=== PATIENT | female | born 1965 | race Caucasian/White ===

== ENCOUNTER 2016-10-31 15:00 | Emergency (ER) | payer MEDICARE, MEDICAID ==
[2016-10-31] MEDS ORDERED: Ondansetron 4 MG/2 ML SDV IVPUSH ONE (16:22)
[2016-10-31] MEDS ORDERED: Ketorolac 30 MG/ML SDV IVPUSH STA (16:25)
--- NOTE | 2016-10-31 16:27 | EDM.PDOC ---
ED HPI GENERAL MEDICAL PROBLEM - General Chief Complaint: Abdominal Pain Stated Complaint: BACK PAIN Time Seen by Provider: 10/31/16 15:14 Source of Information: Reports: Patient, Family (Daughter), Old Records, RN Notes Reviewed History Limitations: Reports: Uncooperative (The patient is yelling and screaming, while rolling around on the gurney. She answers few questions - most were answered by her daughter.) - History of Present Illness INITIAL COMMENTS - FREE TEXT/NARRATIVE: The patient states that she has been experiencing bloody diarrhea and left- sided abdominal pain for the past 2-1/2 months. She underwent a CT of the abdomen and pelvis with oral and IV contrast on 10/22/2016, which demonstrated an 8.8 cm cystic mass within the pelvis, most likely adnexal, although the differential included both benign as well as malignant ovarian tumors. The remainder of the CT scan was unremarkable. She then underwent a transvaginal ultrasound the following day, 10/23/26, which demonstrated a complex cystic structure up to 9.0 cm which could represent a complicated adnexal cyst, with the differential including both benign and malignant etiologies, as well as an old hematoma. She is scheduled for an EGD and colonoscopy per Dr. Maxwell this coming 11/04/2016. The patient states that she was experiencing some left lower quadrant abdominal cramping this morning, then went to the bathroom (likely both urination and defecation), then "something exploded" causing severe pain primarily on the left side of the abdomen, but felt all over, including to the left flank. She has had nausea, but no emesis. No recent fever. No urinary symptoms. No prior similar symptoms. The patient's PCP is Cathy Cramer. Treatments CONDUCTOR YARD: Reports: Other (see below) Other Treatments CONDUCTOR YARD: tramadol 100 mg at 1300 Left Lower Abdominal Pain Score (Numeric/FACES): 10 - Related Data Allergies Allergy/AdvReac Type Severity Reaction Status Date / Time acetaminophen Allergy Other Verified 10/31/16 15:02 benzonatate Allergy Cannot Verified 10/31/16 15:02 Remember ceftriaxone Allergy Redness Verified 10/31/16 15:02 cetirizine Allergy Hives Verified 10/31/16 15:02 morphine Allergy Cannot Verified 10/31/16 15:02 Remember Home Meds: Home Meds Aspirin [Ecotrin] 162.5 mg PO DAILY 03/09/14 [History] Pantoprazole [ProTONIX] 40 mg PO DAILY #30 tab.cr 05/14/14 [Rx] SUMAtriptan [Imitrex] 50 mg PO Q2H PRN #10 tablet 05/14/14 [Rx] HYDROcodone/Ibuprofen [Vicoprofen 7.5-200 mg Tablet] 1 each PO Q6H PRN #15 tablet 12/26/14 [Rx] LORazepam 0.5 mg PO DAILY PRN 11/29/15 [History] Orphenadrine [Norflex] 1 tab PO Q12H #20 tab.er 11/29/15 [Rx] Sertraline [Zoloft] 50 mg PO DAILY 11/29/15 [History] metFORMIN [Glucophage] 500 mg PO DAILY 11/29/15 [History] Past Medical History HEENT History: Reports: Other (See Below) Respiratory History: Reports: COPD Gastrointestinal History: Reports: GERD, Irritable Bowel Syndrome Genitourinary History: Reports: Renal Calculus 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: Other (See Below) (Ovarian cysts) Neurological History: Reports: CVA (2011, with left hemiparesis) Psychiatric History: Reports: Anxiety, Depression Endocrine/Metabolic History: Reports: Diabetes, Type II, Obesity/BMI 30+ Hematologic History: Reports: Iron Deficiency Oncologic (Cancer) History: Reports: Uterine - Past Surgical History GI Surgical History: Reports: Cholecystectomy Female Surgical History: Reports: Section (x 2), Hysterectomy, Tubal Ligation Social & Family History - Tobacco Use Smoking Status *Q: Former Smoker Years of Tobacco use: 30 Packs/Tins Daily: 4 Month Tobacco Last Used: Dec 2014 - Caffeine Use Caffeine Use: Reports: Coffee - Alcohol Use Days Per Week of Alcohol Use: 0 - Recreational Drug Use Recreational Drug Use: No - Living Situation & Occupation Living situation: Reports: , with Spouse Occupation: Unemployed ED ROS GENERAL - Review of Systems Review Of Systems: Unable To Obtain GI/Abdominal: Reports: Abdominal Pain (as per the HPI), Bloody Stool (as per the HPI), Diarrhea (as per the HPI) ED EXAM, GI/ABD - Physical Exam Exam: See Below Exam Limited By: Other (Patient histrionics) General Appearance: Alert, WD/WN, No Apparent Distress Eyes: Bilateral: Normal Appearance, EOMI Ears: Normal External Exam, Hearing Grossly Normal Nose: Normal Inspection, No Blood Throat/Mouth: Normal Inspection, Normal Lips, Normal Voice, No Airway Compromise Head: Atraumatic, Normocephalic Neck: Normal Inspection, Full Range of Motion Respiratory/Chest: No Respiratory Distress, Lungs Clear, Normal Breath Sounds, No Accessory Muscle Use Cardiovascular: Normal Peripheral Pulses, Regular Rate, Rhythm, No Gallop, No JVD, No Murmur, No Rub GI/Abdominal Exam: Normal Bowel Sounds, Soft, No Organomegaly, No Distention, No Abnormal Bruit, No Mass, Pelvis Stable, Tender (Patient reports tenderness to her left lower quadrant primarily, also to her left upper quadrant. Essentially nontender to the right abdomen.), Other (Obese.) (Female) Exam: Deferred Back Exam: Normal Inspection, Full Range of Motion, CVA Tenderness (L). No: CVA Tenderness (R) Extremities: Normal Inspection, Normal Range of Motion, No Pedal Edema, Normal Capillary Refill Neurological: Alert, Oriented, Normal Cognition, No Motor/Sensory Deficits Psychiatric: Other (Unable to assess) Skin Exam: Warm, Intact, Normal Color, No Rash, Diaphoretic Lymphatic: No Adenopathy Course - Vital Signs Last Recorded V/S: Last Vital Signs Temp 36.8 C 10/31/16 15:02 Pulse 80 10/31/16 15:02 Resp 20 10/31/16 15:02 BP 133/107 H 10/31/16 15:02 Pulse Ox 100 10/31/16 15:02 - Orders/Labs/Meds Orders: Active Orders 24 hr Category Date Time Status Sodium Chloride 0.9% [Normal Saline] 1,000 ml Med 10/31/16 16:30 Active IV ASDIRECTED Sodium Chloride 0.9% [Saline Flush] Med 10/31/16 17:29 Active 10 ml FLUSH ONETIME PRN Medication Orders Sodium Chloride (Normal Saline) 1,000 mls @ 150 mls/hr IV ASDIRECTED SREEDHAR Last Admin: 10/31/16 16:30 Dose: 150 mls/hr Sodium Chloride (Saline Flush) 10 ml FLUSH ONETIME PRN PRN Reason: IV FLUSH Last Admin: 10/31/16 17:38 Dose: 10 ml Labs: Laboratory Tests 10/31/16 10/31/16 10/31/16 Range/Units 16:22 16:22 16:57 WBC 9.62 (3.98-10.04) K/mm3 RBC 4.87 (3.98-5.22) M/mm3 Hgb 14.0 (11.2-15.7) gm/L Hct 42.5 (34.1-44.9) % MCV 87.3 (79.4-94.8) fl MCH 28.7 (25.6-32.2) pg MCHC 32.9 (32.2-35.5) g/dl RDW Std Deviation 43.6 (36.4-46.3) fL Plt Count 318 (182-369) K/mm3 MPV 10.3 (9.4-12.3) fl Neutrophils % (Manual) 52 (40-60) % Band Neutrophils % 0 (0-10) % Lymphocytes % (Manual) 43 H (20-40) % Atypical Lymphs % 0 % Monocytes % (Manual) 3 (2-10) % Eosinophils % (Manual) 2 (0.7-5.8) % Basophils % (Manual) 0 L (0.1-1.2) Platelet Estimate Adequate RBC Morph Comment Normal Sodium 141 (136-145) mEq/L Potassium 3.7 (3.5-5.1) mEq/L Chloride 103 (98-107) mEq/L Carbon Dioxide 28 (21-32) mEq/L Anion Gap 13.7 (5-15) BUN 14 (7-18) mg/dL Creatinine 0.8 (0.55-1.02) mg/dL Est Cr Clr Drug Dosing 65.80 mL/min Estimated GFR (MDRD) > 60 (>60) mL/min BUN/Creatinine Ratio 17.5 (14-18) Glucose 106 (74-106) mg/dL Calcium 9.9 (8.5-10.1) mg/dL Total Bilirubin 0.5 (0.2-1.0) mg/dL AST 39 H (15-37) U/L ALT 71 H (14-59) U/L Alkaline Phosphatase 69 (46-116) U/L Total Protein 7.6 (6.4-8.2) g/dl Albumin 4.2 (3.4-5.0) g/dl Globulin 3.4 gm/dL Albumin/Globulin Ratio 1.2 (1-2) Lipase 182 (73-393) U/L Urine Color Yellow (Yellow) Urine Appearance Slt cloudy H (Clear) Urine pH 7.0 (5.0-8.0) Ur Specific [place] 1.020 (1.005-1.030) Urine Protein Negative (Negative) Urine Glucose (UA) Negative (Negative) Urine Ketones Negative (Negative) Urine Occult Blood Trace-lysed H (Negative) Urine Nitrite Negative (Negative) Urine Bilirubin Negative (Negative) Urine Urobilinogen 0.2 (0.2-1.0) Ur Leukocyte Esterase Negative (Negative) Urine RBC 5-10 H (0-5) /hpf Urine WBC 0-5 (0-5) /hpf Ur Epithelial Cells 0-5 (0-5) /hpf Urine Bacteria Rare (FEW) /hpf Urine Mucus Not seen (FEW) /hpf Meds: Medications Generic Name Dose Route Start Last Admin Trade Name Freq PRN Reason Stop Dose Admin Sodium Chloride 1,000 mls @ 150 mls/hr 10/31/16 16:30 10/31/16 16:30 Normal Saline IV 150 mls/hr ASDIRECTED SREEDHAR Administration Sodium Chloride 10 ml 10/31/16 17:29 10/31/16 17:38 Saline Flush FLUSH 10 ml ONETIME PRN Administration IV FLUSH Discontinued Medications Generic Name Dose Route Start Last Admin Trade Name Freq PRN Reason Stop Dose Admin Diatrizoate Meglum/Diatrizoate Sod 120 ml 10/31/16 17:29 10/31/16 17:37 Gastrografin 37% PO 10/31/16 17:30 90 ml ONETIME ONE Administration Iopamidol 150 ml 10/31/16 17:29 10/31/16 17:37 Isovue-300 (61%) IVPUSH 10/31/16 17:30 125 ml ONETIME ONE Administration Ketorolac Tromethamine 30 mg 10/31/16 16:25 10/31/16 16:33 Toradol IVPUSH 10/31/16 16:26 30 mg ONETIME STA Administration Ondansetron HCl 4 mg 10/31/16 16:22 10/31/16 16:31 Zofran IVPUSH 10/31/16 16:23 4 mg ONETIME ONE Administration - Re-Assessments/Exams Free Text/Narrative Re-Assessment/Exam: 10/31/16 16:26 The patient is rolling around on the gurney, yelling and screaming. Her behavior appears to be histrionic. When seen by me in this ED 11/29/2015 for lower back pain, she was found to be malingering and drug-seeking. She was discharged home. She subsequently had an opportunity to have a MRI of her lumbar spine performed, but did not, instead, she had a MRI of her left knee performed on 02/27/2016, buttressing my assertion that she was malingering and drug seeking. 10/31/16 18:0 CT of the abdomen and pelvis with oral and IV contrast is read by Dr. Reich as: 1. Cystic mass within the pelvis slightly changed in configuration from prior study but otherwise unchanged. 2. Fatty infiltration within the liver. 3. Nothing acute is appreciated on CT study of the abdomen and pelvis. 10/31/16 18:05 Test results discussed with the patient and her daughter. The patient is hostile and screaming for pain medication. She was given Toradol 30 mg IVP earlier. She states that she is allergic to both Tylenol and morphine. Her behavior is not consistent with legitimate pain, rather, it is mostly histrionic , and with today's essentially normal workup that does not demonstrate an apparent painful process, it appears that the patient is again drug seeking. Review of the [place] INSURANCE EXAMINING CLERK finds that the patient has 21 prescriptions for controlled substances, by 5 prescribers. She most recently filled a prescription for tramadol 30 tablets on 10/23/2016. She has numerous prior prescriptions for Ativan. It is unclear, but the patient may be seeking one or both of these. Departure - Departure Time of Disposition: 18:07 Disposition: Home, Self-Care 01 Condition: Good Clinical Impression: Abdominal pain of unknown etiology, Drug-seeking behavior, Malingering - Discharge Information Instructions: Abdominal Pain, Adult, [id number] Referrals: Cathy Cramer PA-C [Primary Care Provider] - Forms: ED Department Discharge Additional Instructions: You were seen in the emergency room for left-sided abdominal pain and left flank pain. Workup in the ER included blood work, a urinalysis, and a CT scan of your abdomen and pelvis. Your entire workup was unremarkable. The CT scan redemonstrated a cystic mass within your left pelvis, however, there was no suggestion of bleeding or other inflammatory process, and the mass would not be responsible for your presentation. The cause of your symptoms is not known. We recommend you follow-up with your PCP, Cathy Cramer, at the next available appointment. We recommend you proceed with your previously scheduled EGD/colonoscopy with Dr. Maxwell this coming 11/04/2016. If any other problems, please do not hesitate to return to the ER. - My Orders Last 24 Hours: My Active Orders 10/31/16 16:30 Sodium Chloride 0.9% [Normal Saline] 1,000 ml IV ASDIRECTED 10/31/16 17:29 Sodium Chloride 0.9% [Saline Flush] 10 ml FLUSH ONETIME PRN - Assessment/Plan Last 24 Hours: My Active Orders 10/31/16 16:30 Sodium Chloride 0.9% [Normal Saline] 1,000 ml IV ASDIRECTED 10/31/16 17:29 Sodium Chloride 0.9% [Saline Flush] 10 ml FLUSH ONETIME PRN
[2016-10-31] MEDS ORDERED: Sodium Chloride 0.9% 1,000 ML IV SCH (16:30)
[2016-10-31] MEDS ORDERED: Diatrizoate Meglumine/Diatrizoate Sodium 37% 120 ML Bottle PO ONE (17:29)
[2016-10-31] MEDS ORDERED: Iopamidol 612 MG/ML 150 ML Bottle IVPUSH ONE (17:29)
[2016-10-31] MEDS ORDERED: Sodium Chloride 0.9% 10 ML Syringe FLUSH PRN (17:29)
--- NOTE | 2016-10-31 17:59 | CT ---
CT abdomen and pelvis Technique: Multiple axial sections were obtained from above the dome of the diaphragm inferiorly through the pubic symphysis. Intravenous and oral contrast was utilized. Delayed images were obtained through the bladder. Comparison: Previous CT abdomen and pelvis exam of 10/22/16. Findings: Visualized lung bases are clear. Liver shows diffuse fatty infiltration without focal abnormality. Surgical clips are seen from previous cholecystectomy. Spleen appears within normal limits. Adrenal glands show no nodule. Kidneys show symmetric contrast enhancement without hydronephrosis or mass. Pancreas is within normal limits. Appendix is seen and appears normal. Aorta shows no aneurysmal dilatation. No retroperitoneal adenopathy or mesenteric abnormalities are seen. Cystic mass is seen within the pelvis measuring 8.6 x 7.3 cm. This is slightly changed in configuration from prior study but otherwise unchanged. No additional pelvic abnormality is seen. No inflammatory change is seen. No free fluid is seen. Delayed images shows contrast within the distal ureters and within the bladder. Bone window settings were reviewed which shows disc space narrowing at L5-S1 with vacuum phenomena. Impression: 1. Cystic mass within the pelvis slightly changed in configuration from prior study but otherwise unchanged. 2. Fatty infiltration within the liver. 3. Nothing acute is appreciated on CT study of the abdomen and pelvis. Diagnostic code #3
[2016-10-31 18:33] VITALS: BP 145/80
== END 2016-10-31 18:15 | disposition home or self-care (01) ==
LOC: JD.ED 15:00
DX: R10.32 Left lower quadrant pain (principal); J44.9 Chronic obstructive pulmonary disease, unspecified; K21.9 Gastro-esophageal reflux disease without esophagitis; F41.9 Anxiety disorder, unspecified; F32.9 Major depressive disorder, single episode, unspecified; E11.9 Type 2 diabetes mellitus without complications; I69.354 Hemiplegia and hemiparesis following cerebral infarction affecting left non-dominant side; E66.9 Obesity, unspecified; Z76.5 Malingerer [conscious simulation]; Z87.442 Personal history of urinary calculi; Z85.42 Personal history of malignant neoplasm of other parts of uterus; Z90.49 Acquired absence of other specified parts of digestive tract; Z90.710 Acquired absence of both cervix and uterus; Z98.51 Tubal ligation status; Z98.890 Other specified postprocedural states; Z88.5 Allergy status to narcotic agent; Z88.8 Allergy status to other drugs, medicaments and biological substances; Z79.82 Long term (current) use of aspirin; Z79.84 Long term (current) use of oral hypoglycemic drugs; Z79.899 Other long term (current) drug therapy
CPT/HCPCS: 36415; 74177; 80053; 81001; 83690; 85025; 96361; 96374; 96375; 99284; J1885; J2405; J7040; J7050; P9612; Q9963; Q9967

== ENCOUNTER 2016-11-04 07:53 | Day surgery (SDC) | payer MEDICARE, MEDICAID ==
[~2016-11-04 07:53] MED LIST: Lactated Ringers 1,000 ML IV SCH; Lidocaine 1% 4 ML ONE; Lidocaine 1%/Sod Bicarbonate in NS 8.4% 1 ML Syringe PRN; Propofol 200 MG/20 ML SDV ONE; Sodium Chloride 0.9% 10 ML Syringe FLUSH PRN
--- NOTE | 2016-11-04 08:46 | PCM.PREANE ---
Preanesthetic Assessment - Anesthesia/Transfusion/Family Hx Anesthesia History: Prior Anesthesia Without Reaction Family History of Anesthesia Reaction: No Transfusion History: No Prior Transfusion(s) - Review of Systems General: No Symptoms Pulmonary: No Symptoms Cardiovascular: No Symptoms Gastrointestinal: Abdominal Pain (for 3 months), Diarrhea, Nausea Neurological: No Symptoms, Other (stroke 5 years ago- lost left side and 86% recovery) Other: Reports: Easy Bruising, Diabetes, Depression, Anxiety - Physical Assessment NPO Status Date: 11/03/16 NPO Status Time: 23:00 O2 Sat by Pulse Oximetry: 95 Respiratory Rate: 16 Vital Signs: Last Vital Signs Temp 96.8 F 11/04/16 08:05 Pulse 67 11/04/16 08:05 Resp 16 11/04/16 08:05 BP 118/85 11/04/16 08:05 Pulse Ox 95 11/04/16 08:05 Height: 5 ft 1 in Weight: 94.801 kg ASA Class: 3 Mental Status: Alert & Oriented x3 Airway Class: Mallampati = 1 Dentition: Reports: Partial (top at home) Thyro-Mental Finger Breadths: 3 Mouth Opening Finger Breadths: 3 ROM/Head Extension: Full Lungs: Clear to Auscultation, Normal Respiratory Effort Cardiovascular: Regular Rate, Regular Rhythm - Lab Values: Laboratory Last Values POC Glucose 108 mg/dL (70-105) H 11/04/16 08:22 10/31/16 HGB 14.0 Plt 318 Lytes WNL BUN 14 Cr .8 - Allergies Allergies/Adverse Reactions: Allergies Allergy/AdvReac Type Severity Reaction Status Date / Time acetaminophen Allergy Other Verified 10/31/16 15:02 benzonatate Allergy Airway Verified 11/01/16 11:26 Tightness ceftriaxone Allergy Hives Verified 11/01/16 11:26 cetirizine Allergy Hives Verified 10/31/16 15:02 morphine Allergy Airway Verified 11/01/16 11:26 Tightness Dust Allergy Other Uncoded 11/01/16 11:26 Pollen Allergy Other Uncoded 11/01/16 11:26 - Blood Blood Available: No - Acknowledgements Anesthesia Type Planned: MAC Pt an Appropriate Candidate for the Planned Anesthesia: Yes Alternatives and Risks of Anesthesia Discussed w Pt/Guardian: Yes Pt/Guardian Understands and Agrees with Anesthesia Plan: Yes PreAnesthesia Questionnaire HEENT History: Reports: Allergic Rhinitis, Hard of Hearing, Other (See Below) Other HEENT History: Tinnitus, ear itching Cardiovascular History: Reports: High Cholesterol Other Cardiovascular History: CVA in 2011 Respiratory History: Reports: COPD Other Respiratory History: emphysema Gastrointestinal History: Reports: GERD, Inflammatory Bowel Disease, Other (See Below) Other Gastrointestinal History: Abdominal pain, diarrhea Genitourinary History: Reports: Other (See Below) Other Genitourinary History: Dysuria, hematuria 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 (See Below) Other OB/BYN History: Pelvic mass Musculoskeletal History: Reports: Arthritis, Other (See Below) Other Musculoskeletal History: Medial meniscus tear Neurological History: Reports: CVA, Migraines, TIA, Vertigo, Other (See Below) Other Neuro History: Radial sensory nerve injury, loss of coordination, poor short term memory Psychiatric History: Reports: Anxiety Endocrine/Metabolic History: Reports: Diabetes, Type II, Obesity/BMI 30+ Hematologic History: Reports: None Immunologic History: Reports: Other (See Below) Other Immunologic History: IgG deficiency Oncologic (Cancer) History: Reports: Uterine Dermatologic History: Reports: None - Past Surgical History Head Surgeries/Procedures: Reports: None HEENT Surgical History: Reports: Oral Surgery (cysts) Cardiovascular Surgical History: Reports: None Respiratory Surgical History: Reports: None GI Surgical History: Reports: Cholecystectomy Female Surgical History: Reports: Section, Hysterectomy, Other (See Below) (ovarian cysts removed) Endocrine Surgical History: Reports: None Neurological Surgical History: Reports: None Musculoskeletal Surgical History: Reports: Other (See Below) Other Musculoskeletal Surgeries/Procedures:: Hand surgery Oncologic Surgical History: Reports: None - SUBSTANCE USE Smoking Status *Q: Former Smoker (quit dec 2013- smoked 1 ppd for 30plus years) Tobacco Use Within Last Twelve Months: No Second Hand Smoke Exposure: No Days Per Week of Alcohol Use: 0 Recreational Drug Use History: No - HOME MEDS Home Medications: Home Meds Aspirin [Ecotrin] 325 mg PO DAILY 03/09/14 [History] Pantoprazole [ProTONIX] 40 mg PO DAILY #30 tab.cr 05/14/14 [Rx] Sertraline [Zoloft] 100 mg PO DAILY 11/29/15 [History] metFORMIN [Glucophage] 500 mg PO DAILY 11/29/15 [History] SUMAtriptan [Imitrex] 50 mg PO ASDIRECTED PRN 11/01/16 [History] - CURRENT (IN HOUSE) MEDS Current Meds: Current Medications Lactated Ringer's (Ringers, Lactated) 1,000 mls @ 125 mls/hr IV ASDIRECTED SREEDHAR Stop: 11/04/16 23:00 Last Admin: 11/04/16 08:20 Dose: 125 mls/hr Lidocaine/Sodium Bicarbonate (Buffered Lidocaine 1% In Ns 8.4%) 0.25 ml .XX ONETIME PRN PRN Reason: Prior to IV Start Stop: 11/04/16 18:00 Last Admin: 11/04/16 08:20 Dose: 0.25 ml Sodium Chloride (Saline Flush) 10 ml FLUSH ASDIRECTED PRN PRN Reason: Keep Vein Open Stop: 11/04/16 18:00 Discontinued Medications Lidocaine HCl (Xylocaine-Mpf 1%) Confirm Administered Dose 4 mls @ as directed .ROUTE .STK-MED ONE Stop: 11/04/16 07:15 Propofol (Diprivan 20 Ml) Confirm Administered Dose 200 mg .ROUTE .STK-MED ONE Stop: 11/04/16 07:15
[2016-11-04] MEDS ORDERED: fentaNYL 100 MCG/2 ML SDV ONE (10:38)
[2016-11-04] MEDS ORDERED: Propofol 200 MG/20 ML SDV ONE (10:48)
--- NOTE | 2016-11-04 10:50 | PCM48HPAN ---
Post Anesthesia Note - EVALUATION WITHIN 48HRS OF ANESTHETIC Vital Signs in Normal Range: Yes Patient Participated in Evaluation: Yes Respiratory Function Stable: Yes Airway Patent: Yes Cardiovascular Function Stable: Yes Hydration Status Stable: Yes Pain Control Satisfactory: Yes Nausea and Vomiting Control Satisfactory: Yes Mental Status Recovered: Yes
--- NOTE | 2016-11-04 10:52 | PCM.OPNOTE ---
- General Post-Op/Procedure Note Date of Surgery/Procedure: 11/04/16 Operative Procedure(s): 1. Esophagogastroduodenoscopy with antral polypectomy using hot snare. 2. Colonoscopy with random rectal biopsies 2 using cold forceps Findings: 1. 8 mm antral polyp otherwise normal upper endoscopy 2. Sigmoid diverticulosis, no mass lesions Pre Op Diagnosis: Chronic diarrhea with red rectal bleeding and history of melena Post-Op Diagnosis: 1. Antral polyp. 2. Sigmoid diverticulosis, uncomplicated Anesthesia Technique: MAC, Moderate Sedation Primary Surgeon: Naren Maxwell Pathology: 1. Antral polyp 2. Random rectal biopsies 2 EBL in mLs: 0 Complications: None Condition: Good Free Text/Narrative:: After adequate IV sedation and analgesia was obtained the patient was placed on her left side. Through a bite block a lubricated upper endoscope was passed into the esophagus and advanced under direct vision to the stomach. Additional air was given here. The scope was introduced into the duodenum. The second and first parts of the duodenum were endoscopically normal with no mass lesions or inflammatory changes seen. The pylorus was unremarkable as well. At the incisure angularis there was a antral polyp which was removed with hot snare. In the retroflexed view there was no hiatal hernia. The fundus and cardiac regions were normal. The body of the stomach was unremarkable as well. There were no mass lesions or inflammatory changes seen in any of these areas. The body of the esophagus was normal. The GE junction was sharp and had no evidence of esophagitis. The vocal cords were briefly visualized on extubation and were normal. Perianal inspection and digital rectal examination were performed next and were unremarkable. A lubricated colonoscope was inserted into the rectum and easily advanced to the cecum without difficulty. The bowel preparation was adequate. The cecum, right colon, transverse and descending colons were endoscopically normal with no mass lesions or inflammatory changes seen in these areas. There was no extrinsic compression that was obvious. The sigmoid had a few scattered moderate size diverticuli which were uncomplicated. There was slight muscular hypertrophy in the sigmoid. The rectum in both views was unremarkable. Given her history of diarrhea I took 2 random biopsies for histologic evaluation. Air was removed as I finished the procedure. Cloth Bleaching Range Back Tender photographs were taken for each procedure for the and patient for the record.
[2016-11-04 11:02] VITALS: BP 120/84
== END 2016-11-04 11:30 | disposition home or self-care (01) ==
LOC: JD.SDS 07:53
PROVIDERS: ATTEND Surgery
DX: K31.7 Polyp of stomach and duodenum (principal); K57.30 Diverticulosis of large intestine without perforation or abscess without bleeding; M19.90 Unspecified osteoarthritis, unspecified site; J44.9 Chronic obstructive pulmonary disease, unspecified; K21.9 Gastro-esophageal reflux disease without esophagitis; E78.00 Pure hypercholesterolemia, unspecified; K58.9 Irritable bowel syndrome, unspecified; G43.909 Migraine, unspecified, not intractable, without status migrainosus; F41.9 Anxiety disorder, unspecified; E66.09 Other obesity due to excess calories; E11.9 Type 2 diabetes mellitus without complications; I10 Essential (primary) hypertension; Z86.73 Personal history of transient ischemic attack (TIA), and cerebral infarction without residual deficits; Z85.42 Personal history of malignant neoplasm of other parts of uterus; Z87.442 Personal history of urinary calculi; Z87.01 Personal history of pneumonia (recurrent); Z87.891 Personal history of nicotine dependence; Z88.1 Allergy status to other antibiotic agents; Z88.5 Allergy status to narcotic agent; Z88.6 Allergy status to analgesic agent; Z88.8 Allergy status to other drugs, medicaments and biological substances; Z91.048 Other nonmedicinal substance allergy status; Z79.82 Long term (current) use of aspirin; Z79.84 Long term (current) use of oral hypoglycemic drugs; Z79.52 Long term (current) use of systemic steroids; Z79.899 Other long term (current) drug therapy; Z90.49 Acquired absence of other specified parts of digestive tract; Z90.710 Acquired absence of both cervix and uterus; Z98.890 Other specified postprocedural states; Z68.37 Body mass index [BMI] 37.0-37.9, adult
CPT/HCPCS: 43251; 45380; 82962; J3010; J7120; 00810; 88305; J2704

== ENCOUNTER 2017-09-09 21:06 | Emergency (ER) | payer MEDICARE, MEDICAID ==
[2017-09-09 21:19] VITALS: BP 150/91
[2017-09-09] MEDS ORDERED: Acetaminophen/oxyCODONE 325-5 MG Tab PO ONE (22:35)
--- NOTE | 2017-09-09 22:43 | EDM.PDOC ---
ED HPI GENERAL MEDICAL PROBLEM - General Chief Complaint: Abdominal Pain Stated Complaint: PAIN IN LOWER AREA Time Seen by Provider: 09/09/17 22:21 Source of Information: Reports: Patient History Limitations: Reports: No Limitations - History of Present Illness INITIAL COMMENTS - FREE TEXT/NARRATIVE: 52 year old female presents for evaluation and treatment of vaginal pain. Patient reports she has been experiencing LLQ pain for the last few days. States the pain extends into her left groin and her left lower back. She denies any dysuria. Reports she has microscopic hematuria at all times but no gross hematuria. States at first she though the discomfort may be due to a skin infection as frequently gets what sounds to be yeast infections under her skin folds in her lower abdomen. She did not appreciate any skin changes. No fevers, chills, nausea or vomiting. Patient reports tonight she decided to soak in the bathtub to help with the discomfort. While getting out of the tube she appreciated tissue bulging out of her vagina. Patient also reports for the last few months she has had difficulty urinating. She will sit on the toilet and is unable to fully empty her bladder. She has to arch her back in order to urinate completely. Patient reports a past surgial history a hysterectomy with bilateral salpingoectomy and oophreceomy. Onset: Today Left Lower Abdominal Pain Score (Numeric/FACES): 10 - Related Data Allergies Allergy/AdvReac Type Severity Reaction Status Date / Time acetaminophen Allergy Other Verified 09/09/17 21:18 benzonatate Allergy Airway Verified 09/09/17 21:18 Tightness ceftriaxone Allergy Hives Verified 09/09/17 21:18 cetirizine Allergy Hives Verified 09/09/17 21:18 morphine Allergy Airway Verified 09/09/17 21:18 Tightness Dust Allergy Other Uncoded 11/01/16 11:26 Pollen Allergy Other Uncoded 11/01/16 11:26 Home Meds: Home Meds Aspirin [Ecotrin] 325 mg PO DAILY 03/09/14 [History] Pantoprazole [ProTONIX] 40 mg PO DAILY #30 tab.cr 05/14/14 [Rx] Sertraline [Zoloft] 100 mg PO DAILY 11/29/15 [History] metFORMIN [Glucophage] 500 mg PO DAILY 11/29/15 [History] SUMAtriptan [Imitrex] 50 mg PO ASDIRECTED PRN 11/01/16 [History] Acetaminophen/oxyCODONE [Percocet 325-5 MG] 1 each PO Q4HR PRN #10 tab 09/09/17 [Rx] Gabapentin [Neurontin] 300 mg PO BID 09/09/17 [History] Past Medical History HEENT History: Reports: Other (See Below) Other HEENT History: cyst on lower lip removed Cardiovascular History: Reports: Other (See Below) Other Cardiovascular History: CVA in 2011 Respiratory History: Reports: COPD Other Respiratory History: emphysema Gastrointestinal History: Reports: GERD, Irritable Bowel Syndrome Other Gastrointestinal History: Abdominal pain, diarrhea Genitourinary History: Reports: Renal Calculus Other Genitourinary History: Dysuria, hematuria 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: Other (See Below) Other OB/BYN History: x2, hysterectomy Musculoskeletal History: Reports: Back Pain, Chronic Other Musculoskeletal History: Medial meniscus tear Neurological History: Reports: CVA Other Neuro History: Radial sensory nerve injury, loss of coordination, poor short term memory Psychiatric History: Reports: Anxiety, Depression Endocrine/Metabolic History: Reports: Diabetes, Type II, Obesity/BMI 30+ Hematologic History: Reports: Iron Deficiency Immunologic History: Reports: Other (See Below) Other Immunologic History: IgG deficiency Oncologic (Cancer) History: Reports: Uterine Dermatologic History: Reports: None - Past Surgical History Head Surgeries/Procedures: Reports: None Respiratory Surgical History: Reports: None Endocrine Surgical History: Reports: None Other Musculoskeletal Surgeries/Procedures:: right hand reconstructive surgery, right foot recons surgery Oncologic Surgical History: Reports: None Social & Family History - Tobacco Use Smoking Status *Q: Never Smoker - Caffeine Use Caffeine Use: Reports: Coffee - Recreational Drug Use Recreational Drug Use: No - Living Situation & Occupation Living situation: Reports: , with Spouse Occupation: Unemployed ED ROS GENERAL - Review of Systems Review Of Systems: See Below Constitutional: Denies: Fever, Chills GI/Abdominal: Reports: Abdominal Pain (LLQ). Denies: Nausea, Vomiting : Reports: Other (difficulty with urination, having to change position in order to urinate; reports a vaginal mass). Denies: Dysuria ED EXAM, GI/ABD - Physical Exam Exam: See Below Exam Limited By: No Limitations General Appearance: Alert, WD/WN, No Apparent Distress, Obese Respiratory/Chest: No Respiratory Distress, Lungs Clear, Normal Breath Sounds Cardiovascular: Normal Peripheral Pulses, Regular Rate, Rhythm, No Murmur GI/Abdominal Exam: Normal Bowel Sounds, Soft, Non-Tender (Female) Exam: Other (rectrocele present at the vaginal opening) Neurological: Alert, Oriented, Normal Cognition Psychiatric: Normal Affect, Normal Mood Skin Exam: Warm, Dry, Normal Color, No Rash Course - Vital Signs Last Recorded V/S: Last Vital Signs Temp 97.9 F 09/09/17 21:15 Pulse 90 09/09/17 21:15 Resp 16 09/09/17 21:15 BP 150/91 H 09/09/17 21:15 Pulse Ox 93 L 09/09/17 21:15 - Orders/Labs/Meds Labs: Laboratory Tests 09/09/17 Range/Units 22:41 Urine Color Yellow (Yellow) Urine Appearance Clear (Clear) Urine pH 6.0 (5.0-8.0) Ur Specific [place] 1.025 (1.005-1.030) Urine Protein Negative (Negative) Urine Glucose (UA) Negative (Negative) Urine Ketones Negative (Negative) Urine Occult Blood 2+ H (Negative) Urine Nitrite Negative (Negative) Urine Bilirubin Negative (Negative) Urine Urobilinogen 0.2 (0.2-1.0) Ur Leukocyte Esterase Negative (Negative) Urine RBC 0-5 (0-5) /hpf Urine WBC 0-5 (0-5) /hpf Ur Epithelial Cells 0-5 (0-5) /hpf Urine Bacteria Not seen (FEW) /hpf Urine Mucus Not seen (FEW) /hpf Meds: Medications Discontinued Medications Generic Name Dose Route Start Last Admin Trade Name Dmitry PRN Reason Stop Dose Admin Oxycodone/Acetaminophen 1 tab 09/09/17 22:35 09/09/17 22:42 Percocet 325-5 Mg PO 09/09/17 22:36 1 tab ONETIME ONE Administration - Re-Assessments/Exams Free Text/Narrative Re-Assessment/Exam: 09/09/17 23:11 I reviewed the patient's UA results with her. She is feeling improved with the pain pill. Despite a listed allergy to tylenol she reports she has taken percocet in the past without problem. She has not had any respiratory difficulties or hives while in the ER. Patient appears to have pelvic organ prolapse. I believe she has a rectrocele. I will have her follow-up with her ob Dr. Desai to see if she would be a good candidate for a pessary or possible surgery. I will give her a few pain pills for the discomfort in the meantime. Discharge instructions as as documented. Departure - Departure Time of Disposition: 23:18 Disposition: Home, Self-Care 01 Clinical Impression: Prolapse of female pelvic organs, Rectocele - Discharge Information Prescriptions: Acetaminophen/oxyCODONE [Percocet 325-5 MG] 1 each PO Q4HR PRN #10 tab PRN Reason: Pain Instructions: Pelvic Organ Prolapse Referrals: Cathy Cramer PA-C [Primary Care Provider] - Kan Desai MD [Physician] - Forms: ED Department Discharge Additional Instructions: You were given medication in the ER that can affect your ability to drive and operate machinery. Do not drive or operate machinery within 12 hours of taking prescription narcotic pain medication. Percocet 1 tablet 4-6 hours as needed for severe pain not relieved by over-the- counter ibuprofen. Percocet is habit-forming, take as few of these as needed to control your pain. Do not drive or operate machinery within 12 hours of taking Percocet. Follow up with OB as soon as you able for further management of your rectocele. Please return to the ER for symptoms change or worsen.
== END 2017-09-09 23:35 | disposition home or self-care (01) ==
LOC: JD.ED 21:06
DX: N81.6 Rectocele (principal); N81.89 Other female genital prolapse; J44.9 Chronic obstructive pulmonary disease, unspecified; E11.9 Type 2 diabetes mellitus without complications; F41.9 Anxiety disorder, unspecified; F32.9 Major depressive disorder, single episode, unspecified; Z79.82 Long term (current) use of aspirin; Z79.899 Other long term (current) drug therapy; Z88.6 Allergy status to analgesic agent; Z88.1 Allergy status to other antibiotic agents; Z88.5 Allergy status to narcotic agent; Z88.8 Allergy status to other drugs, medicaments and biological substances; Z91.09 Other allergy status, other than to drugs and biological substances; Z79.84 Long term (current) use of oral hypoglycemic drugs
CPT/HCPCS: 81001; 99284; A9270

== ENCOUNTER 2017-11-01 19:29 | Emergency (ER) | payer MEDICARE, MEDICAID ==
[2017-11-01 19:53] VITALS: BP 154/107
--- NOTE | 2017-11-01 20:29 | EDM.PDOC ---
ED HPI GENERAL MEDICAL PROBLEM - General Chief Complaint: Genitourinary Problem Stated Complaint: MIKE URINE/BURNING FROM CATH BAG Time Seen by Provider: 11/01/17 20:08 Source of Information: Reports: Patient History Limitations: Reports: No Limitations - History of Present Illness INITIAL COMMENTS - FREE TEXT/NARRATIVE: 52-year-old female presents for evaluation and treatment of dysuria, leakage around her catheter and brown mike colored urine. Patient reports that symptoms started the last 2 days. She had a vaginal sling placed for uterine prolapse by Dr. Desai on Friday. She reports that she had both a cystocele and rectocele. She had an indwelling Balbu[place] catheter placed. Plans to have this catheter out on Friday and she is to follow-up with Dr. Desai on Friday afternoon. Reports on she developed vomiting and lower pelvic pain. She was seen by Dr. Jain and started on Macrobid. Had a UA done but is unaware of culture results. She states that the last 2 days she is appreciated dysuria, hematuria, nausea, vomiting, diaphoresis and chills. No fevers. She has chronic back pain is not appreciating change this. She has been taking the Macrobid as prescribed. Bladder Pain Score (Numeric/FACES): 7 - Related Data Allergies Allergy/AdvReac Type Severity Reaction Status Date / Time acetaminophen Allergy Other Verified 11/01/17 19:49 benzonatate Allergy Airway Verified 11/01/17 19:49 Tightness ceftriaxone Allergy Hives Verified 11/01/17 19:49 cetirizine Allergy Hives Verified 11/01/17 19:49 house dust Allergy Other Verified 11/01/17 19:49 morphine Allergy Airway Verified 11/01/17 19:49 Tightness pollen extracts Allergy Other Verified 11/01/17 19:49 Home Meds: Home Meds Aspirin [Ecotrin] 325 mg PO DAILY 03/09/14 [History] Pantoprazole [ProTONIX] 40 mg PO DAILY #30 tab.cr 05/14/14 [Rx] metFORMIN [Glucophage] 500 mg PO DAILY 11/29/15 [History] SUMAtriptan [Imitrex] 50 mg PO ASDIRECTED PRN 11/01/16 [History] Gabapentin [Neurontin] 300 mg PO BEDTIME 09/09/17 [History] Estradiol [Estrace 0.01% Vaginal Crm] 1 dose VAG ASDIRECTED 10/27/17 [History] Meloxicam 15 mg PO DAILY 10/27/17 [History] Pramipexole Di-HCl [Mirapex] 0.25 mg PO BEDTIME 10/27/17 [History] buPROPion HCl [Wellbutrin Xl] 150 mg PO DAILY 10/27/17 [History] traMADol [Ultram] 50 - 100 mg PO Q6H PRN 10/27/17 [History] Bethanechol Chloride [Urecholine] 10 mg PO QID #80 tablet 10/29/17 [Rx] Nitrofurantoin Monohyd/M-Cryst [Macrobid 100 mg Capsule] 100 mg PO Q12H #20 capsule 10/29/17 [Rx] traMADol [Ultram] 50 mg PO Q6H PRN #80 tablet 10/29/17 [Rx] Past Medical History HEENT History: Reports: Allergic Rhinitis, Hard of Hearing, Impaired Vision, Other (See Below) Other HEENT History: cyst on lower lip removed, upper partial, tinnitis, tonsillitis. Cardiovascular History: Reports: High Cholesterol, Hypertension, Other (See Below) Other Cardiovascular History: CVA in 2011 Respiratory History: Reports: COPD Other Respiratory History: emphysema Gastrointestinal History: Reports: Chronic Diarrhea, GERD, Irritable Bowel Syndrome Other Gastrointestinal History: Abdominal pain, diarrhea Genitourinary History: Reports: Renal Calculus Other Genitourinary History: Dysuria, hematuria, midline cystocele, urgency, vaginal atrophy. 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) Other BONDERIZER History: x2, hysterectomy Musculoskeletal History: Reports: Arthritis, Back Pain, Chronic Other Musculoskeletal History: Left Medial meniscus tear, gait abnormailty, hyperextension knee injury Neurological History: Reports: CVA Other Neuro History: Radial sensory nerve injury, loss of sensation 3d 4th 5th fingers of rt hand, Lt foot numbness (pt uses foot brace), loss of coordination , poor short term memory Psychiatric History: Reports: Anxiety, Depression Endocrine/Metabolic History: Reports: Diabetes, Type II, Obesity/BMI 30+ Hematologic History: Reports: Iron Deficiency Immunologic History: Reports: Other (See Below) Other Immunologic History: IgG deficiency Oncologic (Cancer) History: Reports: Uterine Dermatologic History: Reports: None, Venous Stasis Dermatitis Other Dermatologic History: eipdermal cyst - Past Surgical History Head Surgeries/Procedures: Reports: None HEENT Surgical History: Reports: Oral Surgery Cardiovascular Surgical History: Reports: None Respiratory Surgical History: Reports: None GI Surgical History: Reports: Cholecystectomy Female Surgical History: Reports: Section, Cystectomy, Hysterectomy , Salpingo-Oophorectomy, Other (See Below) Endocrine Surgical History: Reports: None Musculoskeletal Surgical History: Reports: Other (See Below) Other Musculoskeletal Surgeries/Procedures:: right hand reconstructive surgery, right foot recons surgery Oncologic Surgical History: Reports: None Social & Family History - Family History Family Medical History: Noncontributory - Caffeine Use Caffeine Use: Reports: Coffee, Soda - Living Situation & Occupation Living situation: Reports: , with Spouse Occupation: Unemployed ED ROS GENERAL - Review of Systems Review Of Systems: See Below Constitutional: Reports: Chills, Diaphoresis. Denies: Fever GI/Abdominal: Reports: Nausea, Vomiting (, none since) : Reports: Dysuria, Hematuria (brown, rust colored urine), Other (reports leakage around her cathater) Musculoskeletal: Denies: Back Pain (chronic, no change) ED EXAM, RENAL/ - Physical Exam Exam: See Below Exam Limited By: No Limitations General Appearance: Alert, WD/WN, No Apparent Distress, Obese Throat/Mouth: Normal Inspection, Normal Voice, No Airway Compromise Respiratory/Chest: No Respiratory Distress, Lungs Clear, Normal Breath Sounds Cardiovascular: Normal Peripheral Pulses, Regular Rate, Rhythm, No Murmur GI/Abdominal: Soft, Non-Tender (Female) Exam: Other (leg bag + gross hematuria) Neurological: Alert, Oriented, Normal Cognition Psychiatric: Normal Affect, Normal Mood Skin Exam: Warm, Dry, Normal Color Course - Vital Signs Last Recorded V/S: Last Vital Signs Temp 97.6 F 11/01/17 19:50 Pulse 98 11/01/17 19:50 Resp 16 11/01/17 19:50 BP 154/107 H 11/01/17 19:50 Pulse Ox 98 11/01/17 19:50 - Orders/Labs/Meds Labs: Laboratory Tests 11/01/17 Range/Units 20:50 Urine Color Brown H (Yellow) Urine Appearance Cloudy H (Clear) Urine pH 6.5 (5.0-8.0) Ur Specific [place] > or = 1.030 (1.005-1.030) Urine Protein 2+ H (Negative) Urine Glucose (UA) Negative (Negative) Urine Ketones Negative (Negative) Urine Occult Blood 3+ H (Negative) Urine Nitrite Negative (Negative) Urine Bilirubin Negative (Negative) Urine Urobilinogen 0.2 (0.2-1.0) Ur Leukocyte Esterase Negative (Negative) Urine RBC Too numerous to cnt H (0-5) /hpf Urine WBC 0-5 (0-5) /hpf Ur Epithelial Cells 0-5 (0-5) /hpf Urine Bacteria Few (FEW) /hpf Urine Mucus Not seen (FEW) /hpf - Re-Assessments/Exams Free Text/Narrative Re-Assessment/Exam: 11/01/17 22:15 Reviewed the urine results with the patient. I will have her continue on the Macrobid. Recent culture shows no growth, however, recent UA on + nitrites and moderate bacteria on microscopy. We will change out her catheter and hopefully this will prevent leakage around the catheter her. Discharge instructions as documented. 11/01/17 22:38 Nursing staff changed cathater prior to d/c. Tolerated well. No complications. only 8mls present in balloon. Departure - Departure Time of Disposition: 22:15 Disposition: Home, Self-Care 01 Condition: Fair Clinical Impression: Dysuria, Catheter cystitis - Discharge Information *PRESCRIPTION DRUG MONITORING PROGRAM REVIEWED*: No *COPY OF PRESCRIPTION DRUG MONITORING REPORT IN PATIENT JAY JAY: No Instructions: Dysuria Referrals: Kan Desai MD [Primary Care Provider] - Forms: ED Department Discharge Additional Instructions: Continuing your Macrobid as prescribed. make sure you are drinking plenty of fluids. Follow-up with Dr. Desai Friday as planned. Please return to the ER if your symptoms change or worsen.
== END 2017-11-01 22:28 | disposition home or self-care (01) ==
LOC: JD.ED 19:29
DX: T83.511A Infection and inflammatory reaction due to indwelling urethral catheter, initial encounter (principal); R30.0 Dysuria; E78.00 Pure hypercholesterolemia, unspecified; I10 Essential (primary) hypertension; Z46.6 Encounter for fitting and adjustment of urinary device; J44.9 Chronic obstructive pulmonary disease, unspecified; Z88.6 Allergy status to analgesic agent; Z88.8 Allergy status to other drugs, medicaments and biological substances; Z79.899 Other long term (current) drug therapy; Z79.82 Long term (current) use of aspirin; Z79.84 Long term (current) use of oral hypoglycemic drugs
CPT/HCPCS: 81001; 99283

== ENCOUNTER 2018-05-23 16:55 | Emergency (ER) | payer MEDICARE, MEDICAID ==
[2018-05-23 17:14] VITALS: BP 147/95
[2018-05-23] MEDS ORDERED: HYDROmorphone 1 MG/ML Syringe IM ONE ×2 (17:31→19:45)
--- NOTE | 2018-05-23 17:39 | EDM.PDOC ---
ED HPI GENERAL MEDICAL PROBLEM - General Chief Complaint: Upper Extremity Injury/Pain Stated Complaint: LT ARM AND SHOULDER INJURY Time Seen by Provider: 05/23/18 17:14 Source of Information: Reports: Patient, RN Notes Reviewed History Limitations: Reports: No Limitations - History of Present Illness INITIAL COMMENTS - FREE TEXT/NARRATIVE: Patient is a 53-year-old female who presents to the ED for the evaluation of left arm pain after a fall. She states that she was outside playing with her grandchildren when she was trying to go back into the house and ended up possibly tripping over a stair and ended up falling into the railing onto her left arm. This resulted in her left arm going backward behind her. She states that she thought she heard a popping noise at this time. She did not hit her head or lose consciousness. The patient states that she had extreme pain after this incident and was not able to move her left arm as she normally would. She states that this incident happened around 4 PM this afternoon. She is able to make a fist however her warp dyeing tender strength is decreased due to pain. She would rate her pain at a 10 out of 10 today. She states that she does have pain that radiates into the left side of her neck, clavicle, shoulder, left upper arm. She denies any numbness or tingling to her fingers in her left arm. She denies pain anywhere else in her body. 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: Other (see below) Other Treatments BUSINESS QUALITY ASSURANCE ANALYST: none Left Upper Arm Pain Score (Numeric/FACES): 10 - Related Data Allergies Allergy/AdvReac Type Severity Reaction Status Date / Time acetaminophen Allergy Other Verified 11/01/17 19:49 benzonatate Allergy Airway Verified 11/01/17 19:49 Tightness ceftriaxone Allergy Hives Verified 11/01/17 19:49 cetirizine Allergy Hives Verified 11/01/17 19:49 house dust Allergy Other Verified 11/01/17 19:49 morphine Allergy Airway Verified 11/01/17 19:49 Tightness pollen extracts Allergy Other Verified 11/01/17 19:49 Home Meds: Home Meds Aspirin [Ecotrin] 325 mg PO DAILY 03/09/14 [History] Pantoprazole [ProTONIX] 40 mg PO DAILY #30 tab.cr 05/14/14 [Rx] metFORMIN [Glucophage] 500 mg PO DAILY 11/29/15 [History] SUMAtriptan [Imitrex] 50 mg PO ASDIRECTED PRN 11/01/16 [History] Gabapentin [Neurontin] 300 mg PO BEDTIME 09/09/17 [History] Estradiol [Estrace 0.01% Vaginal Crm] 1 dose VAG ASDIRECTED 10/27/17 [History] Meloxicam 15 mg PO DAILY 10/27/17 [History] Pramipexole Di-HCl [Mirapex] 0.25 mg PO BEDTIME 10/27/17 [History] buPROPion HCl [Wellbutrin Xl] 150 mg PO DAILY 10/27/17 [History] traMADol [Ultram] 50 - 100 mg PO Q6H PRN 10/27/17 [History] Bethanechol Chloride [Urecholine] 10 mg PO QID #80 tablet 10/29/17 [Rx] Nitrofurantoin Monohyd/M-Cryst [Macrobid 100 mg Capsule] 100 mg PO Q12H #20 capsule 10/29/17 [Rx] traMADol [Ultram] 50 mg PO Q6H PRN #80 tablet 10/29/17 [Rx] Acetaminophen/HYDROcodone [Brent 325-5 MG] 1 tab PO Q6H PRN #28 tablet 05/23/18 [Rx] Past Medical History HEENT History: Reports: Allergic Rhinitis, Hard of Hearing, Impaired Vision, Other (See Below) Other HEENT History: cyst on lower lip removed, upper partial, tinnitis, tonsillitis. Cardiovascular History: Reports: High Cholesterol, Hypertension, Other (See Below) Other Cardiovascular History: CVA in 2011 Respiratory History: Reports: COPD Other Respiratory History: emphysema Gastrointestinal History: Reports: Chronic Diarrhea, GERD, Irritable Bowel Syndrome Other Gastrointestinal History: Abdominal pain, diarrhea Genitourinary History: Reports: Renal Calculus Other Genitourinary History: Dysuria, hematuria, midline cystocele, urgency, vaginal atrophy. 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: Other (See Below) Other BROKER ASSISTANT History: x2, hysterectomy Musculoskeletal History: Reports: Arthritis, Back Pain, Chronic Other Musculoskeletal History: Left Medial meniscus tear, gait abnormailty, hyperextension knee injury Neurological History: Reports: CVA Other Neuro History: Radial sensory nerve injury, loss of sensation 3d 4th 5th fingers of rt hand, Lt foot numbness (pt uses foot brace), loss of coordination , poor short term memory Psychiatric History: Reports: Anxiety, Depression Endocrine/Metabolic History: Reports: Diabetes, Type II, Obesity/BMI 30+ Hematologic History: Reports: Iron Deficiency Immunologic History: Reports: Other (See Below) Other Immunologic History: IgG deficiency Oncologic (Cancer) History: Reports: Uterine Dermatologic History: Reports: None, Venous Stasis Dermatitis Other Dermatologic History: eipdermal cyst - Past Surgical History Head Surgeries/Procedures: Reports: None HEENT Surgical History: Reports: Oral Surgery Cardiovascular Surgical History: Reports: None Respiratory Surgical History: Reports: None GI Surgical History: Reports: Cholecystectomy Female Surgical History: Reports: Section, Cystectomy, Hysterectomy , Salpingo-Oophorectomy, Other (See Below) Endocrine Surgical History: Reports: None Musculoskeletal Surgical History: Reports: Other (See Below) Other Musculoskeletal Surgeries/Procedures:: right hand reconstructive surgery, right foot recons surgery Oncologic Surgical History: Reports: None Social & Family History - Family History Family Medical History: Noncontributory - Caffeine Use Caffeine Use: Reports: Coffee, Soda - Living Situation & Occupation Living situation: Reports: , with Spouse Occupation: Unemployed Review of Systems - Review of Systems Review Of Systems: See Below Constitutional: Reports: No Symptoms Eyes: Reports: No Symptoms Ears: Reports: No Symptoms Nose: Reports: No Symptoms Mouth/Throat: Reports: No Symptoms Respiratory: Reports: No Symptoms Cardiovascular: Reports: No Symptoms GI/Abdominal: Reports: No Symptoms Genitourinary: Reports: No Symptoms Musculoskeletal: Reports: Neck Pain (Left lateral), Shoulder Pain (Left), Arm Pain ( left upper arm) Skin: Reports: No Symptoms Neurological: Denies: Numbness, Tingling Psychiatric: Reports: No Symptoms ED EXAM, GENERAL - Physical Exam Exam: See Below Exam Limited By: No Limitations General Appearance: Alert, WD/WN, Mild Distress Nose: Normal Inspection Throat/Mouth: Normal Inspection, Normal Oropharynx, No Airway Compromise Head: Atraumatic, Normocephalic Neck: Normal Inspection, Supple, Non-Tender, Full Range of Motion Respiratory/Chest: No Respiratory Distress, Lungs Clear, Normal Breath Sounds, No Accessory Muscle Use, Chest Non-Tender Cardiovascular: Normal Peripheral Pulses, Regular Rate, Rhythm, No Murmur Back Exam: Normal Inspection, Full Range of Motion Extremities: Normal Capillary Refill, Arm Pain (Patient has pain to left upper arm with minimal manipulation, there is a slight deformity to her left humerus midshaft, she does have pain to palpation just superior to her left clavicle as well.), Limited Range of Motion (Patient cannot move her left arm much due to pain, she can warp dyeing tender my fingers but strength is weakened substantially.) Neurological: Alert, Oriented, Normal Cognition Psychiatric: Normal Affect, Normal Mood Skin Exam: Warm, Dry, Intact, Normal Color, No Rash Course - Vital Signs Last Recorded V/S: Last Vital Signs Temp 97.2 F 05/23/18 17:13 Pulse 62 05/23/18 17:13 Resp 24 H 05/23/18 17:13 BP 147/95 H 05/23/18 17:13 Pulse Ox 99 05/23/18 17:13 - Orders/Labs/Meds Orders: Active Orders 24 hr Category Date Time Status Clavicle Lt [CR] Stat Exams 05/23/18 17:28 Taken Humerus Lt [CR] Stat Exams 05/23/18 17:28 Taken Shoulder Comp Lt [CR] Stat Exams 05/23/18 17:28 Taken Shoulder wo Cont Lt [CT] Stat Exams 05/23/18 19:04 Taken Meds: Medications Discontinued Medications Generic Name Dose Route Start Last Admin Trade Name Freq PRN Reason Stop Dose Admin Hydromorphone HCl 1 mg 05/23/18 17:31 05/23/18 17:44 Dilaudid IM 05/23/18 17:32 1 mg ONETIME ONE Administration Hydromorphone HCl 1 mg 05/23/18 19:45 05/23/18 19:54 Dilaudid IM 05/23/18 19:46 1 mg ONETIME ONE Administration - Re-Assessments/Exams Free Text/Narrative Re-Assessment/Exam: 05/23/18 17:42 Patient presents to the ED for evaluation of left arm pain after a fall. Did order 1 mg IM Dilaudid for pain management. I have ordered a left clavicle, left shoulder, left humerus x-ray in further evaluation of this. I am suspicious that she didn't break her left humerus in this fall. 05/23/18 19:07 Patient's shoulder x-ray shows a non-acute nondisplaced fracture of the greater tubercle of the left humerus. Increased density to the humeral head suggestive of a bony infarct, CT scan is suggested to rule out possible neoplastic process. I did order a left shoulder CT without contrast in evaluation of this. I did make the patient aware of the x-ray findings and the possibility that there may be a cancerous lesion in her shoulder. She is agreeable to the CT. 05/23/18 19:30 Dr. Stoll was consulted on this case through [facility] in [place] and he recommends that she wear a regular sling over the weekend no need for immobilization at this time. He states that she may do pendulum exercises if she feels that the shoulder is getting stiff. He states that Dr. Dallas should be able to provide adequate follow-up early next week. 05/23/18 19:[address] is done and V-rad demonstrates a lytic lesion with calcified chondroid matrix noted. There is a comminuted pathological fracture through the lytic lesion in the possibility of a bone neoplasm should be considered. Enchondroma may give this appearance, however I cannot totally rule out a sarcoma. Tissue sampling is suggested and an MRI would be helpful to rule out soft tissue mass. Departure - Departure Time of Disposition: 19:59 Disposition: Home, Self-Care 01 Condition: Fair Clinical Impression: Humeral head fracture Qualifiers: Encounter type: initial encounter Fracture type: closed Laterality: left Qualified Code(s): S42.292A - Other displaced fracture of upper end of left humerus, initial encounter for closed fracture - Discharge Information *PRESCRIPTION DRUG MONITORING PROGRAM REVIEWED*: No *COPY OF PRESCRIPTION DRUG MONITORING REPORT IN PATIENT JAY JAY: No Prescriptions: Acetaminophen/HYDROcodone [Brent 325-5 MG] 1 tab PO Q6H PRN #28 tablet PRN Reason: Pain Instructions: Humerus Fracture Treated With Immobilization, [id number], Pain Medicine Instructions, [id number] Referrals: Cathy Cramer PA-C [Primary Care Provider] - Forms: ED Department Discharge Additional Instructions: You have been evaluated in the ED for your left shoulder pain. Your x-ray demonstrated a fracture of your left humerus head. The CT scan done on your shoulder today noted a lytic lesion in the ER humeral head, this is consistent with the possibility of a neoplasm but they recommend that tissue samples be taken of this affected area for further evaluation. This may be done by your primary care provider please schedule yourself an appointment with your provider so that they may be able to take tissue samples. The radiologist reads this as a possible enchondroma versus a sarcoma. Please use ice as tolerated to the affected area. You may do pendulum exercises as tolerated if your shoulders feel stiff. These have been demonstrated to you. Otherwise please use the sling for shoulder immobilization. You may take Tylenol 500 mg or ibuprofen 600mg q6 hours for pain relief. Please do so until you have a tolerable level of pain with activity. Do not exceed 4000mg Tylenol, Do not exceed 3200mg ibuprofen in a 24 hour time period. You have been provided with Brent tablets for pain relief not managed by Tylenol or ibuprofen alone. These do have an opioid pain medication in them and these can be constipating; if you need to take the Brent tablets please take a stool softener in conjunction with this to avoid constipation. Please do not drive while taking the Brent. The Brent tablets were electronically prescribed to the [place] pharmacy located in the [facility] [employer] close to [facility]. Please call Ortho for follow-up and further evaluation. Dr. Dallas is our orthopedic surgeon, his office number is [phone]. Please call and set up an appointment as soon as possible for further management. Please return to ED if your symptoms should change or worsen. - My Orders Last 24 Hours: My Active Orders 05/23/18 17:28 Clavicle Lt [CR] Stat Humerus Lt [CR] Stat Shoulder Comp Lt [CR] Stat 05/23/18 19:04 Shoulder wo Cont Lt [CT] Stat - Assessment/Plan Last 24 Hours: My Active Orders 05/23/18 17:28 Clavicle Lt [CR] Stat Humerus Lt [CR] Stat Shoulder Comp Lt [CR] Stat 05/23/18 19:04 Shoulder wo Cont Lt [CT] Stat
--- NOTE | 2018-05-25 07:38 | CR ---
Left humerus: Two views of the left humerus were obtained. Bony lesion noted within the proximal left humerus. Pathologic fracture noted in this area involving the posterolateral humeral head. Fracture is slightly comminuted. Distal portions of the humerus appear unremarkable. Impression: 1. Bony lesion within the proximal left humerus as described on subsequent CT study. 2. Pathologic fracture showing mild comminution noted within the posterolateral humeral head. Diagnostic code #9 I agree with preliminary report from [facility], finalized on 05/23/18, 7:51 PM Central Time
--- NOTE | 2018-05-25 07:38 | CR ---
Left shoulder: Three views of the left shoulder were obtained. Comparison: No previous shoulder study. Prior chest x-ray of 05/09/14 partially showing the left shoulder. Bony lesion is seen within the proximal left humerus showing areas of sclerosis. This is partially visualized on the previous chest x-ray and presumably represents a benign chondroid lesion. Pathologic fracture is identified within the posterolateral humeral head with mild displacement and comminution. No additional fracture or other abnormality is seen. Impression: 1. 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 2. Pathologic fracture within the posterolateral humeral head. Diagnostic code #3
--- NOTE | 2018-05-25 08:14 | CR ---
Left clavicle: Two views of the left clavicle were obtained. Comparison: No previous clavicle study. Bony lesion is seen within the proximal humerus with proximal humeral fracture. Clavicle shows no fracture. No additional abnormality is seen. Impression: 1. Bony lesion within the proximal left humerus described on subsequent CT exam. Fracture within the proximal humerus noted. 2. Nothing acute is seen within the left clavicle. Diagnostic code #3 I agree with preliminary report from [facility], finalized on 05/23/18, 7:52 PM Central Time
--- NOTE | 2018-05-25 12:57 | CT ---
CT left shoulder Technique: Multiple axial sections through the left shoulder were obtained. Reconstructed coronal and sagittal images were reviewed. Comparison: Previous chest x-ray of 05/09/14 partially showing the left shoulder Findings: Bony lesion is seen showing lucency. There appears to be some central chondroid matrix. Bony lesion measures approximately 3.4 cm in dimension. Pathologic fracture seen through this bony lesion showing mild comminution with displacement up to 1.2 cm. Glenoid and scapula appear intact. Distal clavicle is intact. Impression: 1. Bony lesion within the humeral head most likely representing chondroid lesion. This is felt most likely to be benign as this appears to be fairly stable from prior chest x-ray. 2. Pathologic fracture through this bony lesion showing mild displacement and comminution. Diagnostic code #9 I agree with preliminary report from [facility], finalized on 05/23/18, 8:[address] [facility]
== END 2018-05-23 20:36 | disposition home or self-care (01) ==
LOC: JD.ED 16:55
DX: S42.292A Other displaced fracture of upper end of left humerus, initial encounter for closed fracture (principal); I10 Essential (primary) hypertension; E78.00 Pure hypercholesterolemia, unspecified; K21.9 Gastro-esophageal reflux disease without esophagitis; Z86.73 Personal history of transient ischemic attack (TIA), and cerebral infarction without residual deficits; Z88.6 Allergy status to analgesic agent; Z88.8 Allergy status to other drugs, medicaments and biological substances; Z88.5 Allergy status to narcotic agent; Z79.82 Long term (current) use of aspirin; Z79.899 Other long term (current) drug therapy; W19.XXXA Unspecified fall, initial encounter
CPT/HCPCS: 73000; 73030; 73060; 73200; 96372; 99284; J1170; 99283

== ENCOUNTER 2019-04-17 17:23 | Emergency (ER) | payer MEDICARE, MEDICAID ==
[2019-04-17 17:48] VITALS: BP 126/102; PULSE 100
[2019-04-17] MEDS ORDERED: FLU Vacc QS2019-20(6MOS+)/PF 60 MCG/0.5 ML SYRINGE IM ONE (18:00)
--- NOTE | 2019-04-17 18:39 | EDM.PDOC ---
ED HPI GENERAL MEDICAL PROBLEM - General Chief Complaint: Upper Extremity Injury/Pain Stated Complaint: L ARM INJURY Time Seen by Provider: 04/17/19 17:52 Source of Information: Reports: Patient History Limitations: Reports: No Limitations - History of Present Illness INITIAL COMMENTS - FREE TEXT/NARRATIVE: The patient presents with left shoulder pain. She had shoulder surgery by Dr Nelson a few months ago. She has been doing good. The other day she was shoveling and she reached to far back and she felt a shooting pain and a snap. She has pain with movement now and some numbness to her hand. She still can move her shoulder. It just hurts. Onset: Sudden Duration: Day(s): Location: Reports: Upper Extremity, Left (shouler) Quality: Reports: Sharp Severity: Moderate Improves with: Reports: Immobilization Worsens with: Reports: Movement Associated Symptoms: Reports: No Other Symptoms Left Upper Arm Pain Score (Numeric/FACES): 10 - Related Data Allergies Allergy/AdvReac Type Severity Reaction Status Date / Time acetaminophen Allergy Other Verified 04/17/19 17:47 benzonatate Allergy Airway Verified 04/17/19 17:47 Tightness ceftriaxone Allergy Hives Verified 04/17/19 17:47 cetirizine Allergy Hives Verified 04/17/19 17:47 house dust Allergy Other Verified 04/17/19 17:47 morphine Allergy Airway Verified 04/17/19 17:47 Tightness pollen extracts Allergy Other Verified 04/17/19 17:47 Home Meds: Home Meds Aspirin [Ecotrin EC] 325 mg PO DAILY 03/09/14 [History] Pantoprazole [ProTONIX] 40 mg PO DAILY #30 tab.cr 05/14/14 [Rx] metFORMIN [Glucophage] 500 mg PO DAILY 11/29/15 [History] SUMAtriptan [Imitrex] 50 mg PO ASDIRECTED PRN 11/01/16 [History] Gabapentin [Neurontin] 300 mg PO BEDTIME 09/09/17 [History] Meloxicam 15 mg PO DAILY 10/27/17 [History] Pramipexole Di-HCl [Mirapex] 0.25 mg PO BEDTIME 10/27/17 [History] buPROPion HCl [Wellbutrin Xl] 150 mg PO DAILY 10/27/17 [History] estradioL [Estrace 0.01% Vaginal Crm] 1 dose VAG ASDIRECTED 10/27/17 [History] traMADol [Ultram] 50 - 100 mg PO Q6H PRN 10/27/17 [History] Bethanechol Chloride [Urecholine] 10 mg PO QID #80 tablet 10/29/17 [Rx] Nitrofurantoin Monohyd/M-Cryst [Macrobid 100 mg Capsule] 100 mg PO Q12H #20 capsule 10/29/17 [Rx] traMADol [Ultram] 50 mg PO Q6H PRN #80 tablet 10/29/17 [Rx] Past Medical History HEENT History: Reports: Allergic Rhinitis, Hard of Hearing, Impaired Vision, Other (See Below) Other HEENT History: cyst on lower lip removed, upper partial, tinnitis, tonsillitis. Cardiovascular History: Reports: High Cholesterol, Hypertension, Other (See Below) Other Cardiovascular History: CVA in 2011 Respiratory History: Reports: COPD Other Respiratory History: emphysema Gastrointestinal History: Reports: Chronic Diarrhea, GERD, Irritable Bowel Syndrome Other Gastrointestinal History: Abdominal pain, diarrhea Genitourinary History: Reports: Renal Calculus Other Genitourinary History: Dysuria, hematuria, midline cystocele, urgency, vaginal atrophy. 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, hysterectomy Musculoskeletal History: Reports: Arthritis, Back Pain, Chronic Other Musculoskeletal History: Left Medial meniscus tear, gait abnormailty, hyperextension knee injury Neurological History: Reports: CVA Other Neuro History: Radial sensory nerve injury, loss of sensation 3d 4th 5th fingers of rt hand, Lt foot numbness (pt uses foot brace), loss of coordination , poor short term memory Psychiatric History: Reports: Anxiety, Depression Endocrine/Metabolic History: Reports: Diabetes, Type II, Obesity/BMI 30+ Hematologic History: Reports: Iron Deficiency Immunologic History: Reports: Other (See Below) Other Immunologic History: IgG deficiency Oncologic (Cancer) History: Reports: Uterine Dermatologic History: Reports: None, Venous Stasis Dermatitis Other Dermatologic History: eipdermal cyst - Past Surgical History Head Surgeries/Procedures: Reports: None HEENT Surgical History: Reports: Oral Surgery Cardiovascular Surgical History: Reports: None Respiratory Surgical History: Reports: None GI Surgical History: Reports: Cholecystectomy Female Surgical History: Reports: Section, Cystectomy, Hysterectomy , Salpingo-Oophorectomy, Other (See Below) Endocrine Surgical History: Reports: None Musculoskeletal Surgical History: Reports: Shoulder Surgery, Other (See Below) Other Musculoskeletal Surgeries/Procedures:: right hand reconstructive surgery, right foot recons surgery Oncologic Surgical History: Reports: None Social & Family History - Family History Family Medical History: Noncontributory - Tobacco Use Smoking Status *Q: Former Smoker Used Tobacco, but Quit: Yes Month/Year Tobacco Last Used: 12/2014 - Caffeine Use Caffeine Use: Reports: Coffee - Recreational Drug Use Recreational Drug Use: No - Living Situation & Occupation Living situation: Reports: , with Spouse Occupation: Unemployed Review of Systems - Review of Systems Review Of Systems: See Below Constitutional: Reports: No Symptoms Eyes: Reports: No Symptoms Ears: Reports: No Symptoms Nose: Reports: No Symptoms Mouth/Throat: Reports: No Symptoms Respiratory: Reports: No Symptoms Cardiovascular: Reports: No Symptoms GI/Abdominal: Reports: No Symptoms Musculoskeletal: Reports: Shoulder Pain (left) ED EXAM, GENERAL - Physical Exam Exam: See Below Exam Limited By: No Limitations General Appearance: Alert, No Apparent Distress Ears: Normal External Exam Nose: Normal Inspection Head: Atraumatic, Normocephalic Neck: Normal Inspection Respiratory/Chest: No Respiratory Distress, Lungs Clear, Normal Breath Sounds Cardiovascular: Regular Rate, Rhythm, No Edema, No Murmur GI/Abdominal: Soft, Non-Tender, No Organomegaly, No Mass Extremities: Other (Mild left shoulder pain. Mild numbness to the forearm. Good pulses distally.) Course - Vital Signs Last Recorded V/S: Last Vital Signs Temp 98.1 F 04/17/19 17:44 Pulse 100 04/17/19 17:44 Resp 20 04/17/19 17:44 BP 126/102 H 04/17/19 17:44 Pulse Ox 98 04/17/19 17:44 - Orders/Labs/Meds Orders: Active Orders 24 hr Category Date Time Status Influenza Vaccine Charge [RC] .DISCHARGE Care 04/17/19 17:50 Active Shoulder Comp Lt [CR] Stat Exams 04/17/19 17:57 Taken Meds: Medications Discontinued Medications Generic Name Dose Route Start Last Admin Trade Name Freq PRN Reason Stop Dose Admin Influenza Virus Vaccine 1 each 04/17/19 17:50 Pharmacy To Dose - Influenza Vaccine IM 04/17/19 17:51 ONETIME ONE Influenza Virus Vaccine 60 mcg 04/17/19 18:00 Fluzone Quad 4100-0300 Syringe IM 04/17/19 18:01 .ONCE ONE - Re-Assessments/Exams Free Text/Narrative Re-Assessment/Exam: 04/17/19 18:37 I ordered an x-ray and it looks good. I will discharge her home. Departure - Departure Time of Disposition: 18:40 Disposition: Home, Self-Care 01 Condition: Good Clinical Impression: Left shoulder pain Qualifiers: Chronicity: acute Qualified Code(s): M25.512 - Pain in left shoulder - Discharge Information *PRESCRIPTION DRUG MONITORING PROGRAM REVIEWED*: Not Applicable *COPY OF PRESCRIPTION DRUG MONITORING REPORT IN PATIENT JAY JAY: Not Applicable Referrals: Cathy Cramer PA-C [Primary Care Provider] - Additional Instructions: Ice your shoulder for 15 minutes 3 times per day for 2 days. Take motrin or aleve for pain. Call [facility] Friday morning for a follow up appointment next week. Please return if you are worse. Sepsis Event Note - Evaluation Sepsis Screening Result: No Definite Risk - Focused Exam Vital Signs: Vital Signs Temp Pulse Resp BP Pulse Ox 04/17/19 17:44 98.1 F 100 20 126/102 H 98 Date Exam was Performed: 04/17/19 Time Exam was Performed: 18:34 - My Orders Last 24 Hours: My Active Orders 04/17/19 17:50 Influenza Vaccine Charge [RC] .DISCHARGE 04/17/19 17:57 Shoulder Comp Lt [CR] Stat - Assessment/Plan Last 24 Hours: My Active Orders 04/17/19 17:50 Influenza Vaccine Charge [RC] .DISCHARGE 04/17/19 17:57 Shoulder Comp Lt [CR] Stat
--- NOTE | 2019-04-17 18:44 | CR ---
Left shoulder: 3 views left shoulder were obtained. Comparison: Prior CT left shoulder study of 06/02/18. 2 screws are seen affixing previous pathologic fracture within the proximal left humerus. Sclerotic areas are noted within the left shoulder compatible with chondroid lesion which appears stable. Previous resection of the distal right clavicle is seen. No acute fracture or other abnormality is appreciated. Impression: 1. Previous surgery affixing prior fracture which appears to be healed. 2. Other findings as noted above. Nothing acute is appreciated. Diagnostic code #2 Study was dictated in [place] Standard Time
== END 2019-04-17 19:04 | disposition home or self-care (01) ==
LOC: JD.ED 17:23
DX: M25.512 Pain in left shoulder (principal); F41.9 Anxiety disorder, unspecified; F32.9 Major depressive disorder, single episode, unspecified; E11.9 Type 2 diabetes mellitus without complications; E66.9 Obesity, unspecified; E78.00 Pure hypercholesterolemia, unspecified; I10 Essential (primary) hypertension; J44.9 Chronic obstructive pulmonary disease, unspecified; K21.9 Gastro-esophageal reflux disease without esophagitis; Z88.8 Allergy status to other drugs, medicaments and biological substances; Z88.1 Allergy status to other antibiotic agents; Z88.6 Allergy status to analgesic agent; Z91.048 Other nonmedicinal substance allergy status; Z79.82 Long term (current) use of aspirin; Z79.84 Long term (current) use of oral hypoglycemic drugs; Z79.899 Other long term (current) drug therapy; Z86.73 Personal history of transient ischemic attack (TIA), and cerebral infarction without residual deficits; Z90.49 Acquired absence of other specified parts of digestive tract; Z90.710 Acquired absence of both cervix and uterus; Z87.891 Personal history of nicotine dependence; Z68.41 Body mass index [BMI] 40.0-44.9, adult
CPT/HCPCS: 73030; 90686; 99283; G0008; 99282

== ENCOUNTER 2019-07-22 11:11 | Emergency (ER) | payer MEDICARE, MEDICAID, OTHER ==
[2019-07-22] MEDS ORDERED: Sodium Chloride 0.9% 10 ML Syringe FLUSH PRN (11:21)
[2019-07-22] MEDS ORDERED: Albuterol/Ipratropium 3.0-0.5 MG/3 ML Neb Soln NEB ONE (11:22)
[2019-07-22] MEDS ORDERED: methylPREDNISolone Sodium Succinate 125 MG/2 ML SDV IVPUSH ONE (11:22)
[2019-07-22 11:28] VITALS: BP 127/95; PULSE 97
--- NOTE | 2019-07-22 11:41 | EDM.PDOC ---
ED HPI GENERAL MEDICAL PROBLEM - General Chief Complaint: Respiratory Problem Stated Complaint: SOB Time Seen by Provider: 07/22/19 11:19 Source of Information: Reports: Patient History Limitations: Reports: No Limitations - History of Present Illness INITIAL COMMENTS - FREE TEXT/NARRATIVE: The patient presents with shortness of breath. This has been going no for about a week. She also has a cough. She has no fever or chills. She did go to the COVID clinic and she found out this morning she was negative. She has a history of COPD. Her inhaler is out. She has no chest pain. She has no abdominal pain, nausea or vomiting. She does not smoke. Onset: Gradual Duration: Week(s): Severity: Moderate Improves with: Reports: None Worsens with: Reports: None Associated Symptoms: Reports: Cough, Shortness of Breath. Denies: Chest Pain, Fever/Chills, Headaches, Nausea/Vomiting - Related Data Allergies Allergy/AdvReac Type Severity Reaction Status Date / Time acetaminophen Allergy Severe Airway Verified 07/22/19 11:30 Tightness benzonatate Allergy Severe Airway Verified 07/22/19 11:30 Tightness ceftriaxone Allergy Hives Verified 04/17/19 17:47 cetirizine Allergy Hives Verified 04/17/19 17:47 house dust Allergy Other Verified 04/17/19 17:47 pollen extracts Allergy Other Verified 04/17/19 17:47 morphine AdvReac Severe Airway Verified 07/22/19 11:30 Tightness Home Meds: Home Meds Aspirin [Ecotrin EC] 325 mg PO DAILY 03/09/14 [History] Pantoprazole [ProTONIX] 40 mg PO DAILY #30 tab.cr 05/14/14 [Rx] metFORMIN [Glucophage] 500 mg PO DAILY 11/29/15 [History] SUMAtriptan [Imitrex] 50 mg PO ASDIRECTED PRN 11/01/16 [History] Gabapentin [Neurontin] 300 mg PO BEDTIME 09/09/17 [History] Meloxicam 15 mg PO DAILY 10/27/17 [History] Pramipexole Di-HCl [Mirapex] 0.25 mg PO BEDTIME 10/27/17 [History] buPROPion HCL [Wellbutrin Xl] 150 mg PO DAILY 10/27/17 [History] estradioL [Estrace 0.01% Vaginal Crm] 1 dose VAG ASDIRECTED 10/27/17 [History] traMADol [Ultram] 50 - 100 mg PO Q6H PRN 10/27/17 [History] Bethanechol Chloride [Urecholine] 10 mg PO QID #80 tablet 10/29/17 [Rx] Nitrofurantoin Monohyd/M-Cryst [Macrobid 100 mg Capsule] 100 mg PO Q12H #20 capsule 10/29/17 [Rx] traMADol [Ultram] 50 mg PO Q6H PRN #80 tablet 10/29/17 [Rx] Albuterol Sulfate 1.25 mg IH Q6H #20 ampule 07/22/19 [Rx] Albuterol [Proventil HFA] 2 puff INH Q4H PRN #1 inhaler 07/22/19 [Rx] predniSONE [Prednisone] 40 mg PO DAILY #10 tablet 07/22/19 [Rx] Past Medical History HEENT History: Reports: Allergic Rhinitis, Hard of Hearing, Impaired Vision, Other (See Below) Other HEENT History: cyst on lower lip removed, upper partial, tinnitis, tonsillitis. Cardiovascular History: Reports: High Cholesterol, Hypertension, Other (See Below) Other Cardiovascular History: CVA in 2011 Respiratory History: Reports: COPD Other Respiratory History: emphysema Gastrointestinal History: Reports: Chronic Diarrhea, GERD, Irritable Bowel Syndrome Other Gastrointestinal History: Abdominal pain, diarrhea Genitourinary History: Reports: Renal Calculus Other Genitourinary History: Dysuria, hematuria, midline cystocele, urgency, vaginal atrophy. CREATIVE TECHNOLOGIST History: Reports: Other (See Below) Other CREATIVE TECHNOLOGIST History: x2, hysterectomy Musculoskeletal History: Reports: Arthritis, Back Pain, Chronic Other Musculoskeletal History: Left Medial meniscus tear, gait abnormailty, hyperextension knee injury Neurological History: Reports: CVA Other Neuro History: Radial sensory nerve injury, loss of sensation 3d 4th 5th fingers of rt hand, Lt foot numbness (pt uses foot brace), loss of coordination , poor short term memory Psychiatric History: Reports: Anxiety, Depression Endocrine/Metabolic History: Reports: Diabetes, Type II, Obesity/BMI 30+ Hematologic History: Reports: Iron Deficiency Immunologic History: Reports: Other (See Below) Other Immunologic History: IgG deficiency Oncologic (Cancer) History: Reports: Uterine Dermatologic History: Reports: None, Venous Stasis Dermatitis Other Dermatologic History: eipdermal cyst - Past Surgical History Head Surgeries/Procedures: Reports: None HEENT Surgical History: Reports: Oral Surgery Cardiovascular Surgical History: Reports: None Respiratory Surgical History: Reports: None GI Surgical History: Reports: Cholecystectomy Female Surgical History: Reports: Section, Cystectomy, Hysterectomy , Salpingo-Oophorectomy, Other (See Below) Endocrine Surgical History: Reports: None Musculoskeletal Surgical History: Reports: Shoulder Surgery, Other (See Below) Other Musculoskeletal Surgeries/Procedures:: right hand reconstructive surgery, right foot recons surgery Oncologic Surgical History: Reports: None Social & Family History - Family History Family Medical History: Noncontributory - Caffeine Use Caffeine Use: Reports: Coffee - Living Situation & Occupation Living situation: Reports: , with Spouse Occupation: Unemployed ED ROS GENERAL - Review of Systems Review Of Systems: See Below Constitutional: Reports: No Symptoms HEENT: Reports: No Symptoms Respiratory: Reports: Shortness of Breath, Cough Cardiovascular: Reports: No Symptoms Endocrine: Reports: No Symptoms GI/Abdominal: Reports: No Symptoms : Reports: No Symptoms Musculoskeletal: Reports: No Symptoms ED EXAM, GENERAL - Physical Exam Exam: See Below Exam Limited By: No Limitations General Appearance: Alert, No Apparent Distress Ears: Normal External Exam Nose: Normal Inspection Head: Atraumatic, Normocephalic Neck: Normal Inspection Respiratory/Chest: No Respiratory Distress, Decreased Breath Sounds, Wheezing Cardiovascular: Regular Rate, Rhythm, No Edema, No Murmur GI/Abdominal: Soft, Non-Tender, No Organomegaly, No Mass Back Exam: Normal Inspection Extremities: Normal Inspection Neurological: Alert, Oriented, No Motor/Sensory Deficits EKG INTERPRETATION EKG Date: 07/22/19 Time: 11:30 Rhythm: NSR Rate (Beats/Min): 84 [place]: Normal P-Wave: Present QRS: Normal ST-T: Normal QT: Normal Course - Vital Signs Last Recorded V/S: Last Vital Signs Temp 97.5 F 07/22/19 11:21 Pulse 97 07/22/19 11:21 Resp 24 H 07/22/19 11:21 BP 127/95 H 07/22/19 11:21 Pulse Ox 95 07/22/19 11:35 - Orders/Labs/Meds Orders: Active Orders 24 hr Category Date Time Status Cardiac Monitoring [RC] . DIRECTED Care 07/22/19 11:21 Active EKG Documentation Completion [RC] STAT Care 07/22/19 11:22 Active Oxygen Therapy [RC] PRN Care 07/22/19 11:22 Active Peripheral IV Care [RC] . DIRECTED Care 07/22/19 11:22 Active RT Aerosol Therapy [RC] ASDIRECTED Care 07/22/19 11:22 Active Sodium Chloride 0.9% [Saline Flush] Med 07/22/19 11:21 Active 10 ml FLUSH ASDIRECTED PRN Peripheral IV Insertion Adult [OM.PC] Stat Oth 07/22/19 11:21 Ordered Medication Orders Sodium Chloride (Saline Flush) 10 ml FLUSH ASDIRECTED PRN PRN Reason: Keep Vein Open Last Admin: 07/22/19 11:40 Dose: 10 ml Labs: Laboratory Tests 07/22/19 07/22/19 Range/Units 11:37 11:37 WBC 9.14 (3.98-10.04) K/mm3 RBC 4.92 (3.98-5.22) M/mm3 Hgb 14.1 (11.2-15.7) gm/dl Hct 42.7 (34.1-44.9) % MCV 86.8 (79.4-94.8) fl MCH 28.7 (25.6-32.2) pg MCHC 33.0 (32.2-35.5) g/dl RDW Std Deviation 43.5 (36.4-46.3) fL Plt Count 250 (182-369) K/mm3 MPV 10.0 (9.4-12.3) fl Neut % (Auto) 60.9 (34.0-71.1) % Lymph % (Auto) 30.9 (19.3-51.7) % Fleming % (Auto) 7.0 (4.7-12.5) % Eos % (Auto) 0.7 (0.7-5.8) Baso % (Auto) 0.3 (0.1-1.2) % Neut # (Auto) 5.57 (1.56-6.13) K/mm3 Lymph # (Auto) 2.82 (1.18-3.74) K/mm3 Fleming # (Auto) 0.64 H (0.24-0.36) K/mm3 Eos # (Auto) 0.06 (0.04-0.36) K/mm3 Baso # (Auto) 0.03 (0.01-0.08) K/mm3 Sodium 138 (136-145) mEq/L Potassium 3.6 (3.5-5.1) mEq/L Chloride 102 (98-107) mEq/L Carbon Dioxide 27 (21-32) mEq/L Anion Gap 12.6 (5-15) BUN 11 (7-18) mg/dL Creatinine 0.6 (0.55-1.02) mg/dL Est Cr Clr Drug Dosing 80.88 mL/min Estimated GFR (MDRD) > 60 (>60) mL/min BUN/Creatinine Ratio 18.3 H (14-18) Glucose 113 H (74-106) mg/dL Calcium 9.7 (8.5-10.1) mg/dL Total Bilirubin 0.4 (0.2-1.0) mg/dL AST 56 H (15-37) U/L ALT 106 H (14-59) U/L Alkaline Phosphatase 96 (46-116) U/L Troponin I < 0.017 (0.00-0.056) ng/mL Total Protein 7.3 (6.4-8.2) g/dl Albumin 3.7 (3.4-5.0) g/dl Globulin 3.6 gm/dL Albumin/Globulin Ratio 1.0 (1-2) Meds: Medications Generic Name Dose Route Start Last Admin Trade Name iJmmyq PRN Reason Stop Dose Admin Sodium Chloride 10 ml 07/22/19 11:21 07/22/19 11:40 Saline Flush FLUSH 10 ml ASDIRECTED PRN Administration Keep Vein Open Discontinued Medications Generic Name Dose Route Start Last Admin Trade Name Freq PRN Reason Stop Dose Admin Albuterol/Ipratropium 3 ml 07/22/19 11:22 07/22/19 11:35 Duoneb 3.0-0.5 Mg/3 Ml NEB 07/22/19 11:23 3 ml ONETIME ONE Administration Methylprednisolone Sodium Succinate 125 mg 07/22/19 11:22 07/22/19 11:40 Solu-Medrol IVPUSH 07/22/19 11:23 125 mg ONETIME ONE Administration - Re-Assessments/Exams Free Text/Narrative Re-Assessment/Exam: 07/22/19 11:40 I ordered an IV saline lock, oxygen PRN, duoneb, Solu-medrol 125mg IV, labs, CXR and EKG. Her EKG shows a NSR with no acute changes. 07/22/19 12:43 Her CXR looks good. Her CBC looks good. Her AST was elevated at 56. Her ALT was elevated at 106. Her troponin is negative. She feels and sounds better. I will angus her on some prednisone and albuterol. Departure - Departure Time of Disposition: 12:45 Disposition: Home, Self-Care 01 Condition: Good Clinical Impression: COPD exacerbation - Discharge Information *PRESCRIPTION DRUG MONITORING PROGRAM REVIEWED*: Not Applicable *COPY OF PRESCRIPTION DRUG MONITORING REPORT IN PATIENT JAY JAY: Not Applicable Prescriptions: Albuterol [Proventil HFA] 2 puff INH Q4H PRN #1 inhaler PRN Reason: Shortness Of Breath Albuterol Sulfate 1.25 mg IH Q6H #20 ampule predniSONE [Prednisone] 40 mg PO DAILY #10 tablet Referrals: Cathy Cramer PA-C [Primary Care Provider] - 1 Week Forms: ED Department Discharge Additional Instructions: Take prednisone daily for 5 days. Use the inhaler or neb every 6 hours as needed for shortness of breath. Please return if you are worse. Sepsis Event Note - Evaluation Sepsis Screening Result: No Definite Risk - Focused Exam Vital Signs: Vital Signs Temp Pulse Resp BP Pulse Ox Pulse Ox 07/22/19 11:35 95 07/22/19 11:21 97.5 F 97 24 H 127/95 H 97 Date Exam was Performed: 07/22/19 Time Exam was Performed: 12:43 - My Orders Last 24 Hours: My Active Orders 07/22/19 11:21 Cardiac Monitoring [RC] . DIRECTED Sodium Chloride 0.9% [Saline Flush] 10 ml FLUSH ASDIRECTED PRN Peripheral IV Insertion Adult [OM.PC] Stat 07/22/19 11:22 EKG Documentation Completion [RC] STAT Oxygen Therapy [RC] PRN Peripheral IV Care [RC] . DIRECTED RT Aerosol Therapy [RC] ASDIRECTED - Assessment/Plan Last 24 Hours: My Active Orders 07/22/19 11:21 Cardiac Monitoring [RC] . DIRECTED Sodium Chloride 0.9% [Saline Flush] 10 ml FLUSH ASDIRECTED PRN Peripheral IV Insertion Adult [OM.PC] Stat 07/22/19 11:22 EKG Documentation Completion [RC] STAT Oxygen Therapy [RC] PRN Peripheral IV Care [RC] . DIRECTED RT Aerosol Therapy [RC] ASDIRECTED
--- NOTE | 2019-07-22 12:42 | CR ---
Chest: Portable view of the chest was obtained. Comparison: Prior chest x-ray of 05/09/14. Slight increased lung markings within the right lung base which appear chronic. No acute parenchymal change is seen. Heart size and mediastinum are within normal limits for portable technique. Bony structures are grossly intact. Impression: 1. Nothing acute is suspected on portable chest x-ray. Diagnostic code #2 This report was dictated in MDT
== END 2019-07-22 12:57 | disposition home or self-care (01) ==
LOC: JD.ED 11:11
DX: J44.1 Chronic obstructive pulmonary disease with (acute) exacerbation (principal); I10 Essential (primary) hypertension; K21.9 Gastro-esophageal reflux disease without esophagitis; M19.90 Unspecified osteoarthritis, unspecified site; F41.9 Anxiety disorder, unspecified; F32.9 Major depressive disorder, single episode, unspecified; E11.9 Type 2 diabetes mellitus without complications; E66.9 Obesity, unspecified; Z68.41 Body mass index [BMI] 40.0-44.9, adult; Z88.6 Allergy status to analgesic agent; Z88.1 Allergy status to other antibiotic agents; Z91.09 Other allergy status, other than to drugs and biological substances; Z88.5 Allergy status to narcotic agent; Z79.82 Long term (current) use of aspirin; Z86.73 Personal history of transient ischemic attack (TIA), and cerebral infarction without residual deficits; Z79.84 Long term (current) use of oral hypoglycemic drugs; Z79.899 Other long term (current) drug therapy; J44.9 Chronic obstructive pulmonary disease, unspecified; R06.02 Shortness of breath; Z20.828 Contact with and (suspected) exposure to other viral communicable diseases
CPT/HCPCS: 36415; 71045; 80053; 84484; 85025; 93005; 94640; 96374; 99214; 99285; J2930; U0002; 93010; 99284; J7620-GY

== ENCOUNTER 2019-08-07 22:54 | Observation (INO) | payer MEDICARE, MEDICAID ==
[2019-08-07] MEDS ORDERED: Albuterol/Ipratropium 3.0-0.5 MG/3 ML Neb Soln NEB ONE (23:21)
[2019-08-07] MEDS ORDERED: predniSONE 20 MG Tab PO STA (23:21)
--- NOTE | 2019-08-07 23:36 | EDM.PDOC ---
ED HPI GENERAL MEDICAL PROBLEM - General Chief Complaint: Respiratory Problem Stated Complaint: SOB Time Seen by Provider: 08/07/19 23:04 Source of Information: Reports: Patient History Limitations: Reports: No Limitations - History of Present Illness INITIAL COMMENTS - FREE TEXT/NARRATIVE: Ms. Piña is a pleasant 54-year-old woman with a past medical history significant for allergic rhinitis and presumed COPD and asthma, although it is not clear that she has undergone PFTs, who, medical records indicate, was seen in this ED on 07/22/2019 for shortness of breath and a dry cough for about a week , after she had run out of her albuterol. She had not had a fever, chills, or chest pain. A CBC, CMP, troponin, chest x-ray, and ECG were all unremarkable. Her symptoms improved after she was given nebs and IV Solu-Medrol. She was discharged home with prescription for prednisone and albuterol. She now returns to the ED stating that she did well for about 1 week after her last ED visit,, but since then, she has redeveloped dyspnea and a dry cough. She states that she took an albuterol neb around 19:30 tonight, and an albuterol MDI around 22:15, that she was going to bed, but then she woke up around 22:45, gasping for air. Upon arrival to the ED, the patient is found to be hemodynamically stable, tachypneic at 25 rpm, afebrile, saturating 93 to 97% on room air. Other than the patient's respiratory symptoms, she states that she chronically has watery diarrhea, otherwise, she denies recent fever, chills, sore throat, ear pain, nasal or sinus congestion, chest pain, palpitations, nausea, vomiting , constipation, abdominal pain, urinary symptoms, recent weight gain or weight loss, recent bloody bowel movements or black bowel movements, recent joint aches , headaches, or rashes. The patient's PCP is ALEJANDRO Bourne. The patient has not seen Ms. Cramer since March. Treatments TISSUE SPECIALIST: Reports: Other (see below) Other Treatments TISSUE SPECIALIST: albuterol Inhaler,nebulizer Left Upper Chest Pain Score (Numeric/FACES): 8 - Related Data Allergies Allergy/AdvReac Type Severity Reaction Status Date / Time acetaminophen Allergy Severe Airway Verified 08/07/19 23:07 Tightness benzonatate Allergy Severe Airway Verified 08/07/19 23:07 Tightness ceftriaxone Allergy Severe Hives Verified 08/07/19 23:07 cetirizine Allergy Severe Hives Verified 08/07/19 23:07 house dust Allergy Severe Other Verified 08/07/19 23:07 pollen extracts Allergy Severe Other Verified 08/07/19 23:07 morphine AdvReac Severe Airway Verified 08/07/19 23:07 Tightness Home Meds: Home Meds Aspirin [Ecotrin EC] 325 mg PO DAILY 03/09/14 [History] Pantoprazole [ProTONIX] 40 mg PO DAILY #30 tab.cr 05/14/14 [Rx] metFORMIN [Glucophage] 500 mg PO BID 11/29/15 [History] SUMAtriptan [Imitrex] 50 mg PO ASDIRECTED PRN 11/01/16 [History] Gabapentin [Neurontin] 300 mg PO BEDTIME 09/09/17 [History] Meloxicam 15 mg PO DAILY 10/27/17 [History] Pramipexole Di-HCl [Mirapex] 0.25 mg PO BEDTIME 10/27/17 [History] Albuterol Sulfate 1.25 mg IH Q6H #20 ampule 07/22/19 [Rx] Albuterol [Proventil HFA] 2 puff INH Q4H PRN #1 inhaler 07/22/19 [Rx] lisinopriL [Lisinopril] 10 mg PO DAILY 08/07/19 [History] Past Medical History HEENT History: Reports: Allergic Rhinitis, Hard of Hearing, Impaired Vision Cardiovascular History: Reports: High Cholesterol, Hypertension Respiratory History: Reports: Asthma (presumed), COPD (presumed) Gastrointestinal History: Reports: GERD, Irritable Bowel Syndrome Genitourinary History: Reports: Renal Calculus Musculoskeletal History: Reports: Arthritis Neurological History: Reports: CVA (2011 with residual left hemiparesis) Psychiatric History: Reports: Anxiety, Depression Endocrine/Metabolic History: Reports: Diabetes, Type II, Obesity/BMI 30+ Hematologic History: Reports: Iron Deficiency Oncologic (Cancer) History: Reports: Uterine Dermatologic History: Reports: Venous Stasis Dermatitis - Past Surgical History GI Surgical History: Reports: Cholecystectomy Female Surgical History: Reports: Section (x 2), Hysterectomy, Tubal Ligation Social & Family History - Family History Family Medical History: Noncontributory - Tobacco Use Smoking Status *Q: Former Smoker Years of Tobacco use: 38 Packs/Tins Daily: 4 Month/Year Tobacco Last Used: Quit Dec 2014 - Caffeine Use Caffeine Use: Reports: Coffee - Alcohol Use Alcohol Use History: No - Recreational Drug Use Recreational Drug Use: Yes Drug Use in Last 12 Months: No Recreational Drug Type: Reports: Cocaine (last snorted 1991), Marijuana/Hashish (last smoked many years ago) - Living Situation & Occupation Living situation: Reports: , with Spouse Occupation: Unemployed ED ROS GENERAL - Review of Systems Review Of Systems: Comprehensive ROS is negative, except as noted in HPI. GI/Abdominal: Reports: Diarrhea (chronic) ED EXAM, GENERAL - Physical Exam Exam: See Below Exam Limited By: No Limitations General Appearance: Alert, WD/WN, Anxious, Mild Distress (tachypneic) Eye Exam: Bilateral Eye: EOMI, Normal Inspection Ears: Normal External Exam, Hearing Grossly Normal Nose: Normal Inspection Throat/Mouth: Normal Inspection, Normal Lips, Normal Voice, No Airway Compromise Head: Atraumatic, Normocephalic Neck: Normal Inspection, Full Range of Motion Respiratory/Chest: No Respiratory Distress, No Accessory Muscle Use, Decreased Breath Sounds, Wheezing (expiratory, throughout), Prolonged Expiration (slight) . No: Crackles, Rhonchi, Stridor Cardiovascular: Normal Peripheral Pulses, No Gallop, No JVD, No Murmur, No Rub, Tachycardia (regular) Peripheral Pulses: 4+: Radial (L), Radial (R) GI/Abdominal: Normal Bowel Sounds, Soft, Non-Tender, No Organomegaly, No Distention, No Abnormal Bruit, No Mass (Female) Exam: Deferred Rectal (Female) Exam: Deferred Back Exam: Normal Inspection, Full Range of Motion, NT Extremities: Normal Inspection, Normal Range of Motion, No Pedal Edema, Normal Capillary Refill Neurological: Alert, Oriented, Normal Cognition, No Motor/Sensory Deficits Psychiatric: Anxious Skin Exam: Warm, Dry, Intact, Normal Color, No Rash EKG INTERPRETATION EKG Date: 08/07/19 Time: 23:52 Rhythm: NSR Rate (Beats/Min): 74 Glover: Normal P-Wave: Present QRS: Normal (Early transition) ST-T: Normal QT: Normal Comparison: No Change (07/22/2019) Course - Vital Signs Last Recorded V/S: Last Vital Signs Temp 35.8 C L 08/07/19 23:00 Pulse 88 08/07/19 23:00 Resp 25 H 08/07/19 23:00 BP 136/108 H 08/07/19 23:00 Pulse Ox 100 08/07/19 23:31 - Orders/Labs/Meds Orders: Active Orders 24 hr Category Date Time Status EKG Documentation Completion [RC] STAT Care 08/07/19 23:22 Active RT Aerosol Therapy [RC] ASDIRECTED Care 08/07/19 23:21 Active Chest 2V [CR] Stat Exams 08/07/19 23:22 Taken CULTURE BLOOD [BC] Stat Lab 08/07/19 23:40 Received CULTURE BLOOD [BC] Stat Lab 08/07/19 23:50 Received Blood Culture x2 Reflex Set [OM.PC] Stat Oth 08/07/19 23:22 Ordered Labs: Laboratory Tests 08/07/19 08/07/19 08/07/19 Range/Units 23:00 23:00 23:00 WBC 11.02 H (3.98-10.04) K/mm3 RBC 4.68 (3.98-5.22) M/mm3 Hgb 13.0 (11.2-15.7) gm/dl Hct 41.0 (34.1-44.9) % MCV 87.6 (79.4-94.8) fl MCH 27.8 (25.6-32.2) pg MCHC 31.7 L (32.2-35.5) g/dl RDW Std Deviation 43.5 (36.4-46.3) fL Plt Count 318 (182-369) K/mm3 MPV 9.9 (9.4-12.3) fl Neutrophils % (Manual) 47 (40-60) % Band Neutrophils % 2 (0-10) % Lymphocytes % (Manual) 40 (20-40) % Atypical Lymphs % 0 % Monocytes % (Manual) 8 (2-10) % Eosinophils % (Manual) 2 (0.7-5.8) % Basophils % (Manual) 1 (0.1-1.2) Platelet Estimate Adequate Plt Morphology Comment Normal Hypochromasia 1+ slight Ovalocytes 1+ slight RBC Morph Comment Not Reportable PT 9.9 (9.7-12.0) SECONDS INR 0.93 APTT 25 (22-31) SECONDS D-Dimer, Quantitative 0.30 (0.19-0.50) mg/L Puncture Site ABG pH (7.35-7.45) ABG pCO2 (35.0-45.0) mmHg ABG pO2 (80.0-100.0) mmHg ABG HCO3 (22.0-26.0) meq/L ABG O2 Saturation (96.0-97.0) % ABG Base Excess (-2-2.0) Shawn Test A-a Gradient mmHg O2 Delivery Device FiO2 (21.00-100.00) % Sodium 140 (136-145) mEq/L Potassium 4.3 (3.5-5.1) mEq/L Chloride 106 (98-107) mEq/L Carbon Dioxide 24 (21-32) mEq/L Anion Gap 14.3 (5-15) BUN 15 (7-18) mg/dL Creatinine 0.7 (0.55-1.02) mg/dL Est Cr Clr Drug Dosing 69.33 mL/min Estimated GFR (MDRD) > 60 (>60) mL/min BUN/Creatinine Ratio 21.4 H (14-18) Glucose 138 H (74-106) mg/dL Lactic Acid (0.4-2.0) mmol/L Calcium 9.4 (8.5-10.1) mg/dL Total Bilirubin 0.5 (0.2-1.0) mg/dL AST 27 (15-37) U/L ALT 58 (14-59) U/L Alkaline Phosphatase 98 (46-116) U/L Troponin I < 0.017 (0.00-0.056) ng/mL NT-Pro-B Natriuret Pep (0-125) pg/mL Total Protein 6.9 (6.4-8.2) g/dl Albumin 3.6 (3.4-5.0) g/dl Globulin 3.3 gm/dL Albumin/Globulin Ratio 1.1 (1-2) 08/07/19 08/07/19 08/07/19 Range/Units 23:00 23:40 23:50 WBC (3.98-10.04) K/mm3 RBC (3.98-5.22) M/mm3 Hgb (11.2-15.7) gm/dl Hct (34.1-44.9) % MCV (79.4-94.8) fl MCH (25.6-32.2) pg MCHC (32.2-35.5) g/dl RDW Std Deviation (36.4-46.3) fL Plt Count (182-369) K/mm3 MPV (9.4-12.3) fl Neutrophils % (Manual) (40-60) % Band Neutrophils % (0-10) % Lymphocytes % (Manual) (20-40) % Atypical Lymphs % % Monocytes % (Manual) (2-10) % Eosinophils % (Manual) (0.7-5.8) % Basophils % (Manual) (0.1-1.2) Platelet Estimate Plt Morphology Comment Hypochromasia Ovalocytes RBC Morph Comment PT (9.7-12.0) SECONDS INR APTT (22-31) SECONDS D-Dimer, Quantitative (0.19-0.50) mg/L Puncture Site Lt radial ABG pH 7.59 H (7.35-7.45) ABG pCO2 19.1 L* (35.0-45.0) mmHg ABG pO2 81.0 (80.0-100.0) mmHg ABG HCO3 18.3 L (22.0-26.0) meq/L ABG O2 Saturation 98.4 H (96.0-97.0) % ABG Base Excess -1.6 (-2-2.0) Hsawn Test Positive A-a Gradient 45 mmHg O2 Delivery Device Room air FiO2 21.00 (21.00-100.00) % Sodium (136-145) mEq/L Potassium (3.5-5.1) mEq/L Chloride (98-107) mEq/L Carbon Dioxide (21-32) mEq/L Anion Gap (5-15) BUN (7-18) mg/dL Creatinine (0.55-1.02) mg/dL Est Cr Clr Drug Dosing mL/min Estimated GFR (MDRD) (>60) mL/min BUN/Creatinine Ratio (14-18) Glucose (74-106) mg/dL Lactic Acid 2.5 H* (0.4-2.0) mmol/L Calcium (8.5-10.1) mg/dL Total Bilirubin (0.2-1.0) mg/dL AST (15-37) U/L ALT (14-59) U/L Alkaline Phosphatase (46-116) U/L Troponin I (0.00-0.056) ng/mL NT-Pro-B Natriuret Pep 8 (0-125) pg/mL Total Protein (6.4-8.2) g/dl Albumin (3.4-5.0) g/dl Globulin gm/dL Albumin/Globulin Ratio (1-2) Meds: Medications Discontinued Medications Generic Name Dose Route Start Last Admin Trade Name Freq PRN Reason Stop Dose Admin Albuterol/Ipratropium 3 ml 08/07/19 23:21 08/07/19 23:29 Duoneb 3.0-0.5 Mg/3 Ml NEB 08/07/19 23:22 3 ml ONETIME ONE Administration Lorazepam 1 mg 08/08/19 00:50 Ativan IVPUSH 08/08/19 00:51 ONETIME STA Prednisone 60 mg 08/07/19 23:21 08/08/19 00:02 Prednisone PO 08/07/19 23:22 60 mg ONETIME STA Administration - Re-Assessments/Exams Free Text/Narrative Re-Assessment/Exam: 08/07/19 23:25 As above, the patient was seen in this ED on 07/22/2023 shortness of breath and a cough. Her work-up was unremarkable, and her symptoms improved after Solu- Medrol and nebs. She was discharged with prescriptions for prednisone and albuterol. She states that she did well for about a week, but then has progressively been getting worsening shortness of breath and cough, which culminated tonight. On examination, she does have expiratory wheezing throughout her lung strange, consistent with a COPD exacerbation. I have ordered a work-up that includes blood work, an ABG, 2 sets of blood cultures, a chest x-ray, and an ECG. In the meantime, the patient will be given a DuoNeb and oral prednisone. 08/07/19 23:54 The patient's ABG represents a partially compensated primary respiratory alkalosis, or an [id number] primary respiratory alkalosis, or a mixed acute respiratory alkalosis with a small metabolic acidosis. 08/08/19 00:30 Two-view chest radiograph appears to be grossly normal. The cardiac silhouette is within normal limits. No pulmonary vascular congestion. No pleural effusions. No focal infiltrate. No pneumothorax. Left shoulder surgery hardware noted. Formal read per the Radiologist pending. The patient's CBC is remarkable for WBC count mildly elevated at 11.02, but with only 2% bandemia, and the remainder of her CBC being unremarkable. Her CMP is unremarkable. Her troponin is undetectably low. Her BNP is within normal limits at 8. Her lactic acid is mildly elevated at 2.5. Her D-dimer is within normal limits at 0.30. Her coags are within normal limits. 08/08/19 00:45 Test results discussed with the patient. I explained to the patient that her ABG indicates that she is not suffering from a COPD exacerbation, rather, she is actually hyperventilating. I explained that albuterol is not indicated in this situation, since it will only tend to exacerbate hyperventilation. I am recommending instead that we treat her with a dose of an anxiolytic, such as Ativan, then place her into observation to see how she does overnight. She is agreeable. 08/08/19 00:[address] Martinez at 00:45. He accepted the patient for placement into observation, and agreed with my plan. He will look to see if he can arrange for PFTs to be done during her stay. Departure - Departure Time of Disposition: 00:48 Disposition: Refer to Observation Condition: Good Clinical Impression: Hyperventilation - Discharge Information *PRESCRIPTION DRUG MONITORING PROGRAM REVIEWED*: Not Applicable *COPY OF PRESCRIPTION DRUG MONITORING REPORT IN PATIENT JAY JAY: Not Applicable Referrals: Cathy Cramer PA-C [Primary Care Provider] - Forms: ED Department Discharge Sepsis Event Note - Evaluation Sepsis Screening Result: No Definite Risk - Focused Exam Vital Signs: Vital Signs Temp Pulse Resp BP Pulse Ox Pulse Ox 08/07/19 23:31 100 08/07/19 23:00 35.8 C L 88 25 H 136/108 H 93 L Date Exam was Performed: 08/08/19 Time Exam was Performed: 00:53 - My Orders Last 24 Hours: My Active Orders 08/07/19 23:21 RT Aerosol Therapy [RC] ASDIRECTED 08/07/19 23:22 EKG Documentation Completion [RC] STAT Chest 2V [CR] Stat Blood Culture x2 Reflex Set [OM.PC] Stat 08/07/19 23:40 CULTURE BLOOD [BC] Stat 08/07/19 23:50 CULTURE BLOOD [BC] Stat - Assessment/Plan Last 24 Hours: My Active Orders 08/07/19 23:21 RT Aerosol Therapy [RC] ASDIRECTED 08/07/19 23:22 EKG Documentation Completion [RC] STAT Chest 2V [CR] Stat Blood Culture x2 Reflex Set [OM.PC] Stat 08/07/19 23:40 CULTURE BLOOD [BC] Stat 08/07/19 23:50 CULTURE BLOOD [BC] Stat
[2019-08-08] MEDS ORDERED: LORazepam 2 MG/ML SDV IVPUSH STA (00:50)
[2019-08-08] MEDS ORDERED: Ondansetron 4 MG/2 ML SDV IV PRN (02:31)
[2019-08-08] MEDS ORDERED: Lactated Ringers 500 ML IV ONE ×2 (02:31→06:04)
[2019-08-08] MEDS ORDERED: LORazepam 2 MG/ML SDV IV PRN (02:31)
[2019-08-08] MEDS ORDERED: Ibuprofen 200 MG Tab PO PRN (02:35)
[2019-08-08] MEDS ORDERED: 50% Dextrose in Water 50 ML Syringe IVPUSH PRN (02:40)
[2019-08-08] MEDS ORDERED: Lactated Ringers 1,000 ML IV SCH (02:45)
[2019-08-08] MEDS: Ipratropium 0.02% 0.5 MG/2.5 ML Neb Soln NEB SCH ×4 (03:18→21:05)
[2019-08-08] MEDS ORDERED: Magnesium Sulfate/Water 4 GM in Premix Bag 1 BAG IV ONE (07:30)
[2019-08-08] MEDS ORDERED: Ibuprofen 400 MG Tab PO PRN (08:41)
[2019-08-08] MEDS ORDERED: Lisinopril 10 MG Tab **PTOM PO SCH (09:00)
[2019-08-08] MEDS ORDERED: Pantoprazole 40 MG Tab.CR **PTOM PO SCH ×2 (09:00→21:00)
[2019-08-08] MEDS: Enoxaparin 40 MG/0.4 ML Syringe SUBCUT SCH (09:10)
[2019-08-08] MEDS: Doxycycline 100 MG Cap PO SCH ×2 (09:10→21:15)
[2019-08-08] MEDS: Aspirin 325 MG Tab.EC PO SCH (09:10)
[2019-08-08] MEDS: Insulin Lispro 100 Units/ML 3 ML Vial SUBCUT SCH ×4 (09:11→23:15)
--- NOTE | 2019-08-08 09:13 | PCM.HP.2 ---
H&P History of Present Illness - General Date of Service: 08/08/19 Admit Problem/Dx: Admission Diagnosis/Problem Admission Diagnosis/Problem Hyperventilation - History of Present Illness Initial Comments - Free Text/Narative: 54-year-old patient with history of COPD, asthma, allergic rhinitis, diabetes on metformin, anxiety and depression, irritable bowel syndrome, hypertension, and hyperlipidemia presents to the emergency department after waking up gasping for air. Patient states for the last 3 to 4 weeks she has felt congested and had a cough. She ran out of albuterol and she went to her primary care for COVID testing which was negative. She refilled her albuterol and over the last 2 weeks she is grown increasingly hoarse, developed a dry cough, and then yesterday became short of breath especially between coughing fits. Last night she took a 35-minute nap and woke up gasping and having difficulty catching her breath. She took 2 albuterol nebulizers within 3 hours and came into the emergency department. In the emergency department she was found to be tachypneic with a respiratory rate of 25, afebrile, and saturating 93 to 97% on room air. Patient also states that she has chronic watery diarrhea. She denies any fever, chills, chest pain, palpitations, nausea or vomiting. No bloody stools or black tarry stools. In the emergency department blood work showed a BC of 11.02, hemoglobin 13.0, platelets 318, D-dimer 0.30, electrolytes and renal function normal, troponin less than 0.017, normal liver enzymes, proBNP of 8, lactic acid elevated at 2.5. Chest x-ray was negative for infiltrate, effusions, or vascular congestion. ABG was significant for pH of 7.59, PCO2 of 19.1, PO2 of 81 on room air, bicarb of 18.3. This was consistent with hyperventilation. She received another albuterol/ipratropium bromide nebulizer. Prednisone 60 mg p.o. She then received a Lorazepam 1 mg IV push to help with anxiety and transferred to the floor in observation. Repeat lactic acid this morning was elevated at 2.7. Patient had received 500 mL bolus of LR and 125 mL an hour starting around 0300 hrs. Left Upper Chest Pain Score (Numeric/FACES): 8 - Related Data Allergies/Adverse Reactions: Allergies Allergy/AdvReac Type Severity Reaction Status Date / Time acetaminophen Allergy Severe Airway Verified 08/07/19 23:07 Tightness benzonatate Allergy Severe Airway Verified 08/07/19 23:07 Tightness ceftriaxone Allergy Severe Hives Verified 08/07/19 23:07 cetirizine Allergy Severe Hives Verified 08/07/19 23:07 house dust Allergy Severe Other Verified 08/07/19 23:07 pollen extracts Allergy Severe Other Verified 08/07/19 23:07 morphine AdvReac Severe Airway Verified 08/07/19 23:07 Tightness Home Medications: Home Meds Aspirin [Ecotrin EC] 325 mg PO DAILY 03/09/14 [History] Pantoprazole [ProTONIX] 40 mg PO DAILY #30 tab.cr 05/14/14 [Rx] metFORMIN [Glucophage] 1,000 mg PO BEDTIME 11/29/15 [History] SUMAtriptan [Imitrex] 50 mg PO ASDIRECTED PRN 11/01/16 [History] Gabapentin [Neurontin] 300 mg PO BEDTIME 09/09/17 [History] Meloxicam 15 mg PO BEDTIME 10/27/17 [History] Pramipexole Di-HCl [Mirapex] 0.25 mg PO BEDTIME 10/27/17 [History] Albuterol Sulfate 1.25 mg IH Q6H #20 ampule 07/22/19 [Rx] Albuterol [Proventil HFA] 2 puff INH Q4H PRN #1 inhaler 07/22/19 [Rx] lisinopriL [Lisinopril] 10 mg PO DAILY 08/07/19 [History] Ibuprofen 400 mg PO Q4H PRN 08/08/19 [History] Naproxen 250 mg PO Q12HR PRN 08/08/19 [History] metFORMIN [Glucophage] 500 mg PO DAILY 08/08/19 [History] Past Medical History HEENT History: Reports: Allergic Rhinitis, Hard of Hearing, Impaired Vision, Other (See Below) Other HEENT History: Has left hearing aide, upper partial Cardiovascular History: Reports: High Cholesterol, Hypertension Other Cardiovascular History: CVA in 2011 Respiratory History: Reports: Asthma, COPD, Other (See Below) Other Respiratory History: Emphysema Gastrointestinal History: Reports: Chronic Diarrhea, GERD, Irritable Bowel Syndrome Other Gastrointestinal History: Abdominal pain, diarrhea Genitourinary History: Reports: Renal Calculus, UTI, Recurrent, Other (See Below ) Other Genitourinary History: Feet tingle on occasion 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 (See Below) Other OB/BYN History: x2, hysterectomy Musculoskeletal History: Reports: Arthritis, Back Pain, Chronic Other Musculoskeletal History: Left Medial meniscus tear, gait abnormailty, hyperextension knee injury Neurological History: Reports: CVA, Migraines, TIA, Vertigo Other Neuro History: Radial sensory nerve injury, loss of sensation 3d 4th 5th fingers of rt hand, Lt foot numbness (pt uses foot brace), loss of coordination , poor short term memory Psychiatric History: Reports: Anxiety, Depression Endocrine/Metabolic History: Reports: Diabetes, Type II, Obesity/BMI 30+ Hematologic History: Reports: Iron Deficiency Immunologic History: Reports: Other (See Below) Other Immunologic History: IgG deficiency Oncologic (Cancer) History: Reports: Uterine Dermatologic History: Reports: Venous Stasis Dermatitis, Other (See Below) Other Dermatologic History: Blisters easily when in sun - Infectious Disease History Infectious Disease History: Reports: Chicken Pox, Influenza, Measles - Past Surgical History Head Surgeries/Procedures: Reports: None HEENT Surgical History: Reports: Other (See Below) Other HEENT Surgeries/Procedures: Cysts to lower lip removed Cardiovascular Surgical History: Reports: None Respiratory Surgical History: Reports: None GI Surgical History: Reports: Cholecystectomy Female Surgical History: Reports: Section, Hysterectomy, Tubal Ligation, Other (See Below) Other Female Surgeries/Procedures: Dropped bladder qwith surgical mesh Endocrine Surgical History: Reports: None Neurological Surgical History: Reports: None Musculoskeletal Surgical History: Reports: None Oncologic Surgical History: Reports: Other (See Below) Other Oncologic Surgeries/Procedures: Hysterectomy for uterine cancer Dermatological Surgical History: Reports: None Social & Family History - Family History Family Medical History: Noncontributory - Tobacco Use Smoking Status *Q: Former Smoker Years of Tobacco use: 38 Packs/Tins Daily: 4 Used Tobacco, but Quit: Yes Month/Year Tobacco Last Used: 2014 Second Hand Smoke Exposure: Yes - Caffeine Use Caffeine Use: Reports: Coffee Caffeine Use Comment: 10 cups per day - Recreational Drug Use Recreational Drug Use: No Drug Use in Last 12 Months: No Recreational Drug Type: Reports: Cocaine, Marijuana/Hashish Recreational Drug Last Use: many years ago - Living Situation & Occupation Living situation: Reports: , with Spouse Occupation: Unemployed H&P Review of Systems - Review of Systems: Review Of Systems: Comprehensive ROS is negative, except as noted in HPI. Exam - Exam Exam: See Below - Vital Signs Vital Signs: Last Vital Signs Temp 98.1 F 08/08/19 04:36 Pulse 94 08/08/19 04:36 Resp 22 H 08/08/19 04:36 BP 136/72 08/08/19 04:36 Pulse Ox 96 08/08/19 08:43 Weight: 223 lb 6.4 oz - Exam Quality Assessment: Supplemental Oxygen General: Alert, Oriented, 4 HEENT: Conjunctiva Clear, Hearing Intact, Mucosa Moist & [place] Neck: Supple, Trachea Midline, 2 Lungs: Clear to Auscultation, Normal Respiratory Effort, Decreased Breath Sounds. No: Wheezing Cardiovascular: Regular Rhythm, Tachycardia GI/Abdominal Exam: Normal Bowel Sounds, Soft, Non-Tender, No Organomegaly, No Distention, No Abnormal Bruit, No Mass Back Exam: Normal Inspection, Full Range of Motion, NT Extremities: Normal Inspection, Normal Range of Motion, Non-Tender, No Pedal Edema, Normal Capillary Refill Skin: Warm, Dry, Intact Neurological: Cranial Nerves Intact Neuro Extensive - Mental Status: Alert, Oriented x3, Normal Mood/Affect, Normal Cognition, Memory Intact Neuro Extensive - Motor, Sensory, Reflexes: CN II-XII Intact Psychiatric: Alert, Normal Affect, Normal Mood - Patient Data Lab Results Last 24 hrs: Laboratory Results - last 24 hr 08/07/19 08/07/19 08/07/19 Range/Units 23:00 23:00 23:00 WBC 11.02 H (3.98-10.04) K/mm3 RBC 4.68 (3.98-5.22) M/mm3 Hgb 13.0 (11.2-15.7) gm/dl Hct 41.0 (34.1-44.9) % MCV 87.6 (79.4-94.8) fl MCH 27.8 (25.6-32.2) pg MCHC 31.7 L (32.2-35.5) g/dl RDW Std Deviation 43.5 (36.4-46.3) fL Plt Count 318 (182-369) K/mm3 MPV 9.9 (9.4-12.3) fl Neut % (Auto) (34.0-71.1) % Lymph % (Auto) (19.3-51.7) % [place] % (Auto) (4.7-12.5) % Eos % (Auto) (0.7-5.8) Baso % (Auto) (0.1-1.2) % Neut # (Auto) (1.56-6.13) K/mm3 Lymph # (Auto) (1.18-3.74) K/mm3 [place] # (Auto) (0.24-0.36) K/mm3 Eos # (Auto) (0.04-0.36) K/mm3 Baso # (Auto) (0.01-0.08) K/mm3 Neutrophils % (Manual) 47 (40-60) % Band Neutrophils % 2 (0-10) % Lymphocytes % (Manual) 40 (20-40) % Atypical Lymphs % 0 % Monocytes % (Manual) 8 (2-10) % Eosinophils % (Manual) 2 (0.7-5.8) % Basophils % (Manual) 1 (0.1-1.2) Platelet Estimate Adequate Plt Morphology Comment Normal Hypochromasia 1+ slight Ovalocytes 1+ slight RBC Morph Comment Not Reportable PT 9.9 (9.7-12.0) SECONDS INR 0.93 APTT 25 (22-31) SECONDS D-Dimer, Quantitative 0.30 (0.19-0.50) mg/L Puncture Site ABG pH (7.35-7.45) ABG pCO2 (35.0-45.0) mmHg ABG pO2 (80.0-100.0) mmHg ABG HCO3 (22.0-26.0) meq/L ABG O2 Saturation (96.0-97.0) % ABG Base Excess (-2-2.0) Shawn Test A-a Gradient mmHg O2 Delivery Device Oxygen Flow Rate FiO2 (21.00-100.00) % Sodium 140 (136-145) mEq/L Potassium 4.3 (3.5-5.1) mEq/L Chloride 106 (98-107) mEq/L Carbon Dioxide 24 (21-32) mEq/L Anion Gap 14.3 (5-15) BUN 15 (7-18) mg/dL Creatinine 0.7 (0.55-1.02) mg/dL Est Cr Clr Drug Dosing 69.33 mL/min Estimated GFR (MDRD) > 60 (>60) mL/min BUN/Creatinine Ratio 21.4 H (14-18) Glucose 138 H (74-106) mg/dL POC Glucose (70-105) mg/dL Lactic Acid (0.4-2.0) mmol/L Calcium 9.4 (8.5-10.1) mg/dL Magnesium (1.8-2.4) mg/dl Total Bilirubin 0.5 (0.2-1.0) mg/dL AST 27 (15-37) U/L ALT 58 (14-59) U/L Alkaline Phosphatase 98 (46-116) U/L Troponin I < 0.017 (0.00-0.056) ng/mL NT-Pro-B Natriuret Pep (0-125) pg/mL Total Protein 6.9 (6.4-8.2) g/dl Albumin 3.6 (3.4-5.0) g/dl Globulin 3.3 gm/dL Albumin/Globulin Ratio 1.1 (1-2) Urine Color (Yellow) Urine Appearance (Clear) Urine pH (5.0-8.0) Ur Specific [place] (1.005-1.030) Urine Protein (Negative) Urine Glucose (UA) (Negative) Urine Ketones (Negative) Urine Occult Blood (Negative) Urine Nitrite (Negative) Urine Bilirubin (Negative) Urine Urobilinogen (0.2-1.0) Ur Leukocyte Esterase (Negative) Urine RBC (0-5) /hpf Urine WBC (0-5) /hpf Ur Epithelial Cells (0-5) /hpf Urine Bacteria (FEW) /hpf Urine Mucus (FEW) /hpf Urine Opiates Screen (VHMWQU=660) Ur Buprenorphine Scrn (CUTOFF=10) Ur Oxycodone Screen (PVJ4JX=185) Urine Methadone Screen (IXJPLT=551) Ur Propoxyphene Screen (IJTCLU=982) Ur Barbiturates Screen (OIITVI=163) Ur Tricyclics Screen (RCCHNI=063) Ur Phencyclidine Scrn (CUTOFF=25) Ur Amphetamine Screen (HQLLRX=690) U Methamphetamines Scrn (IVOTUW=916) U Benzodiazepines Scrn (CQAVBI=212) U Cocaine Metab Screen (TXSCBL=492) U Marijuana (THC) Screen (CUTOFF=50) Ethyl Alcohol (0.00) gm% 08/07/19 08/07/19 08/07/19 Range/Units 23:00 23:40 23:50 WBC (3.98-10.04) K/mm3 RBC (3.98-5.22) M/mm3 Hgb (11.2-15.7) gm/dl Hct (34.1-44.9) % MCV (79.4-94.8) fl MCH (25.6-32.2) pg MCHC (32.2-35.5) g/dl RDW Std Deviation (36.4-46.3) fL Plt Count (182-369) K/mm3 MPV (9.4-12.3) fl Neut % (Auto) (34.0-71.1) % Lymph % (Auto) (19.3-51.7) % [place] % (Auto) (4.7-12.5) % Eos % (Auto) (0.7-5.8) Baso % (Auto) (0.1-1.2) % Neut # (Auto) (1.56-6.13) K/mm3 Lymph # (Auto) (1.18-3.74) K/mm3 [place] # (Auto) (0.24-0.36) K/mm3 Eos # (Auto) (0.04-0.36) K/mm3 Baso # (Auto) (0.01-0.08) K/mm3 Neutrophils % (Manual) (40-60) % Band Neutrophils % (0-10) % Lymphocytes % (Manual) (20-40) % Atypical Lymphs % % Monocytes % (Manual) (2-10) % Eosinophils % (Manual) (0.7-5.8) % Basophils % (Manual) (0.1-1.2) Platelet Estimate Plt Morphology Comment Hypochromasia Ovalocytes RBC Morph Comment PT (9.7-12.0) SECONDS INR APTT (22-31) SECONDS D-Dimer, Quantitative (0.19-0.50) mg/L Puncture Site Lt radial ABG pH 7.59 H (7.35-7.45) ABG pCO2 19.1 L* (35.0-45.0) mmHg ABG pO2 81.0 (80.0-100.0) mmHg ABG HCO3 18.3 L (22.0-26.0) meq/L ABG O2 Saturation 98.4 H (96.0-97.0) % ABG Base Excess -1.6 (-2-2.0) Shawn Test Positive A-a Gradient 45 mmHg O2 Delivery Device Room air Oxygen Flow Rate FiO2 21.00 (21.00-100.00) % Sodium (136-145) mEq/L Potassium (3.5-5.1) mEq/L Chloride (98-107) mEq/L Carbon Dioxide (21-32) mEq/L Anion Gap (5-15) BUN (7-18) mg/dL Creatinine (0.55-1.02) mg/dL Est Cr Clr Drug Dosing mL/min Estimated GFR (MDRD) (>60) mL/min BUN/Creatinine Ratio (14-18) Glucose (74-106) mg/dL POC Glucose (70-105) mg/dL Lactic Acid 2.5 H* (0.4-2.0) mmol/L Calcium (8.5-10.1) mg/dL Magnesium (1.8-2.4) mg/dl Total Bilirubin (0.2-1.0) mg/dL AST (15-37) U/L ALT (14-59) U/L Alkaline Phosphatase (46-116) U/L Troponin I (0.00-0.056) ng/mL NT-Pro-B Natriuret Pep 8 (0-125) pg/mL Total Protein (6.4-8.2) g/dl Albumin (3.4-5.0) g/dl Globulin gm/dL Albumin/Globulin Ratio (1-2) Urine Color (Yellow) Urine Appearance (Clear) Urine pH (5.0-8.0) Ur Specific [place] (1.005-1.030) Urine Protein (Negative) Urine Glucose (UA) (Negative) Urine Ketones (Negative) Urine Occult Blood (Negative) Urine Nitrite (Negative) Urine Bilirubin (Negative) Urine Urobilinogen (0.2-1.0) Ur Leukocyte Esterase (Negative) Urine RBC (0-5) /hpf Urine WBC (0-5) /hpf Ur Epithelial Cells (0-5) /hpf Urine Bacteria (FEW) /hpf Urine Mucus (FEW) /hpf Urine Opiates Screen (DOTFXB=414) Ur Buprenorphine Scrn (CUTOFF=10) Ur Oxycodone Screen (LTE4ZV=631) Urine Methadone Screen (SLIQEN=090) Ur Propoxyphene Screen (YLABFJ=426) Ur Barbiturates Screen (WFLKBA=436) Ur Tricyclics Screen (MVIWME=438) Ur Phencyclidine Scrn (CUTOFF=25) Ur Amphetamine Screen (CRXJZU=221) U Methamphetamines Scrn (QEUJCB=587) U Benzodiazepines Scrn (HQYHVY=020) U Cocaine Metab Screen (SOVKQZ=162) U Marijuana (THC) Screen (CUTOFF=50) Ethyl Alcohol (0.00) gm% 08/08/19 08/08/19 08/08/19 Range/Units 04:57 05:05 06:10 WBC (3.98-10.04) K/mm3 RBC (3.98-5.22) M/mm3 Hgb (11.2-15.7) gm/dl Hct (34.1-44.9) % MCV (79.4-94.8) fl MCH (25.6-32.2) pg MCHC (32.2-35.5) g/dl RDW Std Deviation (36.4-46.3) fL Plt Count (182-369) K/mm3 MPV (9.4-12.3) fl Neut % (Auto) (34.0-71.1) % Lymph % (Auto) (19.3-51.7) % [place] % (Auto) (4.7-12.5) % Eos % (Auto) (0.7-5.8) Baso % (Auto) (0.1-1.2) % Neut # (Auto) (1.56-6.13) K/mm3 Lymph # (Auto) (1.18-3.74) K/mm3 [place] # (Auto) (0.24-0.36) K/mm3 Eos # (Auto) (0.04-0.36) K/mm3 Baso # (Auto) (0.01-0.08) K/mm3 Neutrophils % (Manual) (40-60) % Band Neutrophils % (0-10) % Lymphocytes % (Manual) (20-40) % Atypical Lymphs % % Monocytes % (Manual) (2-10) % Eosinophils % (Manual) (0.7-5.8) % Basophils % (Manual) (0.1-1.2) Platelet Estimate Plt Morphology Comment Hypochromasia Ovalocytes RBC Morph Comment PT (9.7-12.0) SECONDS INR APTT (22-31) SECONDS D-Dimer, Quantitative (0.19-0.50) mg/L Puncture Site Lt radial ABG pH 7.35 (7.35-7.45) ABG pCO2 42.5 (35.0-45.0) mmHg ABG pO2 62.0 L (80.0-100.0) mmHg ABG HCO3 23.0 (22.0-26.0) meq/L ABG O2 Saturation 90.7 L (96.0-97.0) % ABG Base Excess -1.9 (-2-2.0) Shawn Test Positive A-a Gradient 56 mmHg O2 Delivery Device Nasal cannula Oxygen Flow Rate 1.0 FiO2 24.00 (21.00-100.00) % Sodium (136-145) mEq/L Potassium (3.5-5.1) mEq/L Chloride (98-107) mEq/L Carbon Dioxide (21-32) mEq/L Anion Gap (5-15) BUN (7-18) mg/dL Creatinine (0.55-1.02) mg/dL Est Cr Clr Drug Dosing mL/min Estimated GFR (MDRD) (>60) mL/min BUN/Creatinine Ratio (14-18) Glucose (74-106) mg/dL POC Glucose (70-105) mg/dL Lactic Acid 2.7 H* (0.4-2.0) mmol/L Calcium (8.5-10.1) mg/dL Magnesium 1.7 L (1.8-2.4) mg/dl Total Bilirubin (0.2-1.0) mg/dL AST (15-37) U/L ALT (14-59) U/L Alkaline Phosphatase (46-116) U/L Troponin I (0.00-0.056) ng/mL NT-Pro-B Natriuret Pep (0-125) pg/mL Total Protein (6.4-8.2) g/dl Albumin (3.4-5.0) g/dl Globulin gm/dL Albumin/Globulin Ratio (1-2) Urine Color (Yellow) Urine Appearance (Clear) Urine pH (5.0-8.0) Ur Specific [place] (1.005-1.030) Urine Protein (Negative) Urine Glucose (UA) (Negative) Urine Ketones (Negative) Urine Occult Blood (Negative) Urine Nitrite (Negative) Urine Bilirubin (Negative) Urine Urobilinogen (0.2-1.0) Ur Leukocyte Esterase (Negative) Urine RBC (0-5) /hpf Urine WBC (0-5) /hpf Ur Epithelial Cells (0-5) /hpf Urine Bacteria (FEW) /hpf Urine Mucus (FEW) /hpf Urine Opiates Screen (AIWKYB=326) Ur Buprenorphine Scrn (CUTOFF=10) Ur Oxycodone Screen (LYG4BM=760) Urine Methadone Screen (WGVXNE=781) Ur Propoxyphene Screen (JMIBBX=006) Ur Barbiturates Screen (VLRIAF=202) Ur Tricyclics Screen (LMPIXY=054) Ur Phencyclidine Scrn (CUTOFF=25) Ur Amphetamine Screen (EYHFTV=509) U Methamphetamines Scrn (PFVBUT=663) U Benzodiazepines Scrn (BBQKZF=280) U Cocaine Metab Screen (OFUJNT=080) U Marijuana (THC) Screen (CUTOFF=50) Ethyl Alcohol (0.00) gm% 08/08/19 08/08/19 08/08/19 Range/Units 06:56 07:33 07:45 WBC (3.98-10.04) K/mm3 RBC (3.98-5.22) M/mm3 Hgb (11.2-15.7) gm/dl Hct (34.1-44.9) % MCV (79.4-94.8) fl MCH (25.6-32.2) pg MCHC (32.2-35.5) g/dl RDW Std Deviation (36.4-46.3) fL Plt Count (182-369) K/mm3 MPV (9.4-12.3) fl Neut % (Auto) (34.0-71.1) % Lymph % (Auto) (19.3-51.7) % [place] % (Auto) (4.7-12.5) % Eos % (Auto) (0.7-5.8) Baso % (Auto) (0.1-1.2) % Neut # (Auto) (1.56-6.13) K/mm3 Lymph # (Auto) (1.18-3.74) K/mm3 [place] # (Auto) (0.24-0.36) K/mm3 Eos # (Auto) (0.04-0.36) K/mm3 Baso # (Auto) (0.01-0.08) K/mm3 Neutrophils % (Manual) (40-60) % Band Neutrophils % (0-10) % Lymphocytes % (Manual) (20-40) % Atypical Lymphs % % Monocytes % (Manual) (2-10) % Eosinophils % (Manual) (0.7-5.8) % Basophils % (Manual) (0.1-1.2) Platelet Estimate Plt Morphology Comment Hypochromasia Ovalocytes RBC Morph Comment PT (9.7-12.0) SECONDS INR APTT (22-31) SECONDS D-Dimer, Quantitative (0.19-0.50) mg/L Puncture Site ABG pH (7.35-7.45) ABG pCO2 (35.0-45.0) mmHg ABG pO2 (80.0-100.0) mmHg ABG HCO3 (22.0-26.0) meq/L ABG O2 Saturation (96.0-97.0) % ABG Base Excess (-2-2.0) Shawn Test A-a Gradient mmHg O2 Delivery Device Oxygen Flow Rate FiO2 (21.00-100.00) % Sodium (136-145) mEq/L Potassium (3.5-5.1) mEq/L Chloride (98-107) mEq/L Carbon Dioxide (21-32) mEq/L Anion Gap (5-15) BUN (7-18) mg/dL Creatinine (0.55-1.02) mg/dL Est Cr Clr Drug Dosing mL/min Estimated GFR (MDRD) (>60) mL/min BUN/Creatinine Ratio (14-18) Glucose (74-106) mg/dL POC Glucose 139 H (70-105) mg/dL Lactic Acid (0.4-2.0) mmol/L Calcium (8.5-10.1) mg/dL Magnesium (1.8-2.4) mg/dl Total Bilirubin (0.2-1.0) mg/dL AST (15-37) U/L ALT (14-59) U/L Alkaline Phosphatase (46-116) U/L Troponin I (0.00-0.056) ng/mL NT-Pro-B Natriuret Pep (0-125) pg/mL Total Protein (6.4-8.2) g/dl Albumin (3.4-5.0) g/dl Globulin gm/dL Albumin/Globulin Ratio (1-2) Urine Color Yellow (Yellow) Urine Appearance Clear (Clear) Urine pH 6.0 (5.0-8.0) Ur Specific [place] 1.020 (1.005-1.030) Urine Protein Negative (Negative) Urine Glucose (UA) Negative (Negative) Urine Ketones Negative (Negative) Urine Occult Blood 1+ H (Negative) Urine Nitrite Negative (Negative) Urine Bilirubin Negative (Negative) Urine Urobilinogen 0.2 (0.2-1.0) Ur Leukocyte Esterase Negative (Negative) Urine RBC 0-5 (0-5) /hpf Urine WBC 0-5 (0-5) /hpf Ur Epithelial Cells 0-5 (0-5) /hpf Urine Bacteria Few (FEW) /hpf Urine Mucus Not seen (FEW) /hpf Urine Opiates Screen Negative (VJUBMM=777) Ur Buprenorphine Scrn Negative (CUTOFF=10) Ur Oxycodone Screen Negative (NHK3YR=949) Urine Methadone Screen Negative (AEVVTD=605) Ur Propoxyphene Screen Negative (SVVVIA=673) Ur Barbiturates Screen Negative (QGQBEL=080) Ur Tricyclics Screen Negative (UBYAUA=106) Ur Phencyclidine Scrn Negative (CUTOFF=25) Ur Amphetamine Screen Negative (RBFQNJ=137) U Methamphetamines Scrn Negative (GOZYLH=342) U Benzodiazepines Scrn Negative (KHEWKC=076) U Cocaine Metab Screen Negative (QRFZIA=275) U Marijuana (THC) Screen Presumptive positive H (CUTOFF=50) Ethyl Alcohol (0.00) gm% 08/08/19 08/08/19 08/08/19 Range/Units 08:06 08:06 08:06 WBC 11.91 H (3.98-10.04) K/mm3 RBC 4.70 (3.98-5.22) M/mm3 Hgb 13.2 (11.2-15.7) gm/dl Hct 41.5 (34.1-44.9) % MCV 88.3 (79.4-94.8) fl MCH 28.1 (25.6-32.2) pg MCHC 31.8 L (32.2-35.5) g/dl RDW Std Deviation 43.5 (36.4-46.3) fL Plt Count 279 (182-369) K/mm3 MPV 9.6 (9.4-12.3) fl Neut % (Auto) 84.0 H (34.0-71.1) % Lymph % (Auto) 12.8 L (19.3-51.7) % [place] % (Auto) 1.3 L (4.7-12.5) % Eos % (Auto) 0.7 (0.7-5.8) Baso % (Auto) 0.3 (0.1-1.2) % Neut # (Auto) 10.00 H (1.56-6.13) K/mm3 Lymph # (Auto) 1.53 (1.18-3.74) K/mm3 [place] # (Auto) 0.16 L (0.24-0.36) K/mm3 Eos # (Auto) 0.08 (0.04-0.36) K/mm3 Baso # (Auto) 0.03 (0.01-0.08) K/mm3 Neutrophils % (Manual) (40-60) % Band Neutrophils % (0-10) % Lymphocytes % (Manual) (20-40) % Atypical Lymphs % % Monocytes % (Manual) (2-10) % Eosinophils % (Manual) (0.7-5.8) % Basophils % (Manual) (0.1-1.2) Platelet Estimate Plt Morphology Comment Hypochromasia Ovalocytes RBC Morph Comment PT (9.7-12.0) SECONDS INR APTT (22-31) SECONDS D-Dimer, Quantitative (0.19-0.50) mg/L Puncture Site ABG pH (7.35-7.45) ABG pCO2 (35.0-45.0) mmHg ABG pO2 (80.0-100.0) mmHg ABG HCO3 (22.0-26.0) meq/L ABG O2 Saturation (96.0-97.0) % ABG Base Excess (-2-2.0) Shawn Test A-a Gradient mmHg O2 Delivery Device Oxygen Flow Rate FiO2 (21.00-100.00) % Sodium (136-145) mEq/L Potassium (3.5-5.1) mEq/L Chloride (98-107) mEq/L Carbon Dioxide (21-32) mEq/L Anion Gap (5-15) BUN (7-18) mg/dL Creatinine (0.55-1.02) mg/dL Est Cr Clr Drug Dosing mL/min Estimated GFR (MDRD) (>60) mL/min BUN/Creatinine Ratio (14-18) Glucose (74-106) mg/dL POC Glucose (70-105) mg/dL Lactic Acid 3.2 H* (0.4-2.0) mmol/L Calcium (8.5-10.1) mg/dL Magnesium (1.8-2.4) mg/dl Total Bilirubin (0.2-1.0) mg/dL AST (15-37) U/L ALT (14-59) U/L Alkaline Phosphatase (46-116) U/L Troponin I (0.00-0.056) ng/mL NT-Pro-B Natriuret Pep (0-125) pg/mL Total Protein (6.4-8.2) g/dl Albumin (3.4-5.0) g/dl Globulin gm/dL Albumin/Globulin Ratio (1-2) Urine Color (Yellow) Urine Appearance (Clear) Urine pH (5.0-8.0) Ur Specific [place] (1.005-1.030) Urine Protein (Negative) Urine Glucose (UA) (Negative) Urine Ketones (Negative) Urine Occult Blood (Negative) Urine Nitrite (Negative) Urine Bilirubin (Negative) Urine Urobilinogen (0.2-1.0) Ur Leukocyte Esterase (Negative) Urine RBC (0-5) /hpf Urine WBC (0-5) /hpf Ur Epithelial Cells (0-5) /hpf Urine Bacteria (FEW) /hpf Urine Mucus (FEW) /hpf Urine Opiates Screen (HAUYMN=548) Ur Buprenorphine Scrn (CUTOFF=10) Ur Oxycodone Screen (AQK1SY=011) Urine Methadone Screen (PXOUWA=901) Ur Propoxyphene Screen (KEVEUM=954) Ur Barbiturates Screen (XXSFDG=575) Ur Tricyclics Screen (VQDGWZ=778) Ur Phencyclidine Scrn (CUTOFF=25) Ur Amphetamine Screen (JCBEUW=549) U Methamphetamines Scrn (YIYKCR=739) U Benzodiazepines Scrn (ODBXST=428) U Cocaine Metab Screen (KPXHAU=667) U Marijuana (THC) Screen (CUTOFF=50) Ethyl Alcohol 0.00 (0.00) gm% 08/08/19 Range/Units 08:06 WBC (3.98-10.04) K/mm3 RBC (3.98-5.22) M/mm3 Hgb (11.2-15.7) gm/dl Hct (34.1-44.9) % MCV (79.4-94.8) fl MCH (25.6-32.2) pg MCHC (32.2-35.5) g/dl RDW Std Deviation (36.4-46.3) fL Plt Count (182-369) K/mm3 MPV (9.4-12.3) fl Neut % (Auto) (34.0-71.1) % Lymph % (Auto) (19.3-51.7) % [place] % (Auto) (4.7-12.5) % Eos % (Auto) (0.7-5.8) Baso % (Auto) (0.1-1.2) % Neut # (Auto) (1.56-6.13) K/mm3 Lymph # (Auto) (1.18-3.74) K/mm3 [place] # (Auto) (0.24-0.36) K/mm3 Eos # (Auto) (0.04-0.36) K/mm3 Baso # (Auto) (0.01-0.08) K/mm3 Neutrophils % (Manual) (40-60) % Band Neutrophils % (0-10) % Lymphocytes % (Manual) (20-40) % Atypical Lymphs % % Monocytes % (Manual) (2-10) % Eosinophils % (Manual) (0.7-5.8) % Basophils % (Manual) (0.1-1.2) Platelet Estimate Plt Morphology Comment Hypochromasia Ovalocytes RBC Morph Comment PT (9.7-12.0) SECONDS INR APTT (22-31) SECONDS D-Dimer, Quantitative (0.19-0.50) mg/L Puncture Site ABG pH (7.35-7.45) ABG pCO2 (35.0-45.0) mmHg ABG pO2 (80.0-100.0) mmHg ABG HCO3 (22.0-26.0) meq/L ABG O2 Saturation (96.0-97.0) % ABG Base Excess (-2-2.0) Shawn Test A-a Gradient mmHg O2 Delivery Device Oxygen Flow Rate FiO2 (21.00-100.00) % Sodium 139 (136-145) mEq/L Potassium 4.4 (3.5-5.1) mEq/L Chloride 103 (98-107) mEq/L Carbon Dioxide 23 (21-32) mEq/L Anion Gap 17.4 H (5-15) BUN 11 (7-18) mg/dL Creatinine 0.7 (0.55-1.02) mg/dL Est Cr Clr Drug Dosing 69.33 mL/min Estimated GFR (MDRD) > 60 (>60) mL/min BUN/Creatinine Ratio 15.7 (14-18) Glucose 158 H (74-106) mg/dL POC Glucose (70-105) mg/dL Lactic Acid (0.4-2.0) mmol/L Calcium 9.5 (8.5-10.1) mg/dL Magnesium (1.8-2.4) mg/dl Total Bilirubin 0.5 (0.2-1.0) mg/dL AST 30 (15-37) U/L ALT 63 H (14-59) U/L Alkaline Phosphatase 93 (46-116) U/L Troponin I (0.00-0.056) ng/mL NT-Pro-B Natriuret Pep (0-125) pg/mL Total Protein 7.1 (6.4-8.2) g/dl Albumin 3.6 (3.4-5.0) g/dl Globulin 3.5 gm/dL Albumin/Globulin Ratio 1.0 (1-2) Urine Color (Yellow) Urine Appearance (Clear) Urine pH (5.0-8.0) Ur Specific [place] (1.005-1.030) Urine Protein (Negative) Urine Glucose (UA) (Negative) Urine Ketones (Negative) Urine Occult Blood (Negative) Urine Nitrite (Negative) Urine Bilirubin (Negative) Urine Urobilinogen (0.2-1.0) Ur Leukocyte Esterase (Negative) Urine RBC (0-5) /hpf Urine WBC (0-5) /hpf Ur Epithelial Cells (0-5) /hpf Urine Bacteria (FEW) /hpf Urine Mucus (FEW) /hpf Urine Opiates Screen (JYTGOT=212) Ur Buprenorphine Scrn (CUTOFF=10) Ur Oxycodone Screen (QDH0WN=577) Urine Methadone Screen (FOCJWQ=939) Ur Propoxyphene Screen (MEMWZA=661) Ur Barbiturates Screen (YUSJXO=661) Ur Tricyclics Screen (XTGUFX=836) Ur Phencyclidine Scrn (CUTOFF=25) Ur Amphetamine Screen (HCSIDO=435) U Methamphetamines Scrn (LWULKK=891) U Benzodiazepines Scrn (QOKKBT=498) U Cocaine Metab Screen (AXRLDE=125) U Marijuana (THC) Screen (CUTOFF=50) Ethyl Alcohol (0.00) gm% Result Diagrams: 08/08/19 08:06 08/08/19 08:06 Arthur Results Last 24 hrs: Microbiology 08/07/19 23:40 Anaerobic Blood Culture - Final Blood - Venous - Lab Draw Sepsis Event Note - Evaluation Sepsis Screening Result: No Definite Risk - Focused Exam Vital Signs: Vital Signs Temp Temp Pulse Pulse Resp BP BP 08/08/19 08:43 08/08/19 04:36 98.1 F 94 22 H 136/72 08/08/19 03:21 08/08/19 02:09 97.9 F 93 18 128/81 08/08/19 02:07 97.8 F 80 20 121/82 08/07/19 23:31 08/07/19 23:00 96.5 F L 88 25 H 136/108 H Pulse Ox Pulse Ox Pulse Ox 08/08/19 08:43 96 08/08/19 04:36 94 L 08/08/19 03:21 94 L 08/08/19 02:09 95 08/08/19 02:07 90 L 08/07/19 23:31 100 08/07/19 23:00 93 L Date Exam was Performed: 08/08/19 Time Exam was Performed: 09:13 Problem List Initiated/Reviewed/Updated: Yes Orders Last 24hrs: Active Orders 24 hr Category Date Time Status Admission Status [Patient Status] [ADT] Routine ADT 08/08/19 01:24 Active Blood Glucose Check, Bedside [RC] WITHMEALSANDBED Care 08/08/19 02:40 Active Oxygen Therapy [RC] PRN Care 08/08/19 02:31 Active RT Aerosol Therapy [RC] ASDIRECTED Care 08/07/19 23:21 Active Up ad Breana [RC] BID Care 08/08/19 02:31 Active VTE/DVT Education [RC] DAILY Care 08/08/19 02:31 Active Vital Signs [RC] Q4HR Care 08/08/19 02:31 Active Regular Diet [DIET] Diet 08/08/19 Breakfast Active Chest 2V [CR] Stat Exams 08/07/19 23:22 Taken CBC WITH AUTO DIFF [HEME] Stat Lab 08/08/19 08:06 Results CULTURE BLOOD [BC] Stat Lab 08/07/19 23:40 Results CULTURE BLOOD [BC] Stat Lab 08/07/19 23:50 Received LACTIC ACID [CHEM] Routine Lab 08/08/19 12:00 Ordered PROCALCITONIN [REF] Stat Lab 08/08/19 05:05 Received REFLEX LACTIC ACID YES OR NO [CHEM] Routine Lab 08/08/19 08:51 Received Aspirin [Ecotrin] Med 08/08/19 09:00 Active 325 mg PO DAILY Dextrose 50% in Water Med 08/08/19 02:40 Active 50 ml IVPUSH ASDIRECTED PRN Doxycycline [Vibramycin] Med 08/08/19 09:00 Active 100 mg PO Q12HR Enoxaparin [Lovenox] Med 08/08/19 09:00 Active 40 mg SUBCUT DAILY Gabapentin [Neurontin] Med 08/08/19 21:00 Active 300 mg PO BEDTIME Ibuprofen [Motrin] Med 08/08/19 08:41 Active 400 mg PO Q4H PRN Insulin Lispro [HumaLOG] Med 08/08/19 07:00 Active See Protocol SUBCUT QIDACANDBED Ipratropium [Atrovent] Med 08/08/19 03:00 Active 0.5 mg NEB Q6HRRT LORazepam [Ativan] Med 08/08/19 02:31 Active 1 mg IV Q4H PRN Lactated Ringers [Ringers, Lactated] 1,000 ml Med 08/08/19 09:15 Active IV ASDIRECTED Magnesium Sulfate/Water [Magnesium Sulfate in Water Med 08/08/19 07:30 Active Premix] 4 gm Premix Bag 1 bag IV ONETIME Meloxicam Med 08/08/19 21:00 Active 0 mg PO BEDTIME Ondansetron [Zofran] Med 08/08/19 02:31 Active 4 mg IV Q4H PRN Pantoprazole [ProTONIX] Med 08/08/19 09:00 Active 40 mg PO DAILY Pramipexole [Mirapex] Med 08/08/19 21:00 Active 0.25 mg PO BEDTIME lisinopriL [Prinivil] Med 08/08/19 09:00 Active 10 mg PO DAILY Blood Culture x2 Reflex Set [OM.PC] Stat Oth 08/07/19 23:22 Ordered Resuscitation Status Routine Resus Stat 08/08/19 02:31 Ordered Medication Orders Aspirin (Ecotrin) 325 mg PO DAILY [facility] Last Admin: 08/08/19 09:10 Dose: 325 mg Dextrose/Water (Dextrose 50% In Water) 50 ml IVPUSH ASDIRECTED PRN PRN Reason: Hypoglycemia Doxycycline Hyclate (Vibramycin) 100 mg PO Q12HR [facility] Last Admin: 08/08/19 09:10 Dose: 100 mg Enoxaparin Sodium (Lovenox) 40 mg SUBCUT DAILY [facility] Last Admin: 08/08/19 09:10 Dose: 40 mg Gabapentin (Neurontin) 300 mg PO BEDTIME [facility] Magnesium Sulfate 4 gm/ Premix 50 mls @ 12.5 mls/hr IV ONETIME ONE Stop: 08/08/19 11:29 Last Admin: 08/08/19 09:10 Dose: 12.5 mls/hr Lactated Ringer's (Ringers, Lactated) 1,000 mls @ 150 mls/hr IV ASDIRECTED [facility] Ibuprofen (Motrin) 400 mg PO Q4H PRN PRN Reason: Pain Insulin Human Lispro (Humalog) 0 unit SUBCUT QIDACANDBED [facility]; Protocol Last Admin: 08/08/19 09:11 Dose: Not Given Ipratropium [place] (Atrovent) 0.5 mg NEB Q6HRRT [facility] Last Admin: 08/08/19 08:42 Dose: 0.5 mg Admin: 08/08/19 03:18 Dose: 0.5 mg Lisinopril (Prinivil) 10 mg PO DAILY [facility] Lorazepam (Ativan) 1 mg IV Q4H PRN PRN Reason: Anxiety Meloxicam 15 Mg (Ptom) 0 mg PO BEDTIME [facility] Ondansetron HCl (Zofran) 4 mg IV Q4H PRN PRN Reason: Nausea/Vomiting Pantoprazole Sodium (Protonix) 40 mg PO DAILY [facility] Pramipexole Dihydrochloride (Mirapex) 0.25 mg PO BEDTIME [facility] Assessment/Plan Comment:: Exacerbation of COPD Hyperventilation with low PCO2 and elevated pH/respiratory alkalosis * Patient received 3 albuterol nebulizers within 4 hours without improvement * Patient had improvement in symptoms after getting Ativan 1 mg IV in the emergency department * This morning patient states she is feeling much better. * Received prednisone 60 mg in the emergency department * Chest x-ray negative for infiltrate Plan * Admit to medical floor for close observation * Ipratropium bromide nebulizer every 6 hours for COPD * Hold albuterol at this time secondary to hyperventilation and elevated lactic acid * Prednisone 40 mg daily starting tomorrow morning * FiO2 to keep SPO2 greater than 90% * Switch antibiotics to Levaquin Elevated lactic acid * Lactic acid has increased from 2.5-->2.7-->3.2 * Likely secondary to high dose beta adrenergic agent albuterol. The lactic increase may be due to adrenergic induced clinical lysis and lipid lysis which increase pyruvate and free fatty acid concentrations converting pyruvate to lactate. * Increased lactic acid also may be due to metformin. * Patient has no signs of significant bacterial infection, therefore it essentially rules out sepsis. * Respiratory alkalosis, severe asthma, decreased oxygen delivery, diabetes, and idiopathic can also cause elevated lactic acid. Also if she woke up hypoglycemic this could have started the lactic acidosis. Plan * Avoid albuterol and metoprolol * Treat hypoxemia * Increase IV fluids to 150 mL/h * Follow lactic acid every 3 hours Diabetes mellitus * Well controlled with metformin 5000 mg a day * Unknown hemoglobin A1c Plan * Hold metformin * Sliding scale insulin Irritable bowel syndrome * Patient reports multiple loose bowel movements * This may be attributing to lactic acidosis through hypovolemia Plan * Continue close monitoring Hypertension/hyperlipidemia Plan continue home meds VTE prophylaxis with Lovenox CODE STATUS full code - Mortality Measure Prognosis:: Good
--- NOTE | 2019-08-08 10:27 | CR ---
Chest: 2 views of the chest were obtained. Comparison: Prior chest x-ray of 06/24/18. Heart size and mediastinum are normal. Lungs are clear with no acute parenchymal change. Prior surgery is noted within the left shoulder. Mild disc space narrowing is scattered within the thoracic spine. Impression: 1. Nothing acute is seen on 2 view chest x-ray. Diagnostic code #2 This report was dictated in MDT
[2019-08-08] MEDS: Lactated Ringers 1,000 ML IV SCH ×2 (11:38→18:22)
[2019-08-08] MEDS ORDERED: Sodium Chloride 0.9% 10 ML Syringe FLUSH PRN (20:05)
[2019-08-08] MEDS ORDERED: Gabapentin 300 MG Cap **PTOM PO SCH (21:00)
[2019-08-08] MEDS ORDERED: MELOXICAM 15 MG PO SCH (21:00)
[2019-08-08] MEDS ORDERED: PRAMIPEXOLE 0.25 MG PO SCH (21:00)
[2019-08-08] MEDS: Amoxicillin/Clavulanate K 875-125 MG Tab PO SCH (21:14)
[2019-08-09] MEDS: Ipratropium 0.02% 0.5 MG/2.5 ML Neb Soln NEB SCH ×2 (03:18→08:56)
[2019-08-09 04:15] VITALS: BP 106/88; PULSE 69
[2019-08-09] MEDS ORDERED: predniSONE 20 MG Tab PO SCH (07:00)
[2019-08-09] MEDS: Insulin Lispro 100 Units/ML 3 ML Vial SUBCUT SCH (07:25)
--- NOTE | 2019-08-09 08:23 | PCM.DCSUM1 ---
Discharge Summary - Hospital Course HPI Initial Comments: 54-year-old patient with history of COPD, asthma, allergic rhinitis, diabetes on metformin, anxiety and depression, irritable bowel syndrome, hypertension, and hyperlipidemia presents to the emergency department after waking up gasping for air. Patient states for the last 3 to 4 weeks she has felt congested and had a cough. She ran out of albuterol and she went to her primary care for COVID testing which was negative. She refilled her albuterol and over the last 2 weeks she is grown increasingly hoarse, developed a dry cough, and then yesterday became short of breath especially between coughing fits. Last night she took a 35-minute nap and woke up gasping and having difficulty catching her breath. She took 2 albuterol nebulizers within 3 hours and came into the emergency department. In the emergency department she was found to be tachypneic with a respiratory rate of 25, afebrile, and saturating 93 to 97% on room air. Patient also states that she has chronic watery diarrhea. She denies any fever, chills, chest pain, palpitations, nausea or vomiting. No bloody stools or black tarry stools. In the emergency department blood work showed a BC of 11.02, hemoglobin 13.0, platelets 318, D-dimer 0.30, electrolytes and renal function normal, troponin less than 0.017, normal liver enzymes, proBNP of 8, lactic acid elevated at 2.5. Chest x-ray was negative for infiltrate, effusions, or vascular congestion. ABG was significant for pH of 7.59, PCO2 of 19.1, PO2 of 81 on room air, bicarb of 18.3. This was consistent with hyperventilation. She received another albuterol/ipratropium bromide nebulizer. Prednisone 60 mg p.o. She then received a Lorazepam 1 mg IV push to help with anxiety and transferred to the floor in observation. Repeat lactic acid this morning was elevated at 2.7. Patient had received 500 mL bolus of LR and 125 mL an hour starting around 0300 hrs. Diagnosis: Stroke: No - Discharge Data Discharge Date: 08/09/19 Discharge Disposition: Home, Self-Care 01 Condition: Good - Referral to Home Health Primary Care Physician: Cathy Cramer PA-C - Patient Summary/Data Hospital Course: Admission Exacerbation of COPD Hyperventilation with low PCO2 and elevated pH/respiratory alkalosis * Patient received 3 albuterol nebulizers within 4 hours without improvement * Patient had improvement in symptoms after getting Ativan 1 mg IV in the emergency department * This morning patient states she is feeling much better. * Received prednisone 60 mg in the emergency department * Chest x-ray negative for infiltrate Plan * Admit to medical floor for close observation * Ipratropium bromide nebulizer every 6 hours for COPD * Hold albuterol at this time secondary to hyperventilation and elevated lactic acid * Prednisone 40 mg daily starting tomorrow morning * FiO2 to keep SPO2 greater than 90% * Switch antibiotics to Levaquin Elevated lactic acid * Lactic acid has increased from 2.5-->2.7-->3.2-->2.0 * Likely secondary to high dose beta adrenergic agent albuterol. The lactic increase may be due to adrenergic induced clinical lysis and lipid lysis which increase pyruvate and free fatty acid concentrations converting pyruvate to lactate. * Increased lactic acid also may be due to metformin. * Patient has no signs of significant bacterial infection, therefore it essentially rules out sepsis. * Respiratory alkalosis, severe asthma, decreased oxygen delivery, diabetes, and idiopathic can also cause elevated lactic acid. Also if she woke up hypoglycemic this could have started the lactic acidosis. Plan * Avoid albuterol until resolution of lactic acid * Treat hypoxemia * Increase IV fluids to 150 mL/h * Follow lactic acid every 3 hours Diabetes mellitus * Well controlled with metformin 1500 mg a day * Unknown hemoglobin A1c Plan * Hold metformin until resolution of lactic acid * Sliding scale insulin Irritable bowel syndrome * Patient reports multiple loose bowel movements * This may be attributing to lactic acidosis through hypovolemia Plan * Continue close monitoring Hypertension/hyperlipidemia Plan continue home meds Day of discharge Respiratory alkalosis resolved Patient is feeling well and off oxygen. She denies any shortness of breath continues to have a cough though. Patient will go home on Augmentin and prednisone for 4 days. She will avoid using albuterol more than every 4 hours. Ipratropium bromide ordered for every 6 hours while she is symptomatic. - Patient Instructions Diet: Diabetic Diet Activity: As Tolerated Driving: May Drive Today Showering/Bathing: May Shower Other/Special Instructions: Follow-up with primary care provider in the next 5 days. - Discharge Plan *PRESCRIPTION DRUG MONITORING PROGRAM REVIEWED*: No *COPY OF PRESCRIPTION DRUG MONITORING REPORT IN PATIENT JAY JAY: No Prescriptions/Med Rec: Amoxicillin/Clavulanate K [Augmentin 875-125 MG] 1 tab PO Q12HR #8 tablet Codeine/guaiFENesin [Robitussin AC] 5 ml PO Q4H PRN #1 bottle PRN Reason: Cough Ipratropium [Atrovent] 0.5 mg NEB Q6HRRT #40 neb predniSONE 40 mg PO WITHBREAKFAST #16 tablet Home Medications: Home Meds Aspirin [Ecotrin EC] 325 mg PO DAILY 03/09/14 [History] Pantoprazole [ProTONIX] 40 mg PO DAILY #30 tab.cr 05/14/14 [Rx] metFORMIN [Glucophage] 1,000 mg PO BEDTIME 11/29/15 [History] SUMAtriptan [Imitrex] 50 mg PO ASDIRECTED PRN 11/01/16 [History] Gabapentin [Neurontin] 300 mg PO BEDTIME 09/09/17 [History] Meloxicam 15 mg PO BEDTIME 10/27/17 [History] Pramipexole Di-HCl [Mirapex] 0.25 mg PO BEDTIME 10/27/17 [History] Albuterol Sulfate 1.25 mg IH Q6H #20 ampule 07/22/19 [Rx] Albuterol [Proventil HFA] 2 puff INH Q4H PRN #1 inhaler 07/22/19 [Rx] lisinopriL [Lisinopril] 10 mg PO DAILY 08/07/19 [History] Ibuprofen 400 mg PO Q4H PRN 08/08/19 [History] Amoxicillin/Clavulanate K [Augmentin 875-125 MG] 1 tab PO Q12HR #8 tablet [Rx] Codeine/guaiFENesin [Robitussin AC] 5 ml PO Q4H PRN #1 bottle 08/09/19 [Rx] Ipratropium [Atrovent] 0.5 mg NEB Q6HRRT #40 neb 08/09/19 [Rx] predniSONE 40 mg PO WITHBREAKFAST #16 tablet 08/09/19 [Rx] Oxygen Therapy Mode: Room Air Forms: ED Department Discharge Referrals: Cathy Cramer PA-C [Primary Care Provider] - - Discharge Summary/Plan Comment DC Time >30 min.: Yes Discharge Summary/Plan Comment: Discharged home in good condition. Follow-up with primary care provider within the next week. - General Info Date of Service: 08/09/19 Admission Dx/Problem (Free Text: Admission Diagnosis/Problem Admission Diagnosis/Problem Hyperventilation Subjective Update: Is feeling much better today. She is off oxygen and is not short of breath. She does complain of some moderate cough. Nonproductive. Functional Status: Reports: Pain Controlled - Review of Systems General: Reports: No Symptoms HEENT: Reports: No Symptoms Pulmonary: Reports: Cough. Denies: Shortness of Breath Cardiovascular: Reports: No Symptoms Gastrointestinal: Reports: No Symptoms Musculoskeletal: Reports: No Symptoms Skin: Reports: No Symptoms Neurological: Reports: No Symptoms Psychiatric: Reports: No Symptoms - Patient Data Vitals - Most Recent: Last Vital Signs Temp 97.5 F 08/09/19 03:36 Pulse 69 08/09/19 03:36 Resp 20 08/09/19 03:36 BP 106/88 08/09/19 03:36 Pulse Ox 94 L 08/09/19 03:36 Weight - Most Recent: 224 lb I&O - Last 24 hours: Intake & Output 08/08/19 08/09/19 08/09/19 22:59 06:59 14:59 Intake Total 3531 1000 Output Total 3300 3400 Balance 231 -2400 Lab Results - Last 24 hrs: Laboratory Results - last 24 hr 08/08/19 08/08/19 08/08/19 Range/Units 07:33 07:45 08:06 WBC (3.98-10.04) K/mm3 RBC (3.98-5.22) M/mm3 Hgb (11.2-15.7) gm/dl Hct (34.1-44.9) % MCV (79.4-94.8) fl MCH (25.6-32.2) pg MCHC (32.2-35.5) g/dl RDW Std Deviation (36.4-46.3) fL Plt Count (182-369) K/mm3 MPV (9.4-12.3) fl Neut % (Auto) (34.0-71.1) % Lymph % (Auto) (19.3-51.7) % [place] % (Auto) (4.7-12.5) % Eos % (Auto) (0.7-5.8) Baso % (Auto) (0.1-1.2) % Neut # (Auto) (1.56-6.13) K/mm3 Lymph # (Auto) (1.18-3.74) K/mm3 [place] # (Auto) (0.24-0.36) K/mm3 Eos # (Auto) (0.04-0.36) K/mm3 Baso # (Auto) (0.01-0.08) K/mm3 Manual Slide Review Sodium (136-145) mEq/L Potassium (3.5-5.1) mEq/L Chloride (98-107) mEq/L Carbon Dioxide (21-32) mEq/L Anion Gap (5-15) BUN (7-18) mg/dL Creatinine (0.55-1.02) mg/dL Est Cr Clr Drug Dosing mL/min Estimated GFR (MDRD) (>60) mL/min BUN/Creatinine Ratio (14-18) Glucose (74-106) mg/dL POC Glucose (70-105) mg/dL Lactic Acid (0.4-2.0) mmol/L Calcium (8.5-10.1) mg/dL Magnesium (1.8-2.4) mg/dl Total Bilirubin (0.2-1.0) mg/dL AST (15-37) U/L ALT (14-59) U/L Alkaline Phosphatase (46-116) U/L Total Protein (6.4-8.2) g/dl Albumin (3.4-5.0) g/dl Globulin gm/dL Albumin/Globulin Ratio (1-2) Urine Color Yellow (Yellow) Urine Appearance Clear (Clear) Urine pH 6.0 (5.0-8.0) Ur Specific [place] 1.020 (1.005-1.030) Urine Protein Negative (Negative) Urine Glucose (UA) Negative (Negative) Urine Ketones Negative (Negative) Urine Occult Blood 1+ H (Negative) Urine Nitrite Negative (Negative) Urine Bilirubin Negative (Negative) Urine Urobilinogen 0.2 (0.2-1.0) Ur Leukocyte Esterase Negative (Negative) Urine RBC 0-5 (0-5) /hpf Urine WBC 0-5 (0-5) /hpf Ur Epithelial Cells 0-5 (0-5) /hpf Urine Bacteria Few (FEW) /hpf Urine Mucus Not seen (FEW) /hpf Urine Opiates Screen Negative (NOQQLA=103) Ur Buprenorphine Scrn Negative (CUTOFF=10) Ur Oxycodone Screen Negative (KBM5RO=498) Urine Methadone Screen Negative (VTXIXV=964) Ur Propoxyphene Screen Negative (DZYDJS=184) Ur Barbiturates Screen Negative (RRUYOH=294) Ur Tricyclics Screen Negative (SNHRKQ=129) Ur Phencyclidine Scrn Negative (CUTOFF=25) Ur Amphetamine Screen Negative (XLHEWU=449) U Methamphetamines Scrn Negative (TVPBYS=194) U Benzodiazepines Scrn Negative (FQWMQJ=671) U Cocaine Metab Screen Negative (VCEEZZ=228) U Marijuana (THC) Screen Presumptive positive H (CUTOFF=50) Ethyl Alcohol 0.00 (0.00) gm% 08/08/19 08/08/19 08/08/19 Range/Units 08:06 08:06 08:06 WBC 11.91 H (3.98-10.04) K/mm3 RBC 4.70 (3.98-5.22) M/mm3 Hgb 13.2 (11.2-15.7) gm/dl Hct 41.5 (34.1-44.9) % MCV 88.3 (79.4-94.8) fl MCH 28.1 (25.6-32.2) pg MCHC 31.8 L (32.2-35.5) g/dl RDW Std Deviation 43.5 (36.4-46.3) fL Plt Count 279 (182-369) K/mm3 MPV 9.6 (9.4-12.3) fl Neut % (Auto) 84.0 H (34.0-71.1) % Lymph % (Auto) 12.8 L (19.3-51.7) % [place] % (Auto) 1.3 L (4.7-12.5) % Eos % (Auto) 0.7 (0.7-5.8) Baso % (Auto) 0.3 (0.1-1.2) % Neut # (Auto) 10.00 H (1.56-6.13) K/mm3 Lymph # (Auto) 1.53 (1.18-3.74) K/mm3 [place] # (Auto) 0.16 L (0.24-0.36) K/mm3 Eos # (Auto) 0.08 (0.04-0.36) K/mm3 Baso # (Auto) 0.03 (0.01-0.08) K/mm3 Manual Slide Review Normal smear Sodium 139 (136-145) mEq/L Potassium 4.4 (3.5-5.1) mEq/L Chloride 103 (98-107) mEq/L Carbon Dioxide 23 (21-32) mEq/L Anion Gap 17.4 H (5-15) BUN 11 (7-18) mg/dL Creatinine 0.7 (0.55-1.02) mg/dL Est Cr Clr Drug Dosing 69.33 mL/min Estimated GFR (MDRD) > 60 (>60) mL/min BUN/Creatinine Ratio 15.7 (14-18) Glucose 158 H (74-106) mg/dL POC Glucose (70-105) mg/dL Lactic Acid 3.2 H* (0.4-2.0) mmol/L Calcium 9.5 (8.5-10.1) mg/dL Magnesium (1.8-2.4) mg/dl Total Bilirubin 0.5 (0.2-1.0) mg/dL AST 30 (15-37) U/L ALT 63 H (14-59) U/L Alkaline Phosphatase 93 (46-116) U/L Total Protein 7.1 (6.4-8.2) g/dl Albumin 3.6 (3.4-5.0) g/dl Globulin 3.5 gm/dL Albumin/Globulin Ratio 1.0 (1-2) Urine Color (Yellow) Urine Appearance (Clear) Urine pH (5.0-8.0) Ur Specific [place] (1.005-1.030) Urine Protein (Negative) Urine Glucose (UA) (Negative) Urine Ketones (Negative) Urine Occult Blood (Negative) Urine Nitrite (Negative) Urine Bilirubin (Negative) Urine Urobilinogen (0.2-1.0) Ur Leukocyte Esterase (Negative) Urine RBC (0-5) /hpf Urine WBC (0-5) /hpf Ur Epithelial Cells (0-5) /hpf Urine Bacteria (FEW) /hpf Urine Mucus (FEW) /hpf Urine Opiates Screen (RYQZLJ=375) Ur Buprenorphine Scrn (CUTOFF=10) Ur Oxycodone Screen (DAN6RN=146) Urine Methadone Screen (ROZRDT=374) Ur Propoxyphene Screen (NSCWOJ=309) Ur Barbiturates Screen (QTXVJA=559) Ur Tricyclics Screen (JVVHYF=617) Ur Phencyclidine Scrn (CUTOFF=25) Ur Amphetamine Screen (YILIFT=503) U Methamphetamines Scrn (HFLOVM=461) U Benzodiazepines Scrn (CWXZGE=906) U Cocaine Metab Screen (UHRNFE=144) U Marijuana (THC) Screen (CUTOFF=50) Ethyl Alcohol (0.00) gm% 08/08/19 08/08/19 08/08/19 Range/Units 11:36 12:10 15:12 WBC (3.98-10.04) K/mm3 RBC (3.98-5.22) M/mm3 Hgb (11.2-15.7) gm/dl Hct (34.1-44.9) % MCV (79.4-94.8) fl MCH (25.6-32.2) pg MCHC (32.2-35.5) g/dl RDW Std Deviation (36.4-46.3) fL Plt Count (182-369) K/mm3 MPV (9.4-12.3) fl Neut % (Auto) (34.0-71.1) % Lymph % (Auto) (19.3-51.7) % [place] % (Auto) (4.7-12.5) % Eos % (Auto) (0.7-5.8) Baso % (Auto) (0.1-1.2) % Neut # (Auto) (1.56-6.13) K/mm3 Lymph # (Auto) (1.18-3.74) K/mm3 [place] # (Auto) (0.24-0.36) K/mm3 Eos # (Auto) (0.04-0.36) K/mm3 Baso # (Auto) (0.01-0.08) K/mm3 Manual Slide Review Sodium (136-145) mEq/L Potassium (3.5-5.1) mEq/L Chloride (98-107) mEq/L Carbon Dioxide (21-32) mEq/L Anion Gap (5-15) BUN (7-18) mg/dL Creatinine (0.55-1.02) mg/dL Est Cr Clr Drug Dosing mL/min Estimated GFR (MDRD) (>60) mL/min BUN/Creatinine Ratio (14-18) Glucose (74-106) mg/dL POC Glucose 147 H (70-105) mg/dL Lactic Acid 2.1 H* 2.0 (0.4-2.0) mmol/L Calcium (8.5-10.1) mg/dL Magnesium (1.8-2.4) mg/dl Total Bilirubin (0.2-1.0) mg/dL AST (15-37) U/L ALT (14-59) U/L Alkaline Phosphatase (46-116) U/L Total Protein (6.4-8.2) g/dl Albumin (3.4-5.0) g/dl Globulin gm/dL Albumin/Globulin Ratio (1-2) Urine Color (Yellow) Urine Appearance (Clear) Urine pH (5.0-8.0) Ur Specific [place] (1.005-1.030) Urine Protein (Negative) Urine Glucose (UA) (Negative) Urine Ketones (Negative) Urine Occult Blood (Negative) Urine Nitrite (Negative) Urine Bilirubin (Negative) Urine Urobilinogen (0.2-1.0) Ur Leukocyte Esterase (Negative) Urine RBC (0-5) /hpf Urine WBC (0-5) /hpf Ur Epithelial Cells (0-5) /hpf Urine Bacteria (FEW) /hpf Urine Mucus (FEW) /hpf Urine Opiates Screen (OJPWES=391) Ur Buprenorphine Scrn (CUTOFF=10) Ur Oxycodone Screen (ORA8LO=223) Urine Methadone Screen (UKCSDC=597) Ur Propoxyphene Screen (GMWNNO=349) Ur Barbiturates Screen (DGVIHG=910) Ur Tricyclics Screen (SZXPUK=524) Ur Phencyclidine Scrn (CUTOFF=25) Ur Amphetamine Screen (OPQAJM=613) U Methamphetamines Scrn (VPDMPW=368) U Benzodiazepines Scrn (MDKAXK=348) U Cocaine Metab Screen (YPXQNR=613) U Marijuana (THC) Screen (CUTOFF=50) Ethyl Alcohol (0.00) gm% 08/08/19 08/08/19 08/09/19 Range/Units 17:03 21:20 05:15 WBC 10.52 H (3.98-10.04) K/mm3 RBC 4.30 (3.98-5.22) M/mm3 Hgb 12.1 (11.2-15.7) gm/dl Hct 38.6 (34.1-44.9) % MCV 89.8 (79.4-94.8) fl MCH 28.1 (25.6-32.2) pg MCHC 31.3 L (32.2-35.5) g/dl RDW Std Deviation 45.0 (36.4-46.3) fL Plt Count 244 (182-369) K/mm3 MPV 9.7 (9.4-12.3) fl Neut % (Auto) 52.9 (34.0-71.1) % Lymph % (Auto) 36.3 (19.3-51.7) % [place] % (Auto) 6.7 (4.7-12.5) % Eos % (Auto) 3.0 (0.7-5.8) Baso % (Auto) 0.3 (0.1-1.2) % Neut # (Auto) 5.56 (1.56-6.13) K/mm3 Lymph # (Auto) 3.82 H (1.18-3.74) K/mm3 [place] # (Auto) 0.71 H (0.24-0.36) K/mm3 Eos # (Auto) 0.32 (0.04-0.36) K/mm3 Baso # (Auto) 0.03 (0.01-0.08) K/mm3 Manual Slide Review Sodium (136-145) mEq/L Potassium (3.5-5.1) mEq/L Chloride (98-107) mEq/L Carbon Dioxide (21-32) mEq/L Anion Gap (5-15) BUN (7-18) mg/dL Creatinine (0.55-1.02) mg/dL Est Cr Clr Drug Dosing mL/min Estimated GFR (MDRD) (>60) mL/min BUN/Creatinine Ratio (14-18) Glucose (74-106) mg/dL POC Glucose 96 118 H (70-105) mg/dL Lactic Acid (0.4-2.0) mmol/L Calcium (8.5-10.1) mg/dL Magnesium (1.8-2.4) mg/dl Total Bilirubin (0.2-1.0) mg/dL AST (15-37) U/L ALT (14-59) U/L Alkaline Phosphatase (46-116) U/L Total Protein (6.4-8.2) g/dl Albumin (3.4-5.0) g/dl Globulin gm/dL Albumin/Globulin Ratio (1-2) Urine Color (Yellow) Urine Appearance (Clear) Urine pH (5.0-8.0) Ur Specific [place] (1.005-1.030) Urine Protein (Negative) Urine Glucose (UA) (Negative) Urine Ketones (Negative) Urine Occult Blood (Negative) Urine Nitrite (Negative) Urine Bilirubin (Negative) Urine Urobilinogen (0.2-1.0) Ur Leukocyte Esterase (Negative) Urine RBC (0-5) /hpf Urine WBC (0-5) /hpf Ur Epithelial Cells (0-5) /hpf Urine Bacteria (FEW) /hpf Urine Mucus (FEW) /hpf Urine Opiates Screen (BTFNKP=954) Ur Buprenorphine Scrn (CUTOFF=10) Ur Oxycodone Screen (NDN0BS=849) Urine Methadone Screen (QLQLKZ=104) Ur Propoxyphene Screen (LNVTYA=852) Ur Barbiturates Screen (OUVFED=315) Ur Tricyclics Screen (HEVSDQ=648) Ur Phencyclidine Scrn (CUTOFF=25) Ur Amphetamine Screen (RXJWBX=063) U Methamphetamines Scrn (OTVUAK=048) U Benzodiazepines Scrn (BIDCCS=100) U Cocaine Metab Screen (YHYVBN=957) U Marijuana (THC) Screen (CUTOFF=50) Ethyl Alcohol (0.00) gm% 08/09/19 08/09/19 Range/Units 05:15 06:55 WBC (3.98-10.04) K/mm3 RBC (3.98-5.22) M/mm3 Hgb (11.2-15.7) gm/dl Hct (34.1-44.9) % MCV (79.4-94.8) fl MCH (25.6-32.2) pg MCHC (32.2-35.5) g/dl RDW Std Deviation (36.4-46.3) fL Plt Count (182-369) K/mm3 MPV (9.4-12.3) fl Neut % (Auto) (34.0-71.1) % Lymph % (Auto) (19.3-51.7) % [place] % (Auto) (4.7-12.5) % Eos % (Auto) (0.7-5.8) Baso % (Auto) (0.1-1.2) % Neut # (Auto) (1.56-6.13) K/mm3 Lymph # (Auto) (1.18-3.74) K/mm3 [place] # (Auto) (0.24-0.36) K/mm3 Eos # (Auto) (0.04-0.36) K/mm3 Baso # (Auto) (0.01-0.08) K/mm3 Manual Slide Review Sodium 141 (136-145) mEq/L Potassium 4.2 (3.5-5.1) mEq/L Chloride 105 (98-107) mEq/L Carbon Dioxide 27 (21-32) mEq/L Anion Gap 13.2 (5-15) BUN 15 (7-18) mg/dL Creatinine 0.5 L (0.55-1.02) mg/dL Est Cr Clr Drug Dosing 97.06 mL/min Estimated GFR (MDRD) > 60 (>60) mL/min BUN/Creatinine Ratio 30.0 H (14-18) Glucose 117 H (74-106) mg/dL POC Glucose 96 (70-105) mg/dL Lactic Acid (0.4-2.0) mmol/L Calcium 8.6 (8.5-10.1) mg/dL Magnesium 2.1 (1.8-2.4) mg/dl Total Bilirubin (0.2-1.0) mg/dL AST (15-37) U/L ALT (14-59) U/L Alkaline Phosphatase (46-116) U/L Total Protein (6.4-8.2) g/dl Albumin (3.4-5.0) g/dl Globulin gm/dL Albumin/Globulin Ratio (1-2) Urine Color (Yellow) Urine Appearance (Clear) Urine pH (5.0-8.0) Ur Specific [place] (1.005-1.030) Urine Protein (Negative) Urine Glucose (UA) (Negative) Urine Ketones (Negative) Urine Occult Blood (Negative) Urine Nitrite (Negative) Urine Bilirubin (Negative) Urine Urobilinogen (0.2-1.0) Ur Leukocyte Esterase (Negative) Urine RBC (0-5) /hpf Urine WBC (0-5) /hpf Ur Epithelial Cells (0-5) /hpf Urine Bacteria (FEW) /hpf Urine Mucus (FEW) /hpf Urine Opiates Screen (OXPJHR=197) Ur Buprenorphine Scrn (CUTOFF=10) Ur Oxycodone Screen (RUS6OE=853) Urine Methadone Screen (PFMZRY=971) Ur Propoxyphene Screen (MZTRRB=705) Ur Barbiturates Screen (VGCQSC=251) Ur Tricyclics Screen (ALTNBL=624) Ur Phencyclidine Scrn (CUTOFF=25) Ur Amphetamine Screen (ECBOAZ=555) U Methamphetamines Scrn (XYSWWF=127) U Benzodiazepines Scrn (GDRMSM=512) U Cocaine Metab Screen (SPBJSZ=248) U Marijuana (THC) Screen (CUTOFF=50) Ethyl Alcohol (0.00) gm% GWENDOLYN Results - Last 24 hrs: Microbiology 08/07/19 23:50 Aerobic Blood Culture - Preliminary Blood - Venous NO GROWTH AFTER 1 DAY Anaerobic Blood Culture - Preliminary NO GROWTH AFTER 1 DAY 08/07/19 23:40 Aerobic Blood Culture - Preliminary Blood - Venous - Lab Draw NO GROWTH AFTER 1 DAY Anaerobic Blood Culture - Final Med Orders - Current: Current Medications Amoxicillin/Clavulanate Potassium (Augmentin 875 Mg/125 Mg) 1 tab PO Q12HR [facility] Last Admin: 08/08/19 21:14 Dose: 1 tab Aspirin (Ecotrin) 325 mg PO DAILY [facility] Last Admin: 08/08/19 09:10 Dose: 325 mg Dextrose/Water (Dextrose 50% In Water) 50 ml IVPUSH ASDIRECTED PRN PRN Reason: Hypoglycemia Doxycycline Hyclate (Vibramycin) 100 mg PO Q12HR [facility] Last Admin: 08/08/19 21:15 Dose: 100 mg Enoxaparin Sodium (Lovenox) 40 mg SUBCUT DAILY [facility] Last Admin: 08/08/19 09:10 Dose: 40 mg Gabapentin (Neurontin) 300 mg PO BEDTIME [facility] Last Admin: 08/08/19 21:22 Dose: 300 mg Ibuprofen (Motrin) 400 mg PO Q4H PRN PRN Reason: Pain Last Admin: 08/09/19 07:19 Dose: 400 mg Insulin Human Lispro (Humalog) 0 unit SUBCUT QIDACANDBED [facility]; Protocol Last Admin: 05/25/20 07:25 Dose: Not Given Ipratropium Cunningham (Atrovent) 0.5 mg NEB Q6HRRT [facility] Last Admin: 08/09/19 03:18 Dose: 0.5 mg Lisinopril (Prinivil) 10 mg PO DAILY [facility] Last Admin: 08/08/19 09:24 Dose: 10 mg Lorazepam (Ativan) 1 mg IV Q4H PRN PRN Reason: Anxiety Meloxicam 15 Mg (Ptom) 0 mg PO BEDTIME [facility] Last Admin: 08/08/19 21:17 Dose: 1 mg Ondansetron HCl (Zofran) 4 mg IV Q4H PRN PRN Reason: Nausea/Vomiting Pantoprazole Sodium (Protonix) 40 mg PO BEDTIME [facility] Last Admin: 08/08/19 21:18 Dose: 40 mg Pramipexole Dihydrochloride (Mirapex) 0.25 mg PO BEDTIME [facility] Last Admin: 08/08/19 21:17 Dose: 0.25 mg Prednisone (Prednisone) 40 mg PO WITHBREAKFAST [facility] Last Admin: 08/09/19 07:19 Dose: 40 mg Sodium Chloride (Saline Flush) 10 ml FLUSH ASDIRECTED PRN PRN Reason: Keep Vein Open Discontinued Medications Albuterol/Ipratropium (Duoneb 3.0-0.5 Mg/3 Ml) 3 ml NEB ONETIME ONE Stop: 08/07/19 23:22 Last Admin: 08/07/19 23:29 Dose: 3 ml Lactated Ringer's (Ringers, Lactated) 500 mls @ 999 mls/hr IV .BOLUS ONE Stop: 08/08/19 03:01 Last Admin: 08/08/19 03:12 Dose: 999 mls/hr Lactated Ringer's (Ringers, Lactated) 1,000 mls @ 125 mls/hr IV ASDIRECTED [facility] Last Admin: 08/08/19 04:37 Dose: 125 mls/hr Lactated Ringer's (Ringers, Lactated) 500 mls @ 999 mls/hr IV .BOLUS ONE Stop: 08/08/19 06:34 Last Admin: 08/08/19 06:00 Dose: 999 mls/hr Magnesium Sulfate 4 gm/ Premix 50 mls @ 12.5 mls/hr IV ONETIME ONE Stop: 08/08/19 11:29 Last Admin: 08/08/19 09:10 Dose: 12.5 mls/hr Lactated Ringer's (Ringers, Lactated) 1,000 mls @ 150 mls/hr IV ASDIRECTED [facility] Last Admin: 08/08/19 18:22 Dose: 150 mls/hr Ibuprofen (Motrin) 400 mg PO Q4H PRN PRN Reason: Pain Lorazepam (Ativan) 1 mg IVPUSH ONETIME STA Stop: 08/08/19 00:51 Last Admin: 08/08/19 00:59 Dose: 1 mg Pantoprazole Sodium (Protonix) 40 mg PO DAILY [facility] Last Admin: 08/08/19 10:16 Dose: Not Given Prednisone (Prednisone) 60 mg PO ONETIME STA Stop: 08/07/19 23:22 Last Admin: 08/08/19 00:02 Dose: 60 mg - Exam Quality Assessment: Denies: Supplemental Oxygen General: Reports: Alert, Oriented HEENT: Reports: Pupils Equal, Mucous Membr. Moist/Cave Neck: Reports: Supple Lungs: Reports: Clear to Auscultation, Normal Respiratory Effort Cardiovascular: Reports: Regular Rate, Regular Rhythm GI/Abdominal Exam: Normal Bowel Sounds, Soft, Non-Tender, No Organomegaly, No Distention, No Abnormal Bruit, No Mass Back Exam: Reports: Normal Inspection, Full Range of Motion Extremities: Normal Inspection, Normal Range of Motion, Non-Tender, No Pedal Edema, Normal Capillary Refill Psy/Mental Status: Reports: Alert, Normal Affect, Normal Mood
[2019-08-09] MEDS: Doxycycline 100 MG Cap PO SCH (08:30)
[2019-08-09] MEDS: Amoxicillin/Clavulanate K 875-125 MG Tab PO SCH (08:30)
[2019-08-09] MEDS: Aspirin 325 MG Tab.EC PO SCH (08:30)
[2019-08-09] MEDS: Enoxaparin 40 MG/0.4 ML Syringe SUBCUT SCH (08:31)
== END 2019-08-09 10:44 | disposition home or self-care (01) ==
LOC: JD.ED 22:54 → JD.MS 08-08 01:24
PROVIDERS: ADMIT Family Medicine; ATTEND Family Medicine
DX: J43.9 Emphysema, unspecified (principal); E87.3 Alkalosis; R79.81 Abnormal blood-gas level; R06.4 Hyperventilation; R79.89 Other specified abnormal findings of blood chemistry; K58.9 Irritable bowel syndrome, unspecified; E78.00 Pure hypercholesterolemia, unspecified; I10 Essential (primary) hypertension; K21.9 Gastro-esophageal reflux disease without esophagitis; F41.9 Anxiety disorder, unspecified; F32.9 Major depressive disorder, single episode, unspecified; E11.9 Type 2 diabetes mellitus without complications; E66.9 Obesity, unspecified; E78.5 Hyperlipidemia, unspecified; Z20.828 Contact with and (suspected) exposure to other viral communicable diseases; Z87.891 Personal history of nicotine dependence; Z88.5 Allergy status to narcotic agent; Z88.8 Allergy status to other drugs, medicaments and biological substances; Z79.82 Long term (current) use of aspirin; Z79.899 Other long term (current) drug therapy; Z91.14 Patient's other noncompliance with medication regimen; Z68.41 Body mass index [BMI] 40.0-44.9, adult
CPT/HCPCS: 36415; 36600; 71046; 80048; 80053; 80306; 80307; 81001; 82803; 82962; 83605; 83735; 83880; 84145; 84484; 85007; 85025; 85027; 85379; 85610; 85730; 87040; 93005; 94640; 94761; 96361; 96365; 96366; 96372; 96375; 99285; A9270; G0378; J1650; J2060; J3475; J7120; J7512; 93010; 96374; 99284; J7620-GY

== ENCOUNTER 2022-10-25 17:02 | Emergency (ER) | payer MEDICARE, MEDICAID ==
[2022-10-25] MEDS ORDERED: Sodium Chloride 0.9% 10 ML Syringe FLUSH PRN (17:23)
[2022-10-25 17:58] LABS: BASOPHILS ABSOLUTE AUTO 0.05 K/mm3 (0.01-0.08); BASOPHILS PERCENT AUTO 0.5 % (0.1-1.2); EOSINOPHILS ABSOLUTE AUTO 0.18 K/mm3 (0.04-0.36); EOSINOPHILS PERCENT AUTO 1.7 (0.7-5.8); HEMATOCRIT 43.1 % (34.1-44.9); IMMATURE GRAN ABSOLUTE AUTO 0.03 K/mm3 (0.00-0.10); IMMATURE GRAN PERCENT AUTO 0.3 % (<=1.0); LYMPHOCYTES ABSOLUTE AUTO 4.05 K/mm3 (1.18-3.74); LYMPHOCYTES PERCENT AUTO 38.7 % (19.3-51.7); MEAN CORPUSCULAR HEMOGLOBIN 28.1 pg (25.6-32.2); MEAN CORPUSCULAR HGB CONC 32.5 g/dl (32.2-35.5); MEAN CORPUSCULAR VOLUME 86.5 fl (79.4-94.8); MEAN PLATELET VOLUME 9.9 fl (9.4-12.3); MONOCYTES ABSOLUTE AUTO 0.64 K/mm3 (0.24-0.36); MONOCYTES PERCENT AUTO 6.1 % (4.7-12.5); NEUTROPHILS ABSOLUTE AUTO 5.51 K/mm3 (1.56-6.13); NEUTROPHILS PERCENT AUTO 52.7 % (34.0-71.1); PLATELET COUNT,PLT 284 K/mm3 (182-369); RED BLOOD CELL COUNT 4.98 M/mm3 (3.98-5.22); WHITE BLOOD CELL COUNT,WBC 10.46 K/mm3 (3.98-10.04)
[2022-10-25 18:04] LABS: INR 0.94; PROTHROMBIN TIME 10.1 SECONDS (9.7-12.0)
[2022-10-25 18:06] LABS: D-DIMER QUANTITATIVE < 0.19 mg/L (0.19-0.50)
[2022-10-25 18:14] LABS: ALBUMIN 3.8 g/dl (3.4-5.0); ANION GAP 12.8 (5-15); BILIRUBIN TOTAL 0.4 mg/dL (0.2-1.0); CALCIUM 9.7 mg/dL (8.5-10.1); CREATININE 0.5 mg/dL (0.55-1.02); EST CRCL DRUG DOSING (CG) 93.67 mL/min; MAGNESIUM 1.7 mg/dL (1.8-2.4); POTASSIUM,K 3.8 mEq/L (3.5-5.1); PROTEIN TOTAL,TP 7.5 g/dl (6.4-8.2)
[2022-10-25] MEDS ORDERED: Magnesium Oxide 400 MG Tab PO ONE (18:41)
[2022-10-25 19:13] VITALS: BP 149/91; PULSE 68
== END 2022-10-25 18:58 | disposition home or self-care (01) ==
LOC: JD.ED 17:02
DX: R00.2 Palpitations (principal); I10 Essential (primary) hypertension; E11.9 Type 2 diabetes mellitus without complications; E78.00 Pure hypercholesterolemia, unspecified; K21.9 Gastro-esophageal reflux disease without esophagitis; J45.909 Unspecified asthma, uncomplicated; E66.9 Obesity, unspecified; Z68.41 Body mass index [BMI] 40.0-44.9, adult; Z87.891 Personal history of nicotine dependence; Z79.84 Long term (current) use of oral hypoglycemic drugs; Z79.899 Other long term (current) drug therapy; Z88.5 Allergy status to narcotic agent; Z88.1 Allergy status to other antibiotic agents; Z88.8 Allergy status to other drugs, medicaments and biological substances; Z88.6 Allergy status to analgesic agent; Z91.09 Other allergy status, other than to drugs and biological substances
CPT/HCPCS: 36415; 71045; 71045-26; 80053; 83735; 83880; 84484; 85025; 85379; 85610; 93005; 93010; 99284; 99285

== ENCOUNTER 2024-01-21 18:12 | Emergency (ER) | payer MEDICARE, MEDICAID ==
[2024-01-21] MEDS ORDERED: Sodium Chloride 0.9% 10 ML Syringe FLUSH PRN (18:24)
[2024-01-21] MEDS: Albuterol/Ipratropium 3.0-0.5 MG/3 ML Neb Soln NEB ONE (18:39)
[2024-01-21 18:52] LABS: BASE EXCESS ARTERIAL -2.5 (-2-2.0); BICARBONATE,ARTERIAL 22.1 meq/L (22.0-26.0); O2 SATURATION ARTERIAL 92.5 % (96.0-97.0); PCO2 ARTERIAL 39.6 mmHg (35.0-45.0)
[2024-01-21] MEDS: methylPREDNISolone Sodium Succinate 125 MG/2 ML SDV IVPUSH ONE (18:55)
[2024-01-21] MEDS: Sodium Chloride 0.9% 1,000 ML IV ONE (18:56)
[2024-01-21 18:59] LABS: BASOPHILS ABSOLUTE AUTO 0.1 K/mm3 (0.0-0.2); BASOPHILS PERCENT AUTO 0.8 % (0.0-1.0); EOSINOPHILS ABSOLUTE AUTO 0.4 K/mm3 (0.0-0.4); EOSINOPHILS PERCENT AUTO 4.5 % (0.0-6.0); HEMATOCRIT 42.7 % (37.0-47.0); HEMOGLOBIN 13.9 gm/dl (12.0-16.0); IMMATURE GRAN ABSOLUTE AUTO 0.08 K/mm3 (0.00-0.05); IMMATURE GRAN PERCENT AUTO 0.8 % (0.0-0.4); LYMPHOCYTES ABSOLUTE AUTO 3.7 K/mm3 (1.0-4.8); LYMPHOCYTES PERCENT AUTO 37.4 % (24.0-44.0); MEAN CORPUSCULAR HEMOGLOBIN 28.1 pg (28.0-32.0); MEAN CORPUSCULAR HGB CONC 32.6 g/dl (32.0-36.0); MEAN CORPUSCULAR VOLUME 86.4 fl (83.0-99.0); MEAN PLATELET VOLUME 9.7 fl (9.4-12.3); MONOCYTES ABSOLUTE AUTO 0.7 K/mm3 (0.0-0.8); NEUTROPHILS ABSOLUTE AUTO 4.9 K/mm3 (1.8-7.7); NEUTROPHILS PERCENT AUTO 49.5 % (41.0-71.0); PLATELET COUNT,PLT 265 K/mm3 (150-400); RED BLOOD CELL COUNT 4.94 M/mm3 (4.10-5.30); WHITE BLOOD CELL COUNT,WBC 9.88 K/mm3 (3.9-11.3)
[2024-01-21] MEDS: Azithromycin 500 MG in Sodium Chloride 0.9% 250 ML IV ONE (19:22)
[2024-01-21 19:32] LABS: A/G RATIO 1.2 (1-2); ANION GAP 12.8 (5-15); BILIRUBIN TOTAL 0.6 mg/dL (0.2-1.0); BUN/CREATININE RATIO 16.7 (14-18); CALCIUM 10.1 mg/dL (8.5-10.1); CREATININE 0.6 mg/dL (0.55-1.02); EST CRCL DRUG DOSING (CG) 77.12 mL/min; MAGNESIUM 1.9 mg/dL (1.8-2.4); POTASSIUM,K 3.8 mEq/L (3.5-5.1); PROTEIN TOTAL,TP 7.4 g/dl (6.4-8.2)
[2024-01-21 19:35] LABS: LACTIC ACID 1.6 mmol/L (0.4-2.0)
[2024-01-21 19:41] LABS: APPEARANCE,URINE CLEAR (Clear); BILIRUBIN,URINE NEGATIVE (Negative); COLOR,URINE YELLOW (Yellow); GLUCOSE,URINE NEGATIVE (Negative); KETONES,URINE NEGATIVE (Negative); LEUKOCYTE ESTERASE,URINE NEGATIVE (Negative); NITRITE,URINE NEGATIVE (Negative); OCCULT BLOOD,URINE TRACE-INTACT (Negative); PROTEIN,URINE NEGATIVE (Negative); UROBILINOGEN,URINE 0.2 (0.2-1.0)
[2024-01-21 19:44] LABS: CORONAVIRUS COVID-19 NAA NEGATIVE (NEGATIVE); INFLUENZA A NAA NEGATIVE (NEGATIVE); RESPIRATORY SYNCYTIAL VIR NAA NEGATIVE (NEGATIVE)
[2024-01-21 19:47] LABS: BACTERIA,URINE NOT SEEN /hpf (FEW); EPITHELIAL CELLS,URINE 0-5 /hpf (0-5); MUCUS,URINE NOT SEEN /hpf (FEW); RBC,URINE 0-5 /hpf (0-5); WBC,URINE 0-5 /hpf (0-5)
[2024-01-21 20:54] VITALS: BP 131/83; PULSE 79
== END 2024-01-21 20:40 | disposition home or self-care (01) ==
LOC: JD.ED 18:12
DX: J44.1 Chronic obstructive pulmonary disease with (acute) exacerbation (principal); I10 Essential (primary) hypertension; E78.00 Pure hypercholesterolemia, unspecified; K21.9 Gastro-esophageal reflux disease without esophagitis; M19.90 Unspecified osteoarthritis, unspecified site; E11.9 Type 2 diabetes mellitus without complications; E66.9 Obesity, unspecified; Z68.41 Body mass index [BMI] 40.0-44.9, adult; Z90.49 Acquired absence of other specified parts of digestive tract; Z90.710 Acquired absence of both cervix and uterus; Z86.73 Personal history of transient ischemic attack (TIA), and cerebral infarction without residual deficits; Z88.6 Allergy status to analgesic agent; Z88.8 Allergy status to other drugs, medicaments and biological substances; Z88.5 Allergy status to narcotic agent; Z91.048 Other nonmedicinal substance allergy status; Z79.82 Long term (current) use of aspirin; Z79.84 Long term (current) use of oral hypoglycemic drugs; Z79.51 Long term (current) use of inhaled steroids; Z79.52 Long term (current) use of systemic steroids; Z79.899 Other long term (current) drug therapy
CPT/HCPCS: 0241U; 36415; 36600; 71045; 80053; 81001; 82803; 83605; 83735; 83880; 84484; 85025; 85379; 87040; 93005; 94640; 96365; 96375; 99285; J0456; J2919; J7030; J7050; 93010; 99284; J7620-GY

== ENCOUNTER 2024-02-08 08:10 | Emergency (ER) | payer MEDICARE, MEDICAID ==
[2024-02-08] MEDS: HYDROmorphone 1 MG/ML Syringe IM ONE (08:43)
[2024-02-08] MEDS: Cyclobenzaprine 10 MG Tab PO ONE (08:43)
[2024-02-08 08:49] LABS: BASOPHILS ABSOLUTE AUTO 0.1 K/mm3 (0.0-0.2); BASOPHILS PERCENT AUTO 0.5 % (0.0-1.0); EOSINOPHILS ABSOLUTE AUTO 0.3 K/mm3 (0.0-0.4); EOSINOPHILS PERCENT AUTO 2.8 % (0.0-6.0); HEMATOCRIT 42.9 % (37.0-47.0); HEMOGLOBIN 13.9 gm/dl (12.0-16.0); IMMATURE GRAN ABSOLUTE AUTO 0.04 K/mm3 (0.00-0.05); IMMATURE GRAN PERCENT AUTO 0.3 % (0.0-0.4); LYMPHOCYTES PERCENT AUTO 25.2 % (24.0-44.0); MEAN CORPUSCULAR HEMOGLOBIN 27.9 pg (28.0-32.0); MEAN CORPUSCULAR HGB CONC 32.4 g/dl (32.0-36.0); MEAN CORPUSCULAR VOLUME 86.1 fl (83.0-99.0); MEAN PLATELET VOLUME 9.6 fl (9.4-12.3); MONOCYTES ABSOLUTE AUTO 0.7 K/mm3 (0.0-0.8); MONOCYTES PERCENT AUTO 5.5 % (0.0-8.0); NEUTROPHILS ABSOLUTE AUTO 7.9 K/mm3 (1.8-7.7); NEUTROPHILS PERCENT AUTO 65.7 % (41.0-71.0); PLATELET COUNT,PLT 240 K/mm3 (150-400); RED BLOOD CELL COUNT 4.98 M/mm3 (4.10-5.30); WHITE BLOOD CELL COUNT,WBC 12.03 K/mm3 (3.9-11.3)
[2024-02-08] MEDS: Ketorolac 60 MG/2 ML SDV IM ONE (08:52)
[2024-02-08 09:10] VITALS: BP 108/78; PULSE 56
[2024-02-08 09:10] LABS: A/G RATIO 1.1 (1-2); ALBUMIN 3.6 g/dl (3.4-5.0); BILIRUBIN TOTAL 0.7 mg/dL (0.2-1.0); BUN/CREATININE RATIO 22.9 (14-18); CALCIUM 9.9 mg/dL (8.5-10.1); CREATININE 0.7 mg/dL (0.55-1.02); EST CRCL DRUG DOSING (CG) 66.1 mL/min
== END 2024-02-08 10:32 | disposition home or self-care (01) ==
LOC: JD.ED 08:10
DX: M54.42 Lumbago with sciatica, left side (principal); I10 Essential (primary) hypertension; E78.00 Pure hypercholesterolemia, unspecified; J44.9 Chronic obstructive pulmonary disease, unspecified; K21.9 Gastro-esophageal reflux disease without esophagitis; E66.9 Obesity, unspecified; E11.9 Type 2 diabetes mellitus without complications; Z86.73 Personal history of transient ischemic attack (TIA), and cerebral infarction without residual deficits; Z87.891 Personal history of nicotine dependence; Z79.899 Other long term (current) drug therapy; Z79.84 Long term (current) use of oral hypoglycemic drugs; Z79.82 Long term (current) use of aspirin; Z88.8 Allergy status to other drugs, medicaments and biological substances; Z88.5 Allergy status to narcotic agent; Z91.048 Other nonmedicinal substance allergy status; Z68.42 Body mass index [BMI] 45.0-49.9, adult
CPT/HCPCS: 36415; 72100; 73502; 80053; 85025; 85379; 96372; 99283; A9270; J1171

== ENCOUNTER 2024-08-07 08:37 | Emergency (ER) | payer MEDICARE, MEDICAID ==
[2024-08-07] MEDS: Sodium Chloride 0.9% 10 ML Syringe FLUSH PRN (08:53)
[2024-08-07 09:01] VITALS: PULSE 59
[2024-08-07 09:19] LABS: BASOPHILS ABSOLUTE AUTO 0.1 K/mm3 (0.0-0.2); BASOPHILS PERCENT AUTO 0.6 % (0.0-1.0); EOSINOPHILS ABSOLUTE AUTO 0.2 K/mm3 (0.0-0.4); EOSINOPHILS PERCENT AUTO 2.5 % (0.0-6.0); HEMOGLOBIN 14.3 gm/dl (12.0-16.0); IMMATURE GRAN ABSOLUTE AUTO 0.04 K/mm3 (0.00-0.05); IMMATURE GRAN PERCENT AUTO 0.5 % (0.0-0.4); LYMPHOCYTES ABSOLUTE AUTO 3.4 K/mm3 (1.0-4.8); LYMPHOCYTES PERCENT AUTO 40.4 % (24.0-44.0); MEAN CORPUSCULAR HEMOGLOBIN 27.9 pg (28.0-32.0); MEAN CORPUSCULAR HGB CONC 31.8 g/dl (32.0-36.0); MEAN CORPUSCULAR VOLUME 87.7 fl (83.0-99.0); MEAN PLATELET VOLUME 10.2 fl (9.4-12.3); MONOCYTES ABSOLUTE AUTO 0.4 K/mm3 (0.0-0.8); MONOCYTES PERCENT AUTO 4.7 % (0.0-8.0); NEUTROPHILS ABSOLUTE AUTO 4.3 K/mm3 (1.8-7.7); NEUTROPHILS PERCENT AUTO 51.3 % (41.0-71.0); PLATELET COUNT,PLT 244 K/mm3 (150-400); RED BLOOD CELL COUNT 5.13 M/mm3 (4.10-5.30); WHITE BLOOD CELL COUNT,WBC 8.44 K/mm3 (3.9-11.3)
[2024-08-07] MEDS: Aspirin 81 MG Tab.Chew PO ONE (09:48)
[2024-08-07 09:55] LABS: A/G RATIO 1.1 (1-2); ALBUMIN 3.7 g/dl (3.4-5.0); ANION GAP 13.8 (5-15); BILIRUBIN TOTAL 0.5 mg/dL (0.2-1.0); BUN/CREATININE RATIO 24.3 (14-18); CALCIUM 9.7 mg/dL (8.5-10.1); CREATININE 0.7 mg/dL (0.55-1.02); EST CRCL DRUG DOSING (CG) 65.3 mL/min; MAGNESIUM 1.8 mg/dL (1.8-2.4); POTASSIUM,K 3.8 mEq/L (3.5-5.1); PROTEIN TOTAL,TP 7.2 g/dl (6.4-8.2)
[2024-08-07 19:17] VITALS: BP 129/82
== END 2024-08-07 13:10 | disposition home or self-care (01) ==
LOC: JD.ED 08:37
DX: R07.89 Other chest pain (principal); I10 Essential (primary) hypertension; J45.909 Unspecified asthma, uncomplicated; K21.9 Gastro-esophageal reflux disease without esophagitis; E11.9 Type 2 diabetes mellitus without complications; E66.9 Obesity, unspecified; E78.00 Pure hypercholesterolemia, unspecified; Z88.5 Allergy status to narcotic agent; Z88.8 Allergy status to other drugs, medicaments and biological substances; Z79.82 Long term (current) use of aspirin; Z79.899 Other long term (current) drug therapy; Z79.84 Long term (current) use of oral hypoglycemic drugs; Z90.49 Acquired absence of other specified parts of digestive tract; Z90.710 Acquired absence of both cervix and uterus; Z87.891 Personal history of nicotine dependence
CPT/HCPCS: 36415; 71045; 71045-26; 80053; 83735; 84484; 85025; 85379; 93005; 99285; A9270-GY

== ENCOUNTER 2025-02-14 14:05 | Emergency (ER) | payer MEDICARE, MEDICAID ==
[2025-02-14] MEDS ORDERED: Sodium Chloride 0.9% 10 ML Syringe FLUSH PRN (14:46)
[2025-02-14 15:09] LABS: BASOPHILS ABSOLUTE AUTO 0.1 K/mm3 (0.0-0.2); BASOPHILS PERCENT AUTO 0.7 % (0.0-1.0); EOSINOPHILS ABSOLUTE AUTO 0.2 K/mm3 (0.0-0.4); EOSINOPHILS PERCENT AUTO 2.0 % (0.0-6.0); IMMATURE GRAN ABSOLUTE AUTO 0.03 K/mm3 (0.00-0.05); IMMATURE GRAN PERCENT AUTO 0.4 % (0.0-0.4); LYMPHOCYTES ABSOLUTE AUTO 3.2 K/mm3 (1.0-4.8); LYMPHOCYTES PERCENT AUTO 39.9 % (24.0-44.0); MEAN PLATELET VOLUME 9.7 fl (9.4-12.3); MONOCYTES ABSOLUTE AUTO 0.5 K/mm3 (0.0-0.8); MONOCYTES PERCENT AUTO 6.5 % (0.0-8.0); NEUTROPHILS ABSOLUTE AUTO 4.1 K/mm3 (1.8-7.7); NEUTROPHILS PERCENT AUTO 50.5 % (41.0-71.0); NRBC ABSOLUTE 0.00 (0.00-0.02); NRBC PERCENT 0.0 % (0.0-0.2); PLATELET COUNT,PLT 237 K/mm3 (150-400); RED BLOOD CELL COUNT 4.89 M/mm3 (4.10-5.30); WHITE BLOOD CELL COUNT,WBC 8.13 K/mm3 (3.9-11.3)
[2025-02-14 15:34] LABS: LACTIC ACID 1.5 mmol/L (0.4-2.0)
[2025-02-14 15:35] LABS: A/G RATIO 1.1 (1-2); ALANINE AMINOTRANSFERASE,ALT 35 U/L (14-59); ASPARTATE AMNIOTRANSFERASE,AST 22 U/L (15-37); BILIRUBIN TOTAL 0.6 mg/dL (0.2-1.0); BLOOD UREA NITROGEN,BUN 14 mg/dL (7-18); CARBON DIOXIDE,CO2 23 mEq/L (21-32); CHLORIDE,CL 107 mEq/L (98-107); CREATININE 0.6 mg/dL (0.55-1.02); EST CRCL DRUG DOSING (CG) 76.18 mL/min; ESTIMATED GFR 103 mL/min (>60); GLUCOSE RANDOM 97 mg/dL (70-99); POTASSIUM,K 3.7 mEq/L (3.5-5.1); PROTEIN TOTAL,TP 7.2 g/dl (6.4-8.2); SODIUM,NA 141 mEq/L (136-145); TROPONIN I HIGH SENSITIVITY 7 pg/mL (<=51)
[2025-02-14] MEDS: Sodium Chloride 0.9% 10 ML Syringe FLUSH ONE (15:48)
[2025-02-14] MEDS: Iopamidol 612 MG/ML 100 ML Bottle IVPUSH ONE (15:48)
[2025-02-14 16:55] LABS: APPEARANCE,URINE CLEAR (Clear); GLUCOSE,URINE NEGATIVE (Negative); OCCULT BLOOD,URINE TRACE-LYSED (Negative)
[2025-02-14 17:02] LABS: EPITHELIAL CELLS,URINE 0-5 /hpf (0-5)
[2025-02-14 19:02] VITALS: BP 145/96; PULSE 69
== END 2025-02-14 18:25 | disposition home or self-care (01) ==
LOC: JD.ED 14:05
DX: R10.12 Left upper quadrant pain (principal); R19.7 Diarrhea, unspecified; M19.90 Unspecified osteoarthritis, unspecified site; E66.9 Obesity, unspecified; E11.9 Type 2 diabetes mellitus without complications; J44.89 Other specified chronic obstructive pulmonary disease; I10 Essential (primary) hypertension; E78.00 Pure hypercholesterolemia, unspecified; Z88.8 Allergy status to other drugs, medicaments and biological substances; Z88.6 Allergy status to analgesic agent; Z88.1 Allergy status to other antibiotic agents; Z88.5 Allergy status to narcotic agent; Z91.048 Other nonmedicinal substance allergy status; Z79.82 Long term (current) use of aspirin; Z79.899 Other long term (current) drug therapy; Z79.84 Long term (current) use of oral hypoglycemic drugs; Z79.51 Long term (current) use of inhaled steroids; Z90.89 Acquired absence of other organs
CPT/HCPCS: 36415; 74177; 80053; 81001; 83605; 83690; 83735; 83880; 84484; 85025; 86140; 93005; 99284; Q9967; 93010